=== PATIENT | female | born 1965 | race Caucasian/White ===

== ENCOUNTER → 2020-11-12 08:45 | Outpatient (BNVA) | payer MEDICAID, SELFPAY | PROVIDERS: PCP Internal Medicine; Visit Provider Nurse Practitioner Family | DX: M47.27 Other spondylosis with radiculopathy, lumbosacral region (principal); M96.1 Postlaminectomy syndrome, not elsewhere classified; Z79.891 Long term (current) use of opiate analgesic | CPT/HCPCS: 99202 ==

== ENCOUNTER → 2020-12-17 09:35 | Outpatient (BNVA) | payer MEDICAID, SELFPAY | PROVIDERS: PCP Internal Medicine; Visit Provider Nurse Practitioner Family | DX: M96.1 Postlaminectomy syndrome, not elsewhere classified (principal); M47.27 Other spondylosis with radiculopathy, lumbosacral region; Z79.891 Long term (current) use of opiate analgesic | CPT/HCPCS: 99212 ==

== ENCOUNTER → 2021-01-21 09:53 | Outpatient (BNVA) | payer MEDICAID, SELFPAY | PROVIDERS: PCP Internal Medicine; Visit Provider Nurse Practitioner Family | DX: M96.1 Postlaminectomy syndrome, not elsewhere classified (principal); M47.27 Other spondylosis with radiculopathy, lumbosacral region; Z79.891 Long term (current) use of opiate analgesic | CPT/HCPCS: 99212 ==

== ENCOUNTER 2021-01-21 10:44 | Outpatient (REF) | payer MEDICAID, SELFPAY ==
[2021-01-21 13:29] LABS: Blood Urea Nitrogen 18 mg/dL (9-16); Estimated Glomerular Filt Rate > 60
== END 2021-01-21 10:45 | disposition home or self-care (01) ==
LOC: HO.10HDL 10:44
PROVIDERS: Visit Provider Nurse Practitioner Family
DX: Z01.818 Encounter for other preprocedural examination (principal)
CPT/HCPCS: 36415; 82565; 84520

== ENCOUNTER → 2021-02-18 10:12 | Outpatient (BNVA) | payer MEDICAID, SELFPAY | PROVIDERS: PCP Internal Medicine; Visit Provider Nurse Practitioner Family | DX: M96.1 Postlaminectomy syndrome, not elsewhere classified (principal); M47.27 Other spondylosis with radiculopathy, lumbosacral region; Z79.891 Long term (current) use of opiate analgesic | CPT/HCPCS: 99212 ==

== ENCOUNTER → 2021-03-18 10:00 | Outpatient (BNVA) | payer MEDICAID, SELFPAY | PROVIDERS: PCP Internal Medicine; Visit Provider Nurse Practitioner Family | DX: M96.1 Postlaminectomy syndrome, not elsewhere classified (principal); M47.27 Other spondylosis with radiculopathy, lumbosacral region; Z79.891 Long term (current) use of opiate analgesic | CPT/HCPCS: 99212 ==

== ENCOUNTER → 2021-04-22 10:05 | Outpatient (BNVA) | payer MEDICAID, SELFPAY | PROVIDERS: PCP Internal Medicine; Visit Provider Nurse Practitioner Family | DX: M96.1 Postlaminectomy syndrome, not elsewhere classified (principal); M47.27 Other spondylosis with radiculopathy, lumbosacral region; Z79.891 Long term (current) use of opiate analgesic | CPT/HCPCS: 99212 ==

== ENCOUNTER → 2021-05-20 10:39 | Outpatient (BNVA) | payer MEDICAID, SELFPAY | PROVIDERS: PCP Internal Medicine; Visit Provider Nurse Practitioner Family | DX: M96.1 Postlaminectomy syndrome, not elsewhere classified (principal); M47.27 Other spondylosis with radiculopathy, lumbosacral region; Z79.891 Long term (current) use of opiate analgesic | CPT/HCPCS: 99212 ==

== ENCOUNTER → 2021-06-24 11:43 | Outpatient (BNVA) | payer MEDICAID, SELFPAY | PROVIDERS: PCP Internal Medicine; Visit Provider Nurse Practitioner Family | DX: Z51.81 Encounter for therapeutic drug level monitoring (principal); M96.1 Postlaminectomy syndrome, not elsewhere classified; M47.27 Other spondylosis with radiculopathy, lumbosacral region; Z79.891 Long term (current) use of opiate analgesic | CPT/HCPCS: 99212 ==

== ENCOUNTER 2021-07-04 06:26 | Day surgery (SDC) | payer MEDICAID, SELFPAY ==
[2021-06-27 09:18] VITALS: BMI 47.0
--- NOTE | ~2021-07-04 | FL_ITS ---
EXAMINATION: XR FLUOROSCOPY WITH IMAGES CLINICAL INFORMATION: Battery change COMPARISON: None. TECHNIQUE: Fluoroscopy performed by Dr. Heladio Molina. Fluoroscopy time: 0.0 minutes DAP: 3.93 Gycm2 Images: 2 FINDINGS: Partially imaged spinal stimulator. The generator pack overlies the left iliac crest. The leads terminate at the level of the ninth ribs. FL/FL guidance in OR IMPRESSION: Fluoroscopic guidance provided as described above.
[2021-07-04 06:33] VITALS: BMI 47.0
[2021-07-04 06:45] VITALS: BP 142/60; PULSE 85; RESP 16; TEMP 37.1; O2SAT 95
--- NOTE | 2021-07-04 07:23 | HO.ANESPROP2 ---
HPI - Anesthesia Eval Consult details Narrative: 55 yo female patient for spinal cord stimulator battery replacement PMFSH Active Problems Active Problems: All Active Problems (Updated 07/04/21 @ 06:44 by Jamee Graham) senior living (current) use of opiate analgesic (Acute) Spondylosis of lumbosacral spine with radiculopathy (Acute) Post-laminectomy syndrome (Acute) Preprocedural examination (Acute) S/P insertion of spinal cord stimulator (Acute) +Snoring. Never tested for SHARAD Morbid obesity Past Medical History Medical History (Updated 07/04/21 @ 06:44 by Jamee Graham) Broken humerus Family History Family history of problems with anesthesia: No Surgical History Surgical History (Updated 07/04/21 @ 07:57 by Pati Mcgarry MD) H/O laminectomy H/O: hysterectomy Right humeral fracture History of Problems with Anesthesia: No Social History Social History Patient Tobacco Use Status: Never used Tobacco Use of substances other than those prescribed or required for medical reasons: No Are you DNR?: No Advance Directives: No Advance Directives Information Provided: Yes Meds Allergies Allergy/AdvReac Type Severity Reaction Status Date / Time No Known Allergies Allergy Verified 07/04/21 06:33 Home Medications Medication Instructions Recorded Confirmed Last Taken Type citalopram 10 mg tablet (Celexa) 10 mg PO DAILY 11/12/20 06/24/21 Unknown History diclofenac 50 mg-misoprostol 200 1 tab PO BID 11/12/20 06/24/21 Unknown History mcg tablet,immed.and delayed release fluticasone propionate 220 1 puff INHALATION BID 11/12/20 06/24/21 Unknown History mcg/actuation HFA aerosol inhaler (Flovent HFA) ipratropium 20 mcg-albuterol 100 1 puff INHALATION Q6H 11/12/20 06/24/21 Unknown History mcg/actuation mist for inhalation (Combivent Respimat) lamotrigine 150 mg tablet 150 mg PO DAILY 11/12/20 06/24/21 Unknown History (Lamictal) montelukast 10 mg tablet 10 mg PO BEDTIME 11/12/20 06/24/21 Unknown History (Singulair) tizanidine 2 mg capsule 2 mg PO BEDTIME 11/12/20 06/24/21 Unknown History Exam Exam Date and Time: July 04, 2021 0723 Height,Weight and Vital Signs: Height 5 ft 7 in Weight 136.078 kg Last Vital Signs Temp 98.7 F 07/04/21 06:45 Pulse 85 07/04/21 06:45 Resp 16 07/04/21 06:45 BP 142/60 H 07/04/21 06:45 Pulse Ox 95 07/04/21 06:45 Airway Mallampati Class: II TM Dist: >3cm Neck ROM: Full Loose/Missing/Broken Teeth: Yes (Some missing) Heart: RRR Lungs: CTAB Assessment and Plan Assessment Anesthesia Assessment: Anesthesia Plan Discussed and Chart Reviewed Final Anesthetic Review Family History of Problems with Anesthesia: No History of Problems with Anesthesia: No NPO: Yes ASA Class: III Final Preanesthetic Review: No Changes in Pt Med Stat, Meds/Allgs Chart Reviewed, Consent Obtained/Reviewed and Anes Risks/Benef Reviewed Patient Risk: Intermediate Procedure Risk: Low Assessment/Block/Sedation in SS: Assess/Block/Sedation-SS Anesthetic Plan Anesthetic Plan: MAC: Disposition: Standard PACU
[2021-07-04] MEDS: ceFAZolin Sodium 3 GM in 0.9 % Sodium Chloride 100 ML IV (07:45)
[2021-07-04] MEDS: Lactated Ringers 1,000 ML 100 ML IVCONT (07:59)
[2021-07-04 09:26] VITALS: BP 146/67; PULSE 77; RESP 20; TEMP 36.4; O2SAT 97
--- NOTE | 2021-07-04 09:27 | PM.OP ---
Brief Operative Note Date of Service: 07/04/21 Pre-op diagnosis: Postlaminectomy syndrome, presence of spinal cord stimulator nonfunctioning Post-op diagnosis: same Procedure: Revision of the battery of the spinal cord stimulator [employer] replacement with the new battery. New battery is alpha Implants: New alpha battery [employer] Surgeon: Heladio Molina MD Anesthesia: MAC Was an Photographic Equipment Technician used for this Procedure?: No Estimated blood loss (mL): 20 Pathology: none sent Condition: stable Disposition: PACU
--- NOTE | 2021-07-04 09:35 | W.PM.OPN ---
Operative Note Operative Note Date of Service: 07/04/21 Narrative: Cris is very pleasant 55 years old female who presented herself in my office with complains on movable battery and end of life of the battery of spinal cord stimulator. She came today to the operating room to do revision of the old battery and replacement with the new after technology battery. After a in explaining informed consent the patient was taking to the operating room where she was positioned prone right opting table. C-arm was brought of the operating field and of the spinal cord stimulating system was examined under C-arm view. The appropriate position of the leads was noted in the posterior epidural space. The leads were in the projection of T9 vertebra. The position of the battery was in the left buttock. After that the patient was sedated a and time-out was performed. Time-out was delineating name of the patient date of of the patient, side of the surgery, site of the surgery, risk of fire, risk of DVT, need for antibiotics. The patient received 3 g of cefazolin IV before the onset of the surgery 20 minutes before the incision. Her lower back was prepped with ChloraPrep and draped with full body drape including Ioban film. The previous scar of implantation of the old battery was located in the area of the left buttock. The area of the scar was infiltrated with mixture of lidocaine 2% and Marcaine 0.5%. Two Allis clamps were applied on most medial and most lateral portions of the scar. To incisions were made along side the scar 1 superior and 1 inferior the scar line. The incisions were connected using 10 blade scalpel at lateral and medial sides of previous scar. After that the scar incision was performed thorough hemostasis was obtained using Bovie and I 1 intermittent 3-0 Polysorb suture. After that the battery and stimulating leads were located under subcutaneous tissues there were freed from adhesions and the battery was delivered to the surface of the skin. The hexagonal screws were lose using Aristotle Circle hexagonal screwdriver. After that the battery was disconnected from the leads and delivered to the table. New battery was obtained sterilely. It was connected to the existing screws. The care was taking to superimpose the electrodes on the leads to connection to the battery. The impedance was read and it was demonstrated good connections. Thorough irrigation was performed into the wound and hemostasis was checked. After that to anchoring sutures 1 in the center of the top of the wound and 1 to most lateral corner of the wound were applied using Tycron suture. The electrode leads were gathered behind the body of the battery and battery and electrodes were inserted into the wound pocket. Tycron sutures were tied. After that irrigation was repeated, thorough hemostasis was checked and wound was closed using 0 Polysorb to close the wound, 2-0 Polysorb to approximate the level of the skin, and gosia to close the level of the skin. Bacitracin ointment was applied to the staple line. After that sterile dressing for by forwards applied using Medipore tape. Upon completion of the procedure the patient was taking outside of the operating room, she went for recovery in the PACU. There were no immediate complications.
[2021-07-04 09:41] VITALS: BP 158/77; PULSE 69; RESP 18; O2SAT 100
[2021-07-04 10:00] VITALS: BP 158/93; PULSE 63; RESP 16; TEMP 36.2; O2SAT 100
--- NOTE | 2021-07-04 13:12 | P.HPSUR_ITS ---
Pre-Procedural Eval Section A Date of Service: 07/04/21 Section B Chief Complaint: post laminectomy,spondylosis of lumbosacral Details of Present Illness: as above Relevant Family History (Specify if Yes): No Relevant Social History: None Present Medications: see Short Stay Collaborative assessment Medical History: No relevant PMH History of Previous Operations: Relevant previous surgery/procedure and date(s) Allergies: Allergies Allergy/AdvReac Type Severity Reaction Status Date / Time No Known Allergies Allergy Verified 07/04/21 06:33 Review of Systems Sugical H&P ROS: Negative: Cardiovascular, Respiratory, Neurological, Psych iatric, Hem-Onc, Allergic/Immunologic, Gastrointestinal, Genitourinary, Musculoskeletal, Integumentary, Endocrine and Eyes/Ears/Nose/Throat and Yes, Specify: Constitution (Morbid obesity) Exam Surgical H&P Exam: Normal: HEENT, Normal: Heart, Normal: Lungs, Normal: Extremities, Normal: Skin and Normal: Neurological and Significant Findings: Abdomen (Greatly enlarged) Plan I have reviewed the history and physical and performed a pertinent physical examination on my patient. No changes have occurred unless specified.
== END 2021-07-04 10:39 | disposition home or self-care (01) ==
PROVIDERS: PCP Internal Medicine; Visit Provider Anesthesiology
PROC: (CPT 63685; principal; 2021-07-04 07:30)
DX: Z45.42 Encounter for adjustment and management of neurostimulator (principal); M96.1 Postlaminectomy syndrome, not elsewhere classified; M47.27 Other spondylosis with radiculopathy, lumbosacral region
CPT/HCPCS: 63685; C1787; C1820; J0690; J2250; J3010; J3370

== ENCOUNTER 2021-07-07 13:59 | Outpatient (REF) | payer MEDICAID, SELFPAY ==
--- NOTE | ~2021-07-07 | XR_ITS ---
EXAMINATION: XR THORACOLUMBAR SPINE CLINICAL INFORMATION: Presence of other specified functional implants COMPARISON: Intraoperative fluoroscopy July 04, 2021 TECHNIQUE: 2 views of the thoracic spine were obtained. FINDINGS: Normal alignment of the thoracic spine. Thoracic vertebral body heights are maintained. Disc spaces throughout the mid thoracic spine demonstrate mild to moderate narrowing diffusely. Partially visualized spinal stimulator leads project over the lower thoracic spine. Visualized lung parenchyma is well aerated. XR/XR thoracic spine 2V IMPRESSION: Partially visualized spinal stimulator leads project over the lower thoracic spine
== END 2021-07-07 14:00 | disposition home or self-care (01) ==
LOC: HO.XRAY 13:59
PROVIDERS: Visit Provider Nurse Practitioner Family
DX: Z96.89 Presence of other specified functional implants (principal)
CPT/HCPCS: 72070

== ENCOUNTER → 2021-07-10 11:24 | Outpatient (BNVA) | payer MEDICAID, SELFPAY | PROVIDERS: PCP Internal Medicine; Visit Provider Anesthesiology | DX: M96.1 Postlaminectomy syndrome, not elsewhere classified (principal); M47.27 Other spondylosis with radiculopathy, lumbosacral region; Z79.891 Long term (current) use of opiate analgesic | CPT/HCPCS: 99212 ==

== ENCOUNTER → 2021-07-17 11:25 | Outpatient (BNVA) | payer MEDICAID, SELFPAY | PROVIDERS: PCP Internal Medicine; Visit Provider Anesthesiology | DX: M96.1 Postlaminectomy syndrome, not elsewhere classified (principal); M47.27 Other spondylosis with radiculopathy, lumbosacral region; Z79.891 Long term (current) use of opiate analgesic | CPT/HCPCS: 99212 ==

== ENCOUNTER → 2021-07-22 11:04 | Outpatient (BNVA) | payer MEDICAID, SELFPAY | PROVIDERS: PCP Internal Medicine; Visit Provider Nurse Practitioner Family | DX: Z51.81 Encounter for therapeutic drug level monitoring (principal); M96.1 Postlaminectomy syndrome, not elsewhere classified; M47.27 Other spondylosis with radiculopathy, lumbosacral region; Z79.891 Long term (current) use of opiate analgesic | CPT/HCPCS: 99212 ==

== ENCOUNTER → 2021-08-26 10:48 | Outpatient (BNVA) | payer MEDICAID, SELFPAY | PROVIDERS: Visit Provider Nurse Practitioner Family | DX: Z51.81 Encounter for therapeutic drug level monitoring (principal); M96.1 Postlaminectomy syndrome, not elsewhere classified; M47.27 Other spondylosis with radiculopathy, lumbosacral region; S42.309D Unspecified fracture of shaft of humerus, unspecified arm, subsequent encounter for fracture with routine healing; Z79.891 Long term (current) use of opiate analgesic | CPT/HCPCS: 99212 ==

== ENCOUNTER → 2021-09-23 10:10 | Outpatient (BNVA) | payer MEDICAID, SELFPAY | PROVIDERS: Visit Provider Nurse Practitioner Family | DX: Z51.81 Encounter for therapeutic drug level monitoring (principal); M96.1 Postlaminectomy syndrome, not elsewhere classified; M47.27 Other spondylosis with radiculopathy, lumbosacral region; Z79.891 Long term (current) use of opiate analgesic; S42.309D Unspecified fracture of shaft of humerus, unspecified arm, subsequent encounter for fracture with routine healing | CPT/HCPCS: 99212 ==

== ENCOUNTER → 2021-10-21 12:54 | Outpatient (BNVA) | payer MEDICAID, SELFPAY | PROVIDERS: PCP Internal Medicine; Visit Provider Nurse Practitioner Family | DX: Z51.81 Encounter for therapeutic drug level monitoring (principal); S42.309D Unspecified fracture of shaft of humerus, unspecified arm, subsequent encounter for fracture with routine healing; M96.1 Postlaminectomy syndrome, not elsewhere classified; M47.27 Other spondylosis with radiculopathy, lumbosacral region; Z79.891 Long term (current) use of opiate analgesic | CPT/HCPCS: 99212 ==

== ENCOUNTER → 2021-11-18 10:55 | Outpatient (BNVA) | payer MEDICAID, SELFPAY | PROVIDERS: PCP Internal Medicine; Visit Provider Nurse Practitioner Family | DX: Z51.81 Encounter for therapeutic drug level monitoring (principal); M96.1 Postlaminectomy syndrome, not elsewhere classified; M47.27 Other spondylosis with radiculopathy, lumbosacral region; S42.309D Unspecified fracture of shaft of humerus, unspecified arm, subsequent encounter for fracture with routine healing; Z79.891 Long term (current) use of opiate analgesic | CPT/HCPCS: 99212 ==

== ENCOUNTER → 2021-12-16 11:04 | Outpatient (BNVA) | payer MEDICAID, SELFPAY | PROVIDERS: PCP Internal Medicine; Visit Provider Nurse Practitioner Family | DX: F11.20 Opioid dependence, uncomplicated (principal); Z51.81 Encounter for therapeutic drug level monitoring; M96.1 Postlaminectomy syndrome, not elsewhere classified; M47.27 Other spondylosis with radiculopathy, lumbosacral region; S42.309A Unspecified fracture of shaft of humerus, unspecified arm, initial encounter for closed fracture | CPT/HCPCS: 99212 ==

== ENCOUNTER → 2022-01-13 13:01 | Outpatient (BNVA) | payer MEDICAID, SELFPAY | PROVIDERS: PCP Internal Medicine; Visit Provider Nurse Practitioner Family | DX: M96.1 Postlaminectomy syndrome, not elsewhere classified (principal); M47.27 Other spondylosis with radiculopathy, lumbosacral region; S42.301D Unspecified fracture of shaft of humerus, right arm, subsequent encounter for fracture with routine healing; Z79.891 Long term (current) use of opiate analgesic | CPT/HCPCS: 99212 ==

== ENCOUNTER → 2022-02-10 10:05 | Outpatient (BNVA) | payer MEDICAID, SELFPAY | PROVIDERS: PCP Internal Medicine; Visit Provider Nurse Practitioner Family | DX: Z51.81 Encounter for therapeutic drug level monitoring (principal); Z79.891 Long term (current) use of opiate analgesic; S42.301D Unspecified fracture of shaft of humerus, right arm, subsequent encounter for fracture with routine healing; M96.1 Postlaminectomy syndrome, not elsewhere classified; M47.27 Other spondylosis with radiculopathy, lumbosacral region; M25.561 Pain in right knee; M25.562 Pain in left knee | CPT/HCPCS: 99212 ==

== ENCOUNTER → 2022-03-10 10:38 | Outpatient (BNVA) | payer MEDICAID, SELFPAY | PROVIDERS: PCP Internal Medicine; Visit Provider Nurse Practitioner Family | DX: Z51.81 Encounter for therapeutic drug level monitoring (principal); F11.20 Opioid dependence, uncomplicated; M96.1 Postlaminectomy syndrome, not elsewhere classified; M47.27 Other spondylosis with radiculopathy, lumbosacral region; M25.561 Pain in right knee; M25.562 Pain in left knee; S42.309D Unspecified fracture of shaft of humerus, unspecified arm, subsequent encounter for fracture with routine healing; Z79.891 Long term (current) use of opiate analgesic | CPT/HCPCS: 99212 ==

== ENCOUNTER → 2022-04-07 10:17 | Outpatient (BNVA) | payer MEDICAID, SELFPAY | PROVIDERS: PCP Internal Medicine; Visit Provider Nurse Practitioner Family | DX: M96.1 Postlaminectomy syndrome, not elsewhere classified (principal); M47.27 Other spondylosis with radiculopathy, lumbosacral region; M25.561 Pain in right knee; M25.562 Pain in left knee; Z79.891 Long term (current) use of opiate analgesic | CPT/HCPCS: 99212 ==

== ENCOUNTER → 2022-05-05 10:37 | Outpatient (BNVA) | payer MEDICAID, SELFPAY | PROVIDERS: PCP Internal Medicine; Visit Provider Nurse Practitioner Family | DX: Z51.81 Encounter for therapeutic drug level monitoring (principal); F11.20 Opioid dependence, uncomplicated | CPT/HCPCS: 99211 ==

== ENCOUNTER → 2022-06-02 10:29 | Outpatient (BNVA) | payer MEDICAID, SELFPAY | PROVIDERS: PCP Internal Medicine; Visit Provider Nurse Practitioner Family | DX: M47.27 Other spondylosis with radiculopathy, lumbosacral region (principal); M96.1 Postlaminectomy syndrome, not elsewhere classified; M79.7 Fibromyalgia; M25.561 Pain in right knee; M25.562 Pain in left knee; S42.301D Unspecified fracture of shaft of humerus, right arm, subsequent encounter for fracture with routine healing; K59.03 Drug induced constipation; Z79.891 Long term (current) use of opiate analgesic | CPT/HCPCS: 99212 ==

== ENCOUNTER → 2022-07-02 10:54 | Outpatient (BNVA) | payer MEDICAID, SELFPAY | PROVIDERS: PCP Internal Medicine; Visit Provider Nurse Practitioner Family | DX: Z51.81 Encounter for therapeutic drug level monitoring (principal); F11.20 Opioid dependence, uncomplicated; M96.1 Postlaminectomy syndrome, not elsewhere classified; M47.27 Other spondylosis with radiculopathy, lumbosacral region; S42.301D Unspecified fracture of shaft of humerus, right arm, subsequent encounter for fracture with routine healing; M25.561 Pain in right knee; M25.562 Pain in left knee | CPT/HCPCS: 99212 ==

== ENCOUNTER → 2022-08-06 10:20 | Outpatient (BNVA) | payer MEDICAID, SELFPAY | PROVIDERS: PCP Internal Medicine; Visit Provider Nurse Practitioner Family | DX: M96.1 Postlaminectomy syndrome, not elsewhere classified (principal); M47.27 Other spondylosis with radiculopathy, lumbosacral region; S42.309A Unspecified fracture of shaft of humerus, unspecified arm, initial encounter for closed fracture; M25.561 Pain in right knee; M25.562 Pain in left knee; M79.7 Fibromyalgia; Z79.891 Long term (current) use of opiate analgesic | CPT/HCPCS: 99212 ==

== ENCOUNTER → 2022-08-28 10:15 | Day surgery (SDC) | payer MEDICAID, SELFPAY ==
--- NOTE | 2022-08-27 14:09 | P.CONAN_ITS ---
HPI - Anesthesia Eval Consult details Narrative: 57yo F for Remove Lumbar Spinal Cord Stimulator s/p stim revision 06/2021 with MAC PMFSH Active Problems Active Problems: All Active Problems (Updated 06/02/22 @ 11:35 by ROBYN Ren) Constipation due to pain medication therapy (Acute) Polyarthralgia (Acute) Fibromyalgia (Acute) PTSD (post-traumatic stress disorder) (Acute) Depression (Acute) Anxiety (Acute) Bilateral knee pain (Acute) Opiate analgesic contract exists (Acute) Broken humerus (Acute) group home (current) use of opiate analgesic (Acute) Spondylosis of lumbosacral spine with radiculopathy (Acute) Post-laminectomy syndrome (Acute) Preprocedural examination (Acute) S/P insertion of spinal cord stimulator (Acute) Past Medical History Medical History Broken humerus Family History Family history of problems with anesthesia: No Surgical History Surgical History H/O laminectomy H/O: hysterectomy Right humeral fracture History of Problems with Anesthesia: No Social History Social History Patient Tobacco Use Status: Never used Tobacco Meds Allergies Allergy/AdvReac Type Severity Reaction Status Date / Time No Known Allergies Allergy Verified 08/06/22 10:27 Home Medications Medication Instructions Recorded Confirmed Last Taken Type citalopram 10 mg tablet (Celexa) 10 mg PO DAILY 11/12/20 04/07/22 Unknown History diclofenac 50 mg-misoprostol 200 1 tab PO BID 11/12/20 04/07/22 Unknown History mcg tablet,immed.and delayed release fluticasone propionate 220 1 puff inhalation BID 11/12/20 04/07/22 Unknown History mcg/actuation HFA aerosol inhaler (Flovent HFA) ipratropium 20 mcg-albuterol 100 1 puff inhalation Q6H 11/12/20 04/07/22 Unknown History mcg/actuation mist for inhalation (Combivent Respimat) lamotrigine 150 mg tablet 150 mg PO DAILY 11/12/20 04/07/22 Unknown History (Lamictal) montelukast 10 mg tablet 10 mg PO BEDTIME 11/12/20 04/07/22 Unknown History (Singulair) citalopram 20 mg tablet 20 mg PO DAILY 07/02/22 Unknown History diclofenac sodium 75 mg 75 mg PO BID 07/02/22 Unknown History tablet,delayed release tizanidine 4 mg tablet 4 - 8 mg PO TID PRN 08/06/22 Unknown History Exam Exam Date and Time: August 27, 2022 2313 Assessment and Plan Assessment Anesthesia Assessment: Chart Reviewed Final Anesthetic Review Family History of Problems with Anesthesia: No History of Problems with Anesthesia: No
[2022-08-28 10:26] VITALS: BMI 50.1
[2022-08-28 10:31] VITALS: BP 152/80; PULSE 94; RESP 18; TEMP 37.1; O2SAT 96; BMI 50.1
--- NOTE | 2022-08-28 10:59 | PC.NURSE ---
pt reported an eraser tape abscess at Left lower back, reddened no drainage, pt squeezed this am - no dng. Dr Molina examined. case cancelled. pt aware.
== END ==
PROVIDERS: PCP Internal Medicine; Visit Provider Anesthesiology
DX: M96.1 Postlaminectomy syndrome, not elsewhere classified (principal); Z53.09 Procedure and treatment not carried out because of other contraindication; L02.212 Cutaneous abscess of back [any part, except buttock and flank]

== ENCOUNTER → 2022-09-10 11:00 | Outpatient (BNVA) | payer MEDICAID, SELFPAY | PROVIDERS: PCP Internal Medicine; Visit Provider Nurse Practitioner Family | DX: Z51.81 Encounter for therapeutic drug level monitoring (principal); F11.20 Opioid dependence, uncomplicated; M96.1 Postlaminectomy syndrome, not elsewhere classified; S42.301G Unspecified fracture of shaft of humerus, right arm, subsequent encounter for fracture with delayed healing; M47.27 Other spondylosis with radiculopathy, lumbosacral region; M79.7 Fibromyalgia | CPT/HCPCS: 99212 ==

== ENCOUNTER → 2022-11-06 14:49 | Outpatient (BNVA) | payer MEDICAID, SELFPAY | PROVIDERS: PCP Internal Medicine; Visit Provider Nurse Practitioner Family | DX: M96.1 Postlaminectomy syndrome, not elsewhere classified (principal); M47.27 Other spondylosis with radiculopathy, lumbosacral region; M79.7 Fibromyalgia; Z87.81 Personal history of (healed) traumatic fracture; Z79.891 Long term (current) use of opiate analgesic | CPT/HCPCS: 99212 ==

== ENCOUNTER → 2022-12-03 11:47 | Outpatient (BNVA) | payer MEDICAID, SELFPAY | PROVIDERS: PCP Internal Medicine; Visit Provider Nurse Practitioner Family | DX: Z51.81 Encounter for therapeutic drug level monitoring (principal); F11.20 Opioid dependence, uncomplicated | CPT/HCPCS: 99211 ==

== ENCOUNTER → 2022-12-31 13:42 | Outpatient (BNVA) | payer MEDICAID, SELFPAY | PROVIDERS: PCP Internal Medicine; Visit Provider Nurse Practitioner Family | DX: Z51.81 Encounter for therapeutic drug level monitoring (principal); F11.20 Opioid dependence, uncomplicated; M96.1 Postlaminectomy syndrome, not elsewhere classified; M47.27 Other spondylosis with radiculopathy, lumbosacral region; M79.7 Fibromyalgia; Z79.891 Long term (current) use of opiate analgesic; Z98.890 Other specified postprocedural states; Z87.81 Personal history of (healed) traumatic fracture | CPT/HCPCS: 99212 ==

== ENCOUNTER → 2023-01-12 09:15 | Outpatient (REF) | payer MEDICAID, SELFPAY | LOC: HO.SL 09:15 | PROVIDERS: PCP Internal Medicine; Visit Provider Nurse Practitioner Family | DX: G47.33 Obstructive sleep apnea (adult) (pediatric) (principal); E66.01 Morbid (severe) obesity due to excess calories; R06.83 Snoring; Z68.42 Body mass index [BMI] 45.0-49.9, adult; Z79.891 Long term (current) use of opiate analgesic | CPT/HCPCS: 95806 ==

== ENCOUNTER → 2023-01-28 11:26 | Outpatient (BNVA) | payer OTHER, SELFPAY | PROVIDERS: PCP Internal Medicine; Visit Provider Nurse Practitioner Family | DX: Z51.81 Encounter for therapeutic drug level monitoring (principal); F11.20 Opioid dependence, uncomplicated; M96.1 Postlaminectomy syndrome, not elsewhere classified; M47.27 Other spondylosis with radiculopathy, lumbosacral region; M79.7 Fibromyalgia; Z79.891 Long term (current) use of opiate analgesic; Z98.890 Other specified postprocedural states; Z87.81 Personal history of (healed) traumatic fracture | CPT/HCPCS: 99212 ==

== ENCOUNTER → 2023-03-04 10:12 | Outpatient (BNVA) | payer OTHER, SELFPAY | PROVIDERS: PCP Internal Medicine; Visit Provider Nurse Practitioner Family | DX: Z51.81 Encounter for therapeutic drug level monitoring (principal); F11.20 Opioid dependence, uncomplicated; M96.1 Postlaminectomy syndrome, not elsewhere classified; M47.27 Other spondylosis with radiculopathy, lumbosacral region; M79.7 Fibromyalgia; Z79.891 Long term (current) use of opiate analgesic; Z98.890 Other specified postprocedural states; Z87.81 Personal history of (healed) traumatic fracture | CPT/HCPCS: 99212 ==

== ENCOUNTER → 2023-04-01 13:03 | Outpatient (BNVA) | payer OTHER, SELFPAY | PROVIDERS: PCP Internal Medicine; Visit Provider Nurse Practitioner Family | DX: Z51.81 Encounter for therapeutic drug level monitoring (principal); F11.20 Opioid dependence, uncomplicated; M96.1 Postlaminectomy syndrome, not elsewhere classified; M47.27 Other spondylosis with radiculopathy, lumbosacral region; M79.7 Fibromyalgia; Z79.891 Long term (current) use of opiate analgesic | CPT/HCPCS: 99212 ==

== ENCOUNTER 2023-05-06 13:01 | Outpatient (AMB) | payer OTHER, SELFPAY ==
--- NOTE | 2023-05-06 13:03 | A.OFFVIS_ITS ---
Intake Vital Signs 05/06/23 13:14 Height 5 ft 7 in Weight 297 lb 2 oz BMI 46.5 BP 146/90 H Blood Pressure Location Lt radial Position Sitting Pulse 97 Pulse Source Pulse Oximeter Pulse Oximetry (%) 98 Oxygen Delivery Method Room Air Intake Visit Reasons: Pill count Intake Note: Cris comes in today for a pill count to hydrocodone-acetaminophen, patient should have 100 tablets and at first count presents with 90 tablets, patient then pulled out 10 tablets from pocket, mediation was inspected and recounted and presented with 100 tablets which she last took today 05/06/23 at 12:30pm. Pain today 04/03 Patient was also reminded that all tablets need to be in the prescription bottle at the time of the count due to having 10 tablets in pocket after first count. Patient is aware to have all medication in original bottle at next count. Rocket Propellant Plant Supervisor Required: No Accompanied by: Self / Same As Patient Allergies No Known Allergies Allergy (Verified 05/06/23 13:14) HPI HPI Comments History of Present Illness Details Patient returns today for a pill count. She is supposed to have #100 vicodin pills and presents with #100 pills. This demonstrates a responsible attitude in regards to her medication regimen. Patient continues to report multiple pain generators secondary to post-laminectomy syndrome, arthritis, fibromyalgia and multiple surgeries for a right humeral fracture. Patient presents with significant improvement in her right arm range of motion and enjoys her summer activities with her children and grandchildren. She continues to report adequate analgesia on her current regime of hydrocodone-acetaminophen 10-325 mg QID as needed with no noted side effects except occasional constipation. Denies any fever, weight changes, nausea, sedation, dizziness, or urinary retention. Patient continues to endorse chronic low back pain with left sided radiculopathy. She is in the process of locating SCS remote prior to undergoing MRI lumbar spine at [place]. Patient also requests to schedule SCS implant removal as she has not use it since 2020 due to lead migration. [facility] Medical History Broken humerus Surgical History H/O laminectomy H/O: hysterectomy Right humeral fracture S/P ORIF (open reduction internal fixation) fracture Social History Patient Tobacco Use Status: Never used Tobacco Review of Systems Const All systems reviewed & are unremarkable except as noted in HPI and below Physical Exam Vital Signs: Last Vital Signs Pulse 97 05/06/23 13:14 BP 146/90 H 05/06/23 13:14 Pulse Ox 98 05/06/23 13:14 Oxygen Delivery Method Room Air 05/06/23 13:14 BMI result Body Mass Index 46.5 General: Appears afebrile. Alert and oriented. Mood and affect appropriate. Follows and participates in conversation appropriately. Respiratory effort is unlabored. No cough. No nasal discharge. Able to transition from sit to stand unassisted. Ambulates with bilaterally normal heel strike and toe off. Back/Spine/Pelvis Cervical Spine: cervical ROM normal and No Cervical spine tenderness Thoracic/Lumbar Spine: thoracic and lumbar spine normal to inspection, Thoracic/lumbar spine scar(s), Lasegue's sign positive on the left and diffuse, pain with thoraco-lumbar ROM, paraspinal muscle tenderness, thoraco-lumbar ROM limited, No thoracic spinal tenderness and lumbar spinal tenderness at L4 and at L5 Pelvis: buttock tenderness bilaterally and sciatic notch tenderness on the left Psych Appearance: grossly normal Mental Status: mental status grossly normal Speech and movement: Normal speech and movement present Affect: normal affect Attitude: cooperative Thought process: Normal thought process present Thought content: Normal thought content present, suicidality (none), no hallucinations and Depressive thoughts present Insight: Good insight present (Psych) Judgement: Good judgement present (Psych) Results Reviewed Results Reviewed: XR THORACOLUMBAR SPINE 07/07/21 CLINICAL INFORMATION: Presence of other specified functional implants COMPARISON: Intraoperative fluoroscopy July 04, 2021 FINDINGS: Normal alignment of the thoracic spine. Thoracic vertebral body heights are maintained. Disc spaces throughout the mid thoracic spine demonstrate mild to moderate narrowing diffusely. Partially visualized spinal stimulator leads project over the lower thoracic spine. Visualized lung parenchyma is well aerated. IMPRESSION: Partially visualized spinal stimulator leads project over the lower thoracic spine Assessment & Plan Assessment & Plan (1) Post-laminectomy syndrome: Code(s): M96.1 - Postlaminectomy syndrome, not elsewhere classified (2) Spondylosis of lumbosacral spine with radiculopathy: Code(s): M47.27 - Other spondylosis with radiculopathy, lumbosacral region (3) Opiate analgesic contract exists: Code(s): Z79.891 - USP (current) use of opiate analgesic (4) Fibromyalgia: Code(s): M79.7 - Fibromyalgia (5) Spinal cord stimulator status: Code(s): Z96.89 - Presence of other specified functional implants Plan Patient has shown accountability for her medication regimen and the pill count was accurate. The patient reported no noted side effects. There is no evidence of misuse, abuse or diversion at this time. [employer] reviewed. Script for hydrocodone-acetamiiphen 10-325 mg QID prn is sent with advanced date of 06/01/23. Schedule Lumbar SCS implant removal with sedation and fluoroscopy per patient's request due to lead migration and not in use since 2020. All questions were answered and patient is in agreement of plan. Will follow up in 4 weeks for a pill count or sooner if needed. Medications: Refilled hydrocodone-acetaminophen 10-325 mg Partial Fill upon patient request. 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
[2023-05-06 13:14] VITALS: BP 146/90; PULSE 97; O2SAT 98; BMI 46.5
== END 2023-05-06 13:20 | disposition home or self-care (01) ==
PROVIDERS: PCP Internal Medicine; Visit Provider Nurse Practitioner Family
DX: M96.1 Postlaminectomy syndrome, not elsewhere classified (principal); M47.27 Other spondylosis with radiculopathy, lumbosacral region; Z79.891 Long term (current) use of opiate analgesic; M79.7 Fibromyalgia; Z96.89 Presence of other specified functional implants
CPT/HCPCS: 99214

== ENCOUNTER → 2023-05-06 13:01 | Outpatient (BNVA) | payer OTHER, SELFPAY | PROVIDERS: PCP Internal Medicine; Visit Provider Nurse Practitioner Family | DX: M96.1 Postlaminectomy syndrome, not elsewhere classified (principal); M47.27 Other spondylosis with radiculopathy, lumbosacral region; M79.7 Fibromyalgia; Z79.891 Long term (current) use of opiate analgesic; Z96.89 Presence of other specified functional implants | CPT/HCPCS: 99212 ==

== ENCOUNTER → 2023-06-08 12:48 | Outpatient (BNVA) | payer OTHER, SELFPAY | PROVIDERS: PCP Internal Medicine; Visit Provider Nurse Practitioner Family | DX: Z79.891 Long term (current) use of opiate analgesic (principal) | CPT/HCPCS: 99211 ==

== ENCOUNTER 2023-06-25 07:59 | Day surgery (SDC) | payer OTHER, SELFPAY ==
[2023-06-23 08:01] VITALS: BMI 46.5
--- NOTE | ~2023-06-25 | FL_ITS ---
EXAMINATION: XR FLUOROSCOPY WITH IMAGES CLINICAL INFORMATION: Lumbar spinal stimulator removal. COMPARISON: 07/04/2021 TECHNIQUE: Fluoroscopy Supervised By: Dr. Heladio Molnia. Fluoroscopy Time: 0.4 minutes. Cumulative Dose: 11.2 mGy. DAP: 3.07 Gycm2. Images: 4. FINDINGS: Spinal stimulator wiring terminates at the lower thoracic spine on initial images. There is removal of these wires. On the final image there are no remaining wires seen. FL/FL guidance in OR IMPRESSION: Fluoroscopic guidance for removal of spinal stimulator wiring. Please refer to procedural report for further information.
[2023-06-25 08:03] VITALS: BP 136/55; PULSE 97; RESP 20; TEMP 36.9; O2SAT 98
--- NOTE | 2023-06-25 09:38 | MHC.SHP ---
Pre-Procedural Eval Section A Date of Service: 06/25/23 The patient is an INPATIENT: No Changes since office visit: Yes Patient answered all questions The History & Physical has been completed within 30 days and I have reviewed it.: No Section B Chief Complaint: Postlaminectomy syndrome, not elsewhere classified Details of Present Illness: as above Relevant Family History (Specify if Yes): No Relevant Social History: None Present Medications: None Medical History: No relevant PMH History of Previous Operations: Relevant previous surgery/procedure and date(s) Allergies: Allergies Allergy/AdvReac Type Severity Reaction Status Date / Time No Known Allergies Allergy Verified 06/08/23 13:25 Review of Systems Sugical H&P ROS: Negative: Cardiovascular, Respiratory, Neurological, Psychiatric, Hem-Onc, Allergic/Immunologic, Gastrointestinal, Genitourinary, Musculoskeletal, Integumentary, Endocrine and Eyes/Ears/Nose/Throat and Yes, Specify: Constitution (morbid obesity) Exam Surgical H&P Exam: Normal: HEENT, Normal: Heart, Normal: Lungs, Normal: Extremities, Normal: Skin and Normal: Neurological and Significant Findings: Abdomen (enlarged 2 to i/a&sq fat) Plan Diagnosis/Plan: Unchanged I have reviewed the history and physical and performed a pertinent physical examination on my patient. No changes have occurred unless specified. Time Spent With Patient Time: Total time managing care of this patient today ____ minutes.
--- NOTE | 2023-06-25 10:42 | P.CONAN_ITS ---
HPI - Anesthesia Eval Consult details Narrative: 57 yo F presenting for lumbar spinal cord stimulator removal. Has restricted RUE movement due to multiple humerus surgeries. PMFSH Active Problems Active Problems: All Active Problems (Updated 06/25/23 @ 08:16 by Tish Kidd RN) residential (current) use of opiate analgesic (Acute) Spondylosis of lumbosacral spine with radiculopathy (Acute) Post-laminectomy syndrome (Acute) Preprocedural examination (Acute) S/P insertion of spinal cord stimulator (Acute) Opiate analgesic contract exists (Acute) Bilateral knee pain (Acute) Anxiety (Acute) Depression (Acute) PTSD (post-traumatic stress disorder) (Acute) Fibromyalgia (Acute) Polyarthralgia (Acute) Constipation due to pain medication therapy (Acute) Spinal cord stimulator status (Acute) Morbid obesity with BMI of 45.0-49.9, adult (Acute) S/P ORIF (open reduction internal fixation) fracture (Acute) Broken humerus (Acute) Past Medical History Medical History Bipolar 1 disorder, depressed Broken humerus Family History Family history of problems with anesthesia: No Surgical History Surgical History H/O laminectomy H/O: hysterectomy Right humeral fracture S/P ORIF (open reduction internal fixation) fracture History of Problems with Anesthesia: No Social History Social History Patient Tobacco Use Status: Never used Tobacco Are you DNR?: No Advance Directives: No Advance Directives Information Provided: Yes Meds Allergies Allergy/AdvReac Type Severity Reaction Status Date / Time No Known Allergies Allergy Verified 06/08/23 13:25 Home Medications Medication Instructions Recorded Confirmed Last Taken Type fluticasone propionate 220 1 puff inhalation BID 11/12/20 06/08/23 08/28/22 History mcg/actuation HFA aerosol inhaler (Flovent HFA) ipratropium 20 mcg-albuterol 100 1 puff inhalation Q6H 11/12/20 06/08/23 06/25/23 07:00 History mcg/actuation mist for inhalation (Combivent Respimat) lamotrigine 150 mg tablet 150 mg PO DAILY 11/12/20 06/08/2323 07:00 History (Lamictal) montelukast 10 mg tablet 10 mg PO BEDTIME 11/12/20 06/08/23 Unknown History (Singulair) citalopram 20 mg tablet 20 mg PO DAILY 07/02/22 06/08/23 Unknown History diclofenac sodium 75 mg 75 mg PO BID 07/02/22 06/08/23 06/16/23 History tablet,delayed release epinephrine 0.3 mg/0.3 mL 0.3 mg IM ONCE 03/04/23 06/08/23 Unknown History injection, auto-injector Exam Exam Date and Time: June 25, 2023 0915 Height,Weight and Vital Signs: Height 5 ft 7 in Weight 134.717 kg Last Vital Signs Temp 98.4 F 06/25/23 08:03 Pulse 97 06/25/23 08:03 Resp 20 06/25/23 08:03 BP 136/55 L 06/25/23 08:03 Pulse Ox 98 06/25/23 08:03 O2 Del Method Room Air 06/25/23 08:03 Airway Mallampati Class: II TM Dist: >3cm Neck ROM: Limited Loose/Missing/Broken Teeth: Yes (multiple missing, broken, and discolored teeth) Heart: S1S2 Lungs: CTAB Assessment and Plan Final Anesthetic Review Family History of Problems with Anesthesia: No History of Problems with Anesthesia: No ASA Class: III Final Preanesthetic Review: No Changes in Pt Med Stat, Meds/Allgs Chart Reviewed, Consent Obtained/Reviewed and Anes Risks/Benef Reviewed Patient Risk: Intermediate Procedure Risk: Low Anesthetic Plan Anesthetic Plan: GA and Agree w/ Assess. and Plan Disposition: Standard PACU
[2023-06-25 12:33] VITALS: BP 133/75; PULSE 96; RESP 18; TEMP 36.4; O2SAT 99
[2023-06-25 12:38] VITALS: BP 110/84; PULSE 98; RESP 16; O2SAT 95
[2023-06-25 12:43] VITALS: BP 114/78; PULSE 94; RESP 16; O2SAT 95
--- NOTE | 2023-06-25 12:43 | P.BOP_ITS ---
Brief Operative Note Date of Service: 06/25/23 Pre-op diagnosis: presence of SCS [employer] Post-op diagnosis: same Procedure: removal of the [employer] spinal cord stimulator Implants: none Surgeon: Heladio Molina MD Anesthesia: GETA Was an Fish Egg Packer used for this Procedure?: No Estimated blood loss (mL): 29 Pathology: none sent Condition: stable Disposition: PACU
[2023-06-25 12:48] VITALS: BP 143/72; PULSE 91; RESP 16; O2SAT 94
[2023-06-25 13:03] VITALS: BP 146/82; PULSE 92; RESP 16; TEMP 36.4; O2SAT 94
[2023-06-25] MEDS: oxyCODONE HCl Immed Release 5 MG TABLET 10 MG PO (13:07)
--- NOTE | 2023-06-25 13:58 | W.PM.OPN ---
Operative Note Operative Note Date of Service: 06/25/23 Narrative: removal of the spinal cord stimulator [employer] and removal of the epidural electrode leads. patient came to the operating room, she was position supine on the stretcher, [employer] monitors were applied, general anesthesia with endotracheal intubation was induced. After that patient was transferred to the operating room prone and all pressure points were protected. Time-out was performed delineating correct site and side of the procedure name and date of of the patient patient's allergies, needs for antibiotics peer Patient received 3 g of cefazolin approximately 30 minutes before the procedure. Mid back and lower back of the patient was prepped with ChloraPrep and draped with sterile utility adhesive towels and laparoscopy fenestrated drape. Sterilely draped C-arm was brought of the operating field and picture of the epidural leads was demonstrated in the epidural space on the screen. Attention was 1st concentrated on the left upper buttock of the patient where patient had her battery implanted. The scar of the implantation of spinal cord stimulator was located and this into of the scar was injected with mixture of lidocaine 2% and ropivacaine 0.5% 1-1. Horizontal linear is incision 6 cm long was performed alongside the previous scar. The capsule surrounding the spinal cord stimulator battery was incised using scalpel and then incision was widened and deepened using dull dissection. After that spinal cord stimulator battery was located at the capsule /pocket, anchoring sutures were severed and the spinal cord stimulator was removed. Attempt was made to gently pull on the epidural leads with intention to dislodge them from the epidural space into subcutaneous tissues and eventually into the open wound in the upper buttock area. Unfortunately resistance was met and decision was made to open up the midline incision. The previous scar from midline incision was infiltrated with the same mixture of lidocaine and Ropivacaine and after that 10 blade scalpel was used to make skin incision 8 cm long. Using dull and sharp dissection without implementation of Electrocautery the wound was deepened and widened, multiple adhesions and connective tissue layers were severed using sharp and dull dissection under direct vision as well as under x-ray observation. eventually the anchors were found fasting to prevertebral fascia the were freed with sharp dissection from surrounding tissues and epidural leads were gently pulled from the epidural space in delivered on the surface of the skin. The were severed in the wound and then the battery and the distal portion of the epidural leads were removed from the Patient's upper buttock wound. Thorough irrigation was performed, thorough hemostasis was performed now using electrocautery only after the spinal cord stimulator system was removed from the patient's body. the left upper buttock incision was packed with 4 x 4 soaked with irrigation fluid containing vancomycin. Sutures 0 polysorb were used to close midline incision and then 2-0 Polysorb sutures - was used to approximate skin level. The gosia applied to the skin level. After that attention was concentrated on the left upper buttock, 4 x 4 was removed and using sharp and electrocautery dissection the capsule was excised thorough irrigation was performed and thorough hemostasis using electrocautery was obtained. After that irrigation was repeated and the wound was closed using 0 Polysorb sutures. 2-0 Polysorb sutures were used proximate the level of the skin and gosia were applied on the skin. Bacitracin was smeared on both incisions and sterile dressing was applied using 4x4s and Tegaderm films. The patient tolerated procedure fairly well. She was awaken extubated and transferred stable to PACU for the recovery she went home without immediate complications.
== END 2023-06-25 13:43 | disposition home or self-care (01) ==
PROVIDERS: PCP Internal Medicine; Visit Provider Anesthesiology
PROC: (CPT 63661; principal; 2023-06-25 10:00)
DX: M96.1 Postlaminectomy syndrome, not elsewhere classified (principal); Z96.89 Presence of other specified functional implants; M47.27 Other spondylosis with radiculopathy, lumbosacral region; M79.7 Fibromyalgia; Z79.891 Long term (current) use of opiate analgesic; Z98.890 Other specified postprocedural states
CPT/HCPCS: 63661; 63688; J0131; J0330; J0690; J1100; J1170; J2250; J2405; J2795; J3010; J3370

== ENCOUNTER → 2023-06-25 07:59 | Outpatient (BNV) | payer OTHER, SELFPAY | PROVIDERS: PCP Internal Medicine; Visit Provider Anesthesiology | DX: M96.1 Postlaminectomy syndrome, not elsewhere classified (principal) | CPT/HCPCS: 63661; 63688 ==

== ENCOUNTER 2023-07-01 13:12 | Outpatient (AMB) | payer OTHER, SELFPAY ==
--- NOTE | 2023-07-01 13:13 | MHC.OFFVIS ---
Intake Vital Signs 07/01/23 13:18 Height 5 ft 7 in Weight 296 lb 4 oz BMI 46.4 BP 151/73 H Blood Pressure Location Rt brachial Position Sitting Pulse 95 Pulse Source Pulse Oximeter Pulse Oximetry (%) 96 Oxygen Delivery Method Room Air Intake Visit Reasons: s/p SCS Removal 06/25/23 Intake Note: Pain today 410. Garbage Collection Supervisor Required: No Accompanied by: Self / Same As Patient Allergies No Known Allergies Allergy (Verified 07/01/23 13:18) HPI HPI Comments History of Present Illness Details Patient presents today status post removal of the spinal cord stimulator [employer] and removal of the epidural electrode leads on 06/25/23. Patient reports minimal pain at 4/10 post procedure on current opioid regime. The dressings were removed today. Both incision sites and gosia are clean, dry, intact, no pathological discharge, no erythema, no tenderness and no swelling. Mild redness noted on proximal back incision along ogsia. Patient reports during high humidity and hot weather she has been sweating and had to reinforce dressing. Both incision sites were cleansed with ChloraPrep, Bacitracin ointment, dry sterile and Tegaderm dressing were applied.?Patient will follow up next week for gosia removal if healing well. Denies any recent cough, cold, infection, fever or other significant changes in medical history since last office visit. Patient denies any bladder or bowel incontinence or saddle anesthesia. PRIOR: Patient returns today for a pill count. She is supposed to have #100 vicodin pills and presents with #100 pills. This demonstrates a responsible attitude in regards to her medication regimen. Patient continues to report multiple pain generators secondary to post-laminectomy syndrome, arthritis, fibromyalgia and multiple surgeries for a right humeral fracture. Patient presents with significant improvement in her right arm range of motion and enjoys her summer activities with her children and grandchildren. She continues to report adequate analgesia on her current regime of hydrocodone-acetaminophen 10-325 mg QID as needed with no noted side effects except occasional constipation. Denies any fever, weight changes, nausea, sedation, dizziness, or urinary retention. Patient continues to endorse chronic low back pain with left sided radiculopathy. She is in the process of locating SCS remote prior to undergoing MRI lumbar spine at [facility]. Patient also requests to schedule SCS implant removal as she has not use it since 2020 due to lead migration. [facility] Medical History Bipolar 1 disorder, depressed Broken humerus Surgical History S/P ORIF (open reduction internal fixation) fracture Right humeral fracture H/O: hysterectomy H/O laminectomy Social History Patient Tobacco Use Status: Never used Tobacco Review of Systems Const All systems reviewed & are unremarkable except as noted in HPI and below Physical Exam Vital Signs: Last Vital Signs Pulse 95 07/01/23 13:18 BP 151/73 H 07/01/23 13:18 Pulse Ox 96 07/01/23 13:18 Oxygen Delivery Method Room Air 07/01/23 13:18 BMI result Body Mass Index 46.4 General: Appears afebrile. Alert and oriented. Mood and affect appropriate. Follows and participates in conversation appropriately. Respiratory effort is unlabored. No cough. Able to transition from sit to stand unassisted. Ambulates with bilaterally normal heel strike and toe off. Back/Spine/Pelvis Other: Dressing changed today. The wounds are clean, no pathological discharge, no swelling, no local temperature, no tenderness on palpation. Mild redness with back incision at the proximal area of incision around top staple. No swelling. The wounds were washed with ChloraPrep and bacitracin with dry and Tegaderm dressings were applied. Assessment & Plan Assessment & Plan (1) Spinal cord stimulator status: Comment: Removed on 06/25/23 Code(s): Z96.89 - Presence of other specified functional implants (2) Morbid obesity with BMI of 45.0-49.9, adult: Code(s): E66.01 - Morbid (severe) obesity due to excess calories; Z68.42 - Body mass index [BMI] 45.0-49.9, adult (3) Post-laminectomy syndrome: Code(s): M96.1 - Postlaminectomy syndrome, not elsewhere classified (4) Spondylosis of lumbosacral spine with radiculopathy: Code(s): M47.27 - Other spondylosis with radiculopathy, lumbosacral region Plan Patient is status post removal of the spinal cord stimulator [employer] and removal of the epidural electrode leads on 06/25/23. Her pain is well controlled on current opioid regime. Incisional wounds were examined today and dressings were changed. Both incision sites and gosia are clean, dry, intact, no pathological discharge, no erythema, no tenderness and no swelling. Mild redness noted on proximal back incision along gosia. Both incision sites were cleansed with ChloraPrep, Bacitracin ointment, dry sterile and Tegaderm dressing were applied. Patient will follow up next week for gosia removal if healing well. Patient will avoid showers for now. All questions and concerns have been answered patient agreed. Follow-up next week for pill count and staple removal and sooner as needed. Coding Level of Care Code Est Pt Level 3 (80341) Diagnoses Spinal cord stimulator status Z96.89 Morbid obesity with BMI of 45.0-49.9, adult E66.01; Z68.42 Post-laminectomy syndrome M96.1 Spondylosis of lumbosacral spine with radiculopathy M47.27
[2023-07-01 13:18] VITALS: BP 151/73; PULSE 95; O2SAT 96; BMI 46.4
== END 2023-07-01 13:32 | disposition home or self-care (01) ==
PROVIDERS: PCP Internal Medicine; Visit Provider Nurse Practitioner Family
DX: M96.1 Postlaminectomy syndrome, not elsewhere classified (principal); Z96.89 Presence of other specified functional implants; M47.27 Other spondylosis with radiculopathy, lumbosacral region
CPT/HCPCS: 99024

== ENCOUNTER → 2023-07-01 13:12 | Outpatient (BNVA) | payer OTHER, SELFPAY | PROVIDERS: PCP Internal Medicine; Visit Provider Nurse Practitioner Family ==

== ENCOUNTER 2023-07-08 12:52 | Outpatient (AMB) | payer OTHER, SELFPAY ==
--- NOTE | 2023-07-08 13:00 | MHC.OFFVIS ---
Intake Vital Signs 07/08/23 13:08 Height 5 ft 7 in Weight 296 lb 6 oz BMI 46.4 BP 149/77 H Blood Pressure Location Rt brachial Position Sitting Pulse 99 Pulse Source Pulse Oximeter Pulse Oximetry (%) 98 Oxygen Delivery Method Room Air Intake Visit Reasons: s/p SCS Removal 06/25/23 & pill count Intake Note: Cris comes in today for a pill count to hydrocodone-acetaminophen, patient should have 112 tablets and presents with 118 tablets which she last took today 07/08/23 at 8am. Pain today 04/03. Chief Of Safety And Protection Required: No Accompanied by: Self / Same As Patient Allergies No Known Allergies Allergy (Verified 07/08/23 13:08) HPI HPI Comments History of Present Illness Details Patient presents today 2 weeks status post removal of the spinal cord stimulator [employer] and removal of the epidural electrode leads on 06/25/23. She presents today for pill count and coleman removal. Patient is supposed to have #112 Vicodin pills and presents with #118pills. This demonstrates a responsible attitude in regards to her medication regimen. She continues to report adequate analgesia on her current regime of hydrocodone-acetaminophen 10-325 mg QID as needed with no noted side effects except occasional constipation for which she takes Colace, increases fiber and fluid intake. The dressings were removed today. Both incision sites and coleman are clean, dry, intact, no pathological discharge, no redness, no erythema, no tenderness and no swelling. Incision sites were cleansed with ChloraPrep, coleman were removed and incisions were cleansed with ChloraPrep again, Steri strips applied and then dressed with Bacitracin ointment, dry sterile and Tegaderm dressing. Denies any recent cough, cold, infection, fever or other significant changes in medical history since last office visit. Patient denies any bladder or bowel incontinence or saddle anesthesia. [facility] Medical History Bipolar 1 disorder, depressed Broken humerus Surgical History S/P ORIF (open reduction internal fixation) fracture Right humeral fracture H/O: hysterectomy H/O laminectomy Social History Patient Tobacco Use Status: Never used Tobacco Review of Systems Const All systems reviewed & are unremarkable except as noted in HPI and below Physical Exam Vital Signs: Last Vital Signs Pulse 99 07/08/23 13:08 BP 149/77 H 07/08/23 13:08 Pulse Ox 98 07/08/23 13:08 Oxygen Delivery Method Room Air 07/08/23 13:08 BMI result Body Mass Index 46.4 General: Appears afebrile. Alert and oriented. Mood and affect appropriate. Follows and participates in conversation appropriately. Respiratory effort is unlabored. No cough. Able to transition from sit to stand unassisted. Ambulates with bilaterally normal heel strike and toe off. Back/Spine/Pelvis Other: Dressing changed today. The wounds are clean, no pathological discharge, no redness, no swelling, no local temperature, no tenderness on palpation. Coleman were removed today and Steri-strips were applied. Dressing change done in clinic today. Assessment & Plan Assessment & Plan (1) Morbid obesity with BMI of 45.0-49.9, adult: Code(s): E66.01 - Morbid (severe) obesity due to excess calories; Z68.42 - Body mass index [BMI] 45.0-49.9, adult (2) Post-laminectomy syndrome: Code(s): M96.1 - Postlaminectomy syndrome, not elsewhere classified (3) Spondylosis of lumbosacral spine with radiculopathy: Code(s): M47.27 - Other spondylosis with radiculopathy, lumbosacral region (4) Fibromyalgia: Code(s): M79.7 - Fibromyalgia (5) Opiate analgesic contract exists: Code(s): Z79.891 - alf (current) use of opiate analgesic Plan Patient is 2 weeks status post removal of the spinal cord stimulator [employer] and removal of the epidural electrode leads on 06/25/23. [place] were removed today and dressing change was done today with application of Steri-strips. Patient will avoid showers for now. Discussed activity restrictions and precautions. Her pain is well controlled on current opioid regime. Patient has shown accountability for her medication regimen and the pill count was accurate. The patient reported no noted side effects. There is no evidence of misuse, abuse or diversion at this time. [employer] reviewed. Script for hydrocodone-acetaminophen 10-325 mg QID prn is sent with advanced date of 08/04/23. All questions and concerns have been answered patient agreed. Follow-up next week for pill count and sooner as needed. Medications: Refilled hydrocodone-acetaminophen 10-325 mg Partial Fill upon patient request. 1 tab PO QID PRN 120 tabs 0RF severe pain (scale score 7-10) 30 days M25.561 - Pain in right knee, M25.562 - Pain in left knee, M47.27 - Other spondylosis with radiculopathy, lumbosacral region, M96.1 - Postlaminectomy syndrome, not elsewhere classified, Z79.891 - alf (current) use of opiate analgesic Coding Level of Care Code Est Pt Level 4 (04180) Diagnoses Morbid obesity with BMI of 45.0-49.9, adult E66.01; Z68.42 Post-laminectomy syndrome M96.1 Spondylosis of lumbosacral spine with radiculopathy M47.27 Fibromyalgia M79.7 Opiate analgesic contract exists Z79.891
[2023-07-08 13:08] VITALS: BP 149/77; PULSE 99; O2SAT 98; BMI 46.4
== END 2023-07-08 13:29 | disposition home or self-care (01) ==
PROVIDERS: PCP Internal Medicine; Visit Provider Nurse Practitioner Family
DX: M96.1 Postlaminectomy syndrome, not elsewhere classified (principal); M47.27 Other spondylosis with radiculopathy, lumbosacral region; Z79.891 Long term (current) use of opiate analgesic; E66.01 Morbid (severe) obesity due to excess calories; Z68.42 Body mass index [BMI] 45.0-49.9, adult
CPT/HCPCS: 99214

== ENCOUNTER → 2023-07-08 12:52 | Outpatient (BNVA) | payer OTHER, SELFPAY | PROVIDERS: PCP Internal Medicine; Visit Provider Nurse Practitioner Family | DX: M96.1 Postlaminectomy syndrome, not elsewhere classified (principal); M47.27 Other spondylosis with radiculopathy, lumbosacral region; M79.7 Fibromyalgia; E66.01 Morbid (severe) obesity due to excess calories; Z68.42 Body mass index [BMI] 45.0-49.9, adult; Z79.891 Long term (current) use of opiate analgesic; Z98.890 Other specified postprocedural states | CPT/HCPCS: 99212 ==

== ENCOUNTER 2023-08-12 12:45 | Outpatient (AMB) | payer OTHER, SELFPAY ==
--- NOTE | 2023-08-12 13:06 | A.OFFVIS_ITS ---
Intake Vital Signs 08/12/23 13:07 Height 5 ft 7 in Weight 296 lb BMI 46.4 BP 190/76 H Blood Pressure Location Rt brachial Position Sitting Pulse 107 H Pulse Source Pulse Oximeter Pulse Oximetry (%) 97 Oxygen Delivery Method Room Air Intake Visit Reasons: PILL COUNT/CONFIRMED Intake Note: Cris comes in today for a pill count to hydrocodone-acetaminophen. Patient should have 84 tablets and presents with 90 tablets which she last took today 08/12/23 at 10am. Pain today 05/03. Hand Candy Cutter Required: No Accompanied by: Self / Same As Patient Allergies No Known Allergies Allergy (Verified 08/12/23 13:09) HPI HPI Comments History of Present Illness Details Patient presents today for a pill count. Patient is supposed to have #84 Vicodin pills and presents with #90 pills. This demonstrates a responsible attitude in regards to her medication regimen. She continues to report adequate analgesia on her current regime of hydrocodone-acetaminophen 10-325 mg QID as needed with no noted side effects except occasional constipation for which she takes Colace, increases dietary fiber and fluid intake. Denies any recent cough, cold, infection, fever or other significant changes in medical history since last office visit. Patient continues to endorse lower back pain pain that radiates to her lumbar and sacral areas, worse on the right side with radiation to her RLE laterally and slightly anteriorly. Her lumbar and left buttock incisions well healed s/p SCS implant removal. She completed thoracic and lumbar spine MRIs yesterday at [facility] [[email or web address]] and cervical MRI is scheduled on 08/16/23. Patient denies any bladder or bowel incontinence or saddle anesthesia. [facility] Medical History (Updated 08/12/23 @ 13:26 by ROBYN Ren) Spinal cord stimulator status Bipolar 1 disorder, depressed Broken humerus Surgical History S/P ORIF (open reduction internal fixation) fracture Right humeral fracture H/O: hysterectomy H/O laminectomy Social History Patient Tobacco Use Status: Never used Tobacco Review of Systems Const All systems reviewed & are unremarkable except as noted in HPI and below Physical Exam Vital Signs: Last Vital Signs Pulse 107 H 08/12/23 13:07 BP 190/76 H 08/12/23 13:07 Pulse Ox 97 10/19/23 13:07 Oxygen Delivery Method Room Air 08/12/23 13:07 BMI result Body Mass Index 46.4 General: Appears afebrile. Alert and oriented. Mood and affect appropriate. Follows and participates in conversation appropriately. Respiratory effort is unlabored. No cough. Able to transition from sit to stand unassisted. Ambulates with bilaterally normal heel strike and toe off. Back/Spine/Pelvis Cervical Spine: cervical ROM normal, pain with cervical ROM and No Cervical spine tenderness Thoracic/Lumbar Spine: thoracic and lumbar spine normal to inspection, Thoracic/lumbar spine scar(s), Lasegue's sign positive on the right and diffuse, pain with thoraco-lumbar ROM, paraspinal muscle tenderness, No thoracic spinal tenderness and lumbar spinal tenderness at L4 and at L5 Pelvis: buttock tenderness on the right Sacroiliac joints: on the right (Negative Patricks and Stinchfield) tender to palpation and on the left nontender Assessment & Plan Assessment & Plan (1) Morbid obesity with BMI of 45.0-49.9, adult: Code(s): E66.01 - Morbid (severe) obesity due to excess calories; Z68.42 - Body mass index [BMI] 45.0-49.9, adult (2) Post-laminectomy syndrome: Code(s): M96.1 - Postlaminectomy syndrome, not elsewhere classified (3) Spondylosis of lumbosacral spine with radiculopathy: Code(s): M47.27 - Other spondylosis with radiculopathy, lumbosacral region (4) Fibromyalgia: Code(s): M79.7 - Fibromyalgia (5) Opiate analgesic contract exists: Code(s): Z79.891 - manager long term care (current) use of opiate analgesic Plan Patient has shown accountability for her medication regimen and the pill count was accurate. The patient reported no noted side effects. There is no evidence of misuse, abuse or diversion at this time. [employer] reviewed. Script for hydrocodone-acetaminophen 10-325 mg QID prn is sent with advanced date of 09/03/23. All questions and concerns have been answered patient agreed. Follow- up next week for pill count and sooner as needed. Medications: Refilled hydrocodone-acetaminophen 10-325 mg Partial Fill upon patient request. 1 tab PO QID 30 days PRN 120 tabs 0RF severe pain (scale score 7-10) M25.561 - Pain in right knee, M25.562 - Pain in left knee, M47.27 - Other spondylosis with radiculopathy, lumbosacral region, M96.1 - Postlaminectomy syndrome, not elsewhere classified, Z79.891 - skilled nursing (current) use of opiate analgesic Coding Level of Care Code Est Pt Level 4 (35139) Diagnoses Morbid obesity with BMI of 45.0-49.9, adult E66.01; Z68.42 Post-laminectomy syndrome M96.1 Spondylosis of lumbosacral spine with radiculopathy M47.27 Fibromyalgia M79.7 Opiate analgesic contract exists Z79.891
[2023-08-12 13:07] VITALS: BP 190/76; PULSE 107; O2SAT 97; BMI 46.4
== END 2023-08-12 13:21 | disposition home or self-care (01) ==
PROVIDERS: PCP Internal Medicine; Visit Provider Nurse Practitioner Family
DX: E66.01 Morbid (severe) obesity due to excess calories (principal); Z68.42 Body mass index [BMI] 45.0-49.9, adult; M96.1 Postlaminectomy syndrome, not elsewhere classified; M47.27 Other spondylosis with radiculopathy, lumbosacral region; M79.7 Fibromyalgia; Z79.891 Long term (current) use of opiate analgesic
CPT/HCPCS: 99214

== ENCOUNTER → 2023-08-12 12:45 | Outpatient (BNVA) | payer OTHER, SELFPAY | PROVIDERS: PCP Internal Medicine; Visit Provider Nurse Practitioner Family | DX: Z51.81 Encounter for therapeutic drug level monitoring (principal); M96.1 Postlaminectomy syndrome, not elsewhere classified; M47.27 Other spondylosis with radiculopathy, lumbosacral region; M79.7 Fibromyalgia; E66.01 Morbid (severe) obesity due to excess calories; Z68.42 Body mass index [BMI] 45.0-49.9, adult; Z79.891 Long term (current) use of opiate analgesic | CPT/HCPCS: 99212 ==

== ENCOUNTER → 2023-09-15 09:28 | Outpatient (BNVA) | payer OTHER, SELFPAY | PROVIDERS: PCP Internal Medicine; Visit Provider Nurse Practitioner Family | DX: Z79.891 Long term (current) use of opiate analgesic (principal) | CPT/HCPCS: 99211 ==

== ENCOUNTER 2023-10-14 09:16 | Outpatient (AMB) | payer OTHER, SELFPAY ==
--- NOTE | 2023-10-14 09:21 | MHC.OFFVIS ---
Intake Vital Signs 10/14/23 09:32 Height 5 ft 7 in Weight 294 lb 2 oz BMI 46.1 BP 162/71 H Blood Pressure Location Rt brachial Position Sitting Pulse 106 H Pulse Source Pulse Oximeter Pulse Oximetry (%) 95 Oxygen Delivery Method Room Air Intake Visit Reasons: Pill Count/confirmed Intake Note: [facility] comes in for a pill count to hydrocodone-acetaminophen, patient should have 72 tablets and presents with 84 tablets which she last took today 10/14/23 at 7:30am. Pain today 03/03 [employer] Director Required: No Accompanied by: Self / Same As Patient Allergies No Known Allergies Allergy (Verified 10/14/23 09:32) HPI HPI Comments History of Present Illness Details Patient presents today for a pill count. Patient is supposed to have #72 Vicodin pills and presents with #84 pills. This demonstrates a responsible attitude in regards to her medication regimen. She continues to report mild to moderate analgesia on her current regime of hydrocodone-acetaminophen 10-325 mg QID as needed with no noted side effects except occasional constipation for which she takes Colace, increases dietary fiber and fluid intake. Denies any recent cough, cold, infection, fever or other significant changes in medical history since last office visit. Patient continues to endorse lower back pain pain that radiates to her lumbar and sacral areas, as well into her right lateral hip and into right groin. Her lumbar and left buttock incisions well healed s/p SCS implant removal. She completed cervical, thoracic and lumbar spine MRIs at [facility], reports were reviewed with patient today and are noted below. Patient denies any bladder or bowel incontinence or saddle anesthesia. We will proceed with right hip evaluation. COUNTS INCLUDE 234 BEDS AT THE [facility] Medical History Spinal cord stimulator status Bipolar 1 disorder, depressed Broken humerus Surgical History S/P ORIF (open reduction internal fixation) fracture Right humeral fracture H/O: hysterectomy H/O laminectomy Social History Patient Tobacco Use Status: Never used Tobacco Review of Systems Const All systems reviewed & are unremarkable except as noted in HPI and below Physical Exam General: Appears afebrile. Alert and oriented. Mood and affect appropriate. Follows and participates in conversation appropriately. Respiratory effort is unlabored. No cough. Able to transition from sit to stand unassisted. Ambulates with bilaterally normal heel strike and toe off. Back/Spine/Pelvis Other: Limited lumbar ROM with extension and flexion reproducing moderate pain. Demonstrates 5/5 left and 4/5 right due to pain strength of quadriceps bilaterally as well as flexion/dorsiflexion of bilateral feet against resistance. 2+ pedal pulses bilaterally. +2 patellar and achilles reflexes bilaterally. Facet loading test positive bilaterally. Moderate right groin pain with I/E right hip rotations. Cervical Spine: cervical ROM normal, cervical muscular tenderness, pain with cervical ROM and No Cervical spine tenderness Thoracic/Lumbar Spine: thoracic and lumbar spine normal to inspection, Thoracic/lumbar spine scar(s), Lasegue's sign negative, straight leg raise negative bilaterally, pain with thoraco-lumbar ROM, paraspinal muscle tenderness, thoraco-lumbar ROM limited, No thoracic spinal tenderness and lumbar spinal tenderness at L4 and at L5 Pelvis: buttock tenderness on the right Sacroiliac joints: on the right (Negative Patricks and Stinchfield) tender to palpation and on the left nontender Psych Appearance: grossly normal Mental Status: mental status grossly normal Speech and movement: Normal speech and movement present and Clear speech present Affect: normal affect Attitude: cooperative Thought process: Normal thought process present Thought content: Normal thought content present, suicidality (none), no hallucinations and No Depressive thoughts present Insight: Good insight present (Psych) Judgement: Good judgement present (Psych) Results Reviewed Results Reviewed: MR SPINE CERVICAL without CONTRAST 08/16/23 INDICATION: Postlaminectomy syndrome, not elsewhere classified. Pain for years. Bilateral hand numbness. History of fibromyalgia. TECHNIQUE: Unenhanced multiplanar, multisequence MR imaging of the cervical spine. COMPARISON: None Available. FINDINGS: Straightening of normal cervical lordosis. Mild loss of intervertebral disc space height and marginal osteophyte formation C4-C5 and C5-C6. Degenerative changes of the C1-C2 articulation and craniocervical junction otherwise of normal relationship. Cervical facet arthrosis. Prevertebral soft tissues of normal appearance. Examination through the cranial cervical junction showing it to be widely patent. Examination through the C2-C3 intervertebral level revealing facet arthrosis and uncovertebral degenerative changes. No significant central stenosis. Moderate RIGHT foraminal narrowing. Mild LEFT foraminal narrowing. Examination through the C3-C4 intervertebral level revealing facet arthrosis and uncovertebral degenerative changes. Moderate to severe bilateral foraminal narrowing. Examination through the C4-C5 intervertebral level revealing facet arthrosis with uncovertebral degenerative changes and posterior disc osteophyte. Effacement of the CSF. Mild cord flattening. No cord signal changes. Moderate RIGHT foraminal narrowing. Moderate to severe LEFT foraminal narrowing. Examination through the C5-C6 intervertebral level revealing facet arthrosis. Uncovertebral degenerative changes and posterior disc osteophyte. Effacement of ventral CSF. Mild cord flattening. No cord signal changes. Moderate RIGHT foraminal narrowing. Moderate to severe LEFT foraminal narrowing. Examination through the C6-C7 intervertebral level revealing facet arthrosis and uncovertebral degenerative changes. Small posterior disc osteophyte. No significant central stenosis. Moderate bilateral foraminal narrowing. Examination through the C7-T1 intervertebral level revealing facet arthrosis. No significant central stenosis or foraminal narrowing. IMPRESSION: Spondylotic changes and facet arthrosis. No findings of fracture or listhesis. No findings to suggest acute disc protrusion. Varying degrees of relative chronic appearing central stenosis and foraminal narrowing as detailed above. Note made of mild cord flattening of the chronic appearance at C4-C5 and C5-C6. No priors are available for comparison. MR THORACIC w + wo CONTRAST, MR SPINE LUMBAR w + wo CONTRAST 08/11/23 INDICATION: Mid to low back pain with pain and weakness in both legs. Postlaminectomy syndrome. Spondylosis with radiculopathy, lumbosacral region. TECHNIQUE: Unenhanced and enhanced multiplanar, multisequence MR imaging of the thoracic and lumbar spine. Dotarem 20 mL was administered intravenously. No contrast waste documented. COMPARISON: None. FINDINGS: The examination is slightly limited due to patient motion. MRI thoracic spine: Normal alignment is demonstrated. Vertebral heights are well maintained. Bone marrow signal is within normal limits, and no suspicious osseous lesion is identified. Prevertebral and paraspinal soft tissues are within normal limits. Thoracic cord demonstrates normal course, caliber, and signal characteristics. No epidural fluid collection or hematoma is identified. No area of abnormal enhancement is identified. There are small disc bulges at T6-7 and T8-9. No significant central canal stenosis is identified. Neural foramina are patent throughout. Visualized chest and abdomen are grossly unremarkable. MRI lumbar spine: Normal alignment is demonstrated. Vertebral heights are well maintained. Bone marrow signal is within normal limits, and no suspicious osseous lesion is identified. Conus medullaris is unremarkable. No area of abnormal enhancement is identified. Paraspinal soft tissues and visualized portions of the abdomen and pelvis are unremarkable. At L1-2 there is no significant disc herniation or protrusion. No central canal or neuroforaminal stenosis is demonstrated. At L2-3 there is no significant disc herniation or protrusion. No central canal or neuroforaminal stenosis is demonstrated. At L3-4 there is a small broad-based disc bulge as well as bilateral facet hypertrophy and thickening of the ligamentum flavum. This causes mild central canal stenosis, but no neuroforaminal narrowing. At L4-5 there is no significant disc herniation or protrusion. There is bilateral facet hypertrophy and thickening of the ligamentum flavum. This causes mild central canal stenosis, but no neuroforaminal narrowing. At L5-S1 there is no significant disc herniation or protrusion. There is bilateral facet hypertrophy. No central canal or neuroforaminal stenosis is demonstrated. IMPRESSION: 1. The examination is slightly limited due to patient motion. 2. Thoracic spine demonstrates small disc bulges at T6-7 and T8-9, but no significant central canal stenosis or nerve root compromise at any level. 3. Lumbar spine demonstrates mild central canal stenosis at L3-4 and L4-5. There is no significant neuroforaminal narrowing or nerve root compromise at any level. Assessment & Plan Assessment & Plan (1) Right hip pain: Code(s): M25.551 - Pain in right hip (2) Morbid obesity with BMI of 45.0-49.9, adult: Code(s): E66.01 - Morbid (severe) obesity due to excess calories; Z68.42 - Body mass index [BMI] 45.0-49.9, adult (3) Post-laminectomy syndrome: Code(s): M96.1 - Postlaminectomy syndrome, not elsewhere classified (4) Fibromyalgia: Code(s): M79.7 - Fibromyalgia (5) Opiate analgesic contract exists: Code(s): Z79.891 - educational speech language clinician (current) use of opiate analgesic (6) Lumbosacral spondylosis: Code(s): M47.817 - Spondylosis without myelopathy or radiculopathy, lumbosacral region Plan Patient has shown accountability for her medication regimen and the pill count was accurate. The patient reported no noted side effects. There is no evidence of misuse, abuse or diversion at this time. [employer] reviewed. Script for hydrocodone-acetaminophen 10-325 mg QID prn is sent with advanced date of 11/01/23. Will obtain right hip with pelvic view to assess degree of arthritis and degenerative changes prior to any next interventional treatments for right hip or low back pain. Patient reports right hip osteopenia per most recent Bone Scan report earlier this year. All questions and concerns have been answered patient agreed. Follow-up next week for pill count and sooner as needed. Orders: Orders XR hip RT w PEL1V Today M25.551 - Pain in right hip Medications: Refilled hydrocodone-acetaminophen 10-325 mg Partial Fill upon patient request. 1 tab PO QID PRN 120 tabs 0RF severe pain (scale score 7-10) 30 days M25.561 - Pain in right knee, M25.562 - Pain in left knee, M47.27 - Other spondylosis with radiculopathy, lumbosacral region, M96.1 - Postlaminectomy syndrome, not elsewhere classified, Z79.891 - educational speech language clinician (current) use of opiate analgesic Coding Level of Care Code Est Pt Level 4 (66696) Diagnoses Right hip pain M25.551 Morbid obesity with BMI of 45.0-49.9, adult E66.01; Z68.42 Post-laminectomy syndrome M96.1 Fibromyalgia M79.7 Opiate analgesic contract exists Z79.891 Lumbosacral spondylosis M47.817
[2023-10-14 09:32] VITALS: BP 162/71; PULSE 106; O2SAT 95; BMI 46.1
== END 2023-10-14 09:52 | disposition home or self-care (01) ==
PROVIDERS: PCP Internal Medicine; Visit Provider Nurse Practitioner Family
DX: M25.551 Pain in right hip (principal); E66.01 Morbid (severe) obesity due to excess calories; Z68.42 Body mass index [BMI] 45.0-49.9, adult; Z79.891 Long term (current) use of opiate analgesic; M96.1 Postlaminectomy syndrome, not elsewhere classified; M79.7 Fibromyalgia; M47.817 Spondylosis without myelopathy or radiculopathy, lumbosacral region
CPT/HCPCS: 99214

== ENCOUNTER → 2023-10-14 09:16 | Outpatient (BNVA) | payer OTHER, SELFPAY | PROVIDERS: PCP Internal Medicine; Visit Provider Nurse Practitioner Family | DX: Z51.81 Encounter for therapeutic drug level monitoring (principal); F11.20 Opioid dependence, uncomplicated; M25.551 Pain in right hip; M96.1 Postlaminectomy syndrome, not elsewhere classified; M79.7 Fibromyalgia; M47.817 Spondylosis without myelopathy or radiculopathy, lumbosacral region; E66.01 Morbid (severe) obesity due to excess calories; Z79.891 Long term (current) use of opiate analgesic; Z68.42 Body mass index [BMI] 45.0-49.9, adult | CPT/HCPCS: 99212 ==

== ENCOUNTER 2023-11-18 09:43 | Outpatient (AMB) | payer OTHER, SELFPAY ==
--- NOTE | 2023-11-18 09:44 | A.OFFVIS_ITS ---
Intake Vital Signs 11/18/23 09:52 Height 5 ft 7 in Weight 300 lb 8 oz BMI 47.1 BP 167/73 H Blood Pressure Location Rt brachial Position Sitting Pulse 104 H Pulse Source Pulse Oximeter Pulse Oximetry (%) 98 Oxygen Delivery Method Room Air Intake Visit Reasons: PILL COUNT/confirmed Intake Note: Cris comes in today for a pill count to hydrocodone-acetaminophen, patient should have 52 tablets and presents with 61 tablets which she last took today 11/18/23 at 8am. Pain today 01/01 Patient also resigned updated opioid contract in office today, copy of signed contract was provided to patient. Supervising Editor News Reel Required: No Accompanied by: Self / Same As Patient Allergies No Known Allergies Allergy (Verified 11/18/23 09:54) HPI HPI Comments History of Present Illness Details Patient presents today for a pill count. Patient is supposed to have #52 Vicodin pills and presents with #61 pills. This demonstrates a responsible attitude in regards to her medication regimen. She continues to report mild to moderate analgesia on her current regime of hydrocodone-acetaminophen 10-325 mg QID as needed with no noted side effects except occasional constipation for which she takes Colace, fluids and fiber intake. She requests refill for Colace. Denies any recent cough, cold, infection, fever or other significant changes in medical history since last office visit. Patient has upcoming neurosurgical evaluation by Dr. Mackenzie for low back and neck pain for surgical candidacy. [facility] Medical History Spinal cord stimulator status Bipolar 1 disorder, depressed Broken humerus Surgical History S/P ORIF (open reduction internal fixation) fracture Right humeral fracture H/O: hysterectomy H/O laminectomy Social History Patient Tobacco Use Status: Never used Tobacco Review of Systems Const All systems reviewed & are unremarkable except as noted in HPI and below Physical Exam Vital Signs: Last Vital Signs Pulse 104 H 11/18/23 09:52 BP 167/73 H 11/18/23 09:52 Pulse Ox 98 11/18/23 09:52 Oxygen Delivery Method Room Air 11/18/23 09:52 BMI result Body Mass Index 47.1 General: Appears afebrile. Alert and oriented. Mood and affect appropriate. Follows and participates in conversation appropriately. Respiratory effort is unlabored. No cough. Able to transition from sit to stand unassisted. Ambulates with bilaterally normal heel strike and toe off. Back/Spine/Pelvis Other: Limited cervical and lumbar ROM with extension and flexion reproducing moderate pain. Cervical Spine: cervical ROM normal, pain with cervical ROM and No Cervical spine tenderness Thoracic/Lumbar Spine: thoracic and lumbar spine normal to inspection, Thoracic/lumbar spine scar(s), Lasegue's sign negative, straight leg raise negative bilaterally, pain with thoraco-lumbar ROM, paraspinal muscle tenderness, thoraco-lumbar ROM limited, No thoracic spinal tenderness and lumbar spinal tenderness at L4 and at L5 Pelvis: buttock tenderness on the right Sacroiliac joints: on the right (Negative Patricks and Stinchfield) tender to palpation and on the left nontender Psych Appearance: grossly normal Mental Status: mental status grossly normal Speech and movement: Normal speech and movement present Affect: normal affect Attitude: cooperative Thought process: Normal thought process present Thought content: Normal thought content present, suicidality (none), no hallucinations and No Depressive thoughts present Insight: Good insight present (Psych) Judgement: Good judgement present (Psych) Results Reviewed Results Reviewed: MR SPINE CERVICAL without CONTRAST 08/16/23 INDICATION: Postlaminectomy syndrome, not elsewhere classified. Pain for years. Bilateral hand numbness. History of fibromyalgia. TECHNIQUE: Unenhanced multiplanar, multisequence MR imaging of the cervical spine. COMPARISON: None Available. FINDINGS: Straightening of normal cervical lordosis. Mild loss of intervertebral disc space height and marginal osteophyte formation C4-C5 and C5-C6. Degenerative changes of the C1-C2 articulation and craniocervical junction otherwise of normal relationship. Cervical facet arthrosis. Prevertebral soft tissues of normal appearance. Examination through the cranial cervical junction showing it to be widely patent. Examination through the C2-C3 intervertebral level revealing facet arthrosis and uncovertebral degenerative changes. No significant central stenosis. Moderate RIGHT foraminal narrowing. Mild LEFT foraminal narrowing. Examination through the C3-C4 intervertebral level revealing facet arthrosis and uncovertebral degenerative changes. Moderate to severe bilateral foraminal narrowing. Examination through the C4-C5 intervertebral level revealing facet arthrosis with uncovertebral degenerative changes and posterior disc osteophyte. Effacement of the CSF. Mild cord flattening. No cord signal changes. Moderate RIGHT foraminal narrowing. Moderate to severe LEFT foraminal narrowing. Examination through the C5-C6 intervertebral level revealing facet arthrosis. Uncovertebral degenerative changes and posterior disc osteophyte. Effacement of ventral CSF. Mild cord flattening. No cord signal changes. Moderate RIGHT foraminal narrowing. Moderate to severe LEFT foraminal narrowing. Examination through the C6-C7 intervertebral level revealing facet arthrosis and uncovertebral degenerative changes. Small posterior disc osteophyte. No significant central stenosis. Moderate bilateral foraminal narrowing. Examination through the C7-T1 intervertebral level revealing facet arthrosis. No significant central stenosis or foraminal narrowing. IMPRESSION: Spondylotic changes and facet arthrosis. No findings of fracture or listhesis. No findings to suggest acute disc protrusion. Varying degrees of relative chronic appearing central stenosis and foraminal narrowing as detailed above. Note made of mild cord flattening of the chronic appearance at C4-C5 and C5-C6. No priors are available for comparison. MR THORACIC w + wo CONTRAST, MR SPINE LUMBAR w + wo CONTRAST 08/11/23 INDICATION: Mid to low back pain with pain and weakness in both legs. Postlaminectomy syndrome. Spondylosis with radiculopathy, lumbosacral region. TECHNIQUE: Unenhanced and enhanced multiplanar, multisequence MR imaging of the thoracic and lumbar spine. Dotarem 20 mL was administered intravenously. No contrast waste documented. COMPARISON: None. FINDINGS: The examination is slightly limited due to patient motion. MRI thoracic spine: Normal alignment is demonstrated. Vertebral heights are well maintained. Bone marrow signal is within normal limits, and no suspicious osseous lesion is identified. Prevertebral and paraspinal soft tissues are within normal limits. Thoracic cord demonstrates normal course, caliber, and signal characteristics. No epidural fluid collection or hematoma is identified. No area of abnormal enhancement is identified. There are small disc bulges at T6-7 and T8-9. No significant central canal stenosis is identified. Neural foramina are patent throughout. Visualized chest and abdomen are grossly unremarkable. MRI lumbar spine: Normal alignment is demonstrated. Vertebral heights are well maintained. Bone marrow signal is within normal limits, and no suspicious osseous lesion is identified. Conus medullaris is unremarkable. No area of abnormal enhancement is identified. Paraspinal soft tissues and visualized portions of the abdomen and pelvis are unremarkable. At L1-2 there is no significant disc herniation or protrusion. No central canal or neuroforaminal stenosis is demonstrated. At L2-3 there is no significant disc herniation or protrusion. No central canal or neuroforaminal stenosis is demonstrated. At L3-4 there is a small broad-based disc bulge as well as bilateral facet hypertrophy and thickening of the ligamentum flavum. This causes mild central canal stenosis, but no neuroforaminal narrowing. At L4-5 there is no significant disc herniation or protrusion. There is bilateral facet hypertrophy and thickening of the ligamentum flavum. This causes mild central canal stenosis, but no neuroforaminal narrowing. At L5-S1 there is no significant disc herniation or protrusion. There is bilateral facet hypertrophy. No central canal or neuroforaminal stenosis is demonstrated. IMPRESSION: 1. The examination is slightly limited due to patient motion. 2. Thoracic spine demonstrates small disc bulges at T6-7 and T8-9, but no significant central canal stenosis or nerve root compromise at any level. 3. Lumbar spine demonstrates mild central canal stenosis at L3-4 and L4-5. There is no significant neuroforaminal narrowing or nerve root compromise at any level. Assessment & Plan Assessment & Plan (1) Morbid obesity with BMI of 45.0-49.9, adult: Code(s): E66.01 - Morbid (severe) obesity due to excess calories; Z68.42 - Body mass index [BMI] 45.0-49.9, adult (2) Post-laminectomy syndrome: Code(s): M96.1 - Postlaminectomy syndrome, not elsewhere classified (3) Fibromyalgia: Code(s): M79.7 - Fibromyalgia (4) Opiate analgesic contract exists: Code(s): Z79.891 - termite control representative (current) use of opiate analgesic (5) Lumbosacral spondylosis: Code(s): M47.817 - Spondylosis without myelopathy or radiculopathy, lumbosacral region Plan Patient has shown accountability for her medication regimen and the pill count was accurate. The patient reported no noted side effects. There is no evidence of misuse, abuse or diversion at this time. [employer] reviewed. Script for hydrocodone-acetaminophen 10-325 mg QID prn is sent with advanced date of 12/03/23. Patient has upcoming neurosurgical evaluation with Dr. Mackenzie at [facility] to evaluate surgical candidacy for neck or back pain given recent MRI findings. All questions and concerns have been answered patient agreed. Follow-up next week for pill count and sooner as needed. Medications: Refilled docusate sodium 100 mg PO BID 30 days 60 caps 3RF constipation K59.03 - Drug induced constipation, Z79.891 - termite control representative (current) use of opiate analgesic hydrocodone-acetaminophen 10-325 mg Partial Fill upon patient request. 1 tab PO QID 30 days PRN 120 tabs 0RF severe pain (scale score 7-10) M25.561 - Pain in right knee, M25.562 - Pain in left knee, M47.27 - Other spondylosis with radiculopathy, lumbosacral region, M96.1 - Postlaminectomy syndrome, not elsewhere classified, Z79.891 - prison (current) use of opiate analgesic Coding Level of Care Code Est Pt Level 4 (10196) Diagnoses Morbid obesity with BMI of 45.0-49.9, adult E66.01; Z68.42 Post-laminectomy syndrome M96.1 Fibromyalgia M79.7 Opiate analgesic contract exists Z79.891 Lumbosacral spondylosis M47.817
[2023-11-18 09:52] VITALS: BP 167/73; PULSE 104; O2SAT 98; BMI 47.1
== END 2023-11-18 10:03 | disposition home or self-care (01) ==
PROVIDERS: PCP Internal Medicine; Visit Provider Nurse Practitioner Family
DX: M96.1 Postlaminectomy syndrome, not elsewhere classified (principal); M79.7 Fibromyalgia; M47.817 Spondylosis without myelopathy or radiculopathy, lumbosacral region; Z79.891 Long term (current) use of opiate analgesic; E66.01 Morbid (severe) obesity due to excess calories; Z68.42 Body mass index [BMI] 45.0-49.9, adult
CPT/HCPCS: 99214

== ENCOUNTER → 2023-11-18 09:43 | Outpatient (BNVA) | payer OTHER, SELFPAY | PROVIDERS: PCP Internal Medicine; Visit Provider Nurse Practitioner Family | DX: Z51.81 Encounter for therapeutic drug level monitoring (principal); M96.1 Postlaminectomy syndrome, not elsewhere classified; M79.7 Fibromyalgia; M47.817 Spondylosis without myelopathy or radiculopathy, lumbosacral region; E66.01 Morbid (severe) obesity due to excess calories; Z79.891 Long term (current) use of opiate analgesic; Z68.42 Body mass index [BMI] 45.0-49.9, adult | CPT/HCPCS: 99212 ==

== ENCOUNTER 2023-12-16 10:16 | Outpatient (AMB) | payer OTHER, SELFPAY ==
--- NOTE | 2023-12-16 10:23 | A.OFFVIS_ITS ---
Intake Vital Signs 12/16/23 10:32 Height 5 ft 7 in Weight 300 lb 8 oz BMI 47.1 BP 164/74 H Blood Pressure Location Rt brachial Position Sitting Pulse 99 Pulse Source Pulse Oximeter Pulse Oximetry (%) 97 Oxygen Delivery Method Room Air Intake Visit Reasons: Pill Count/confirmed Intake Note: Cris comes in today for a pill count to hydrocodone-acetaminophen, patient should have 68 tablets and presents with 82 tablets which she last took today 12/16/23 at 8am. Pain today 6.5/10 Allergies No Known Allergies Allergy (Verified 12/16/23 10:33) HPI HPI Comments History of Present Illness Details Patient presents today for a pill count. Patient is supposed to have #68 Vicodin pills and presents with #82 pills. This demonstrates a responsible attitude in regards to her medication regimen. Patient reports mild to moderate analgesia on her current regime of hydrocodone- acetaminophen 10-325 mg QID as needed with no noted side effects except occasional constipation for which she takes Colace and adequate hydration. Denies any recent cough, cold, infection, fever or other significant changes in medical history since last office visit. Patient is awaiting neurosurgical evaluation by Dr. Mackenzie for low back and neck pain for surgical candidacy. She also has ENT evaluation for thyroid nodule. Reports fibromyalgia flare ups, mostly at night but also during the day and with cold weather changes. She is interested to restart Lyrica but would like to think about it. COUNT INCLUDES THE [facility] Medical History Spinal cord stimulator status Bipolar 1 disorder, depressed Broken humerus Surgical History S/P ORIF (open reduction internal fixation) fracture Right humeral fracture H/O: hysterectomy H/O laminectomy Social History Patient Tobacco Use Status: Never used Tobacco Review of Systems Const All systems reviewed & are unremarkable except as noted in HPI and below Physical Exam General: Appears afebrile. Alert and oriented. Mood and affect appropriate. Follows and participates in conversation appropriately. Respiratory effort is unlabored. No cough. Able to transition from sit to stand unassisted. Ambulates with bilaterally normal heel strike and toe off. Back/Spine/Pelvis Other: Limited cervical and lumbar ROM with extension and flexion reproducing moderate pain. Cervical Spine: cervical ROM normal, pain with cervical ROM and No Cervical spine tenderness Thoracic/Lumbar Spine: thoracic and lumbar spine normal to inspection, Thoracic/lumbar spine scar(s), Lasegue's sign negative, straight leg raise negative bilaterally, pain with thoraco-lumbar ROM, paraspinal muscle tenderness, thoraco-lumbar ROM limited, No thoracic spinal tenderness and lumbar spinal tenderness at L4 and at L5 Pelvis: buttock tenderness on the right Sacroiliac joints: on the right (+Hema's) tender to palpation and on the left nontender Extrem General: Yes capillary refill normal, Yes no clubbing, cyanosis or edema and Yes no calf tenderness Psych Appearance: grossly normal Mental Status: mental status grossly normal Speech and movement: Normal speech and movement present Affect: normal affect Attitude: cooperative Thought process: Normal thought process present Thought content: Normal thought content present, suicidality (none), no hallucinations and No Depressive thoughts present Insight: Good insight present (Psych) Judgement: Good judgement present (Psych) Results Reviewed Results Reviewed: MR SPINE CERVICAL without CONTRAST 08/16/23 INDICATION: Postlaminectomy syndrome, not elsewhere classified. Pain for years. Bilateral hand numbness. History of fibromyalgia. TECHNIQUE: Unenhanced multiplanar, multisequence MR imaging of the cervical spine. COMPARISON: None Available. FINDINGS: Straightening of normal cervical lordosis. Mild loss of intervertebral disc space height and marginal osteophyte formation C4-C5 and C5-C6. Degenerative changes of the C1-C2 articulation and craniocervical junction otherwise of normal relationship. Cervical facet arthrosis. Prevertebral soft tissues of normal appearance. Examination through the cranial cervical junction showing it to be widely patent. Examination through the C2-C3 intervertebral level revealing facet arthrosis and uncovertebral degenerative changes. No significant central stenosis. Moderate RIGHT foraminal narrowing. Mild LEFT foraminal narrowing. Examination through the C3-C4 intervertebral level revealing facet arthrosis and uncovertebral degenerative changes. Moderate to severe bilateral foraminal narrowing. Examination through the C4-C5 intervertebral level revealing facet arthrosis with uncovertebral degenerative changes and posterior disc osteophyte. Effacement of the CSF. Mild cord flattening. No cord signal changes. Moderate RIGHT foraminal narrowing. Moderate to severe LEFT foraminal narrowing. Examination through the C5-C6 intervertebral level revealing facet arthrosis. Uncovertebral degenerative changes and posterior disc osteophyte. Effacement of ventral CSF. Mild cord flattening. No cord signal changes. Moderate RIGHT foraminal narrowing. Moderate to severe LEFT foraminal narrowing. Examination through the C6-C7 intervertebral level revealing facet arthrosis and uncovertebral degenerative changes. Small posterior disc osteophyte. No significant central stenosis. Moderate bilateral foraminal narrowing. Examination through the C7-T1 intervertebral level revealing facet arthrosis. No significant central stenosis or foraminal narrowing. IMPRESSION: Spondylotic changes and facet arthrosis. No findings of fracture or listhesis. No findings to suggest acute disc protrusion. Varying degrees of relative chronic appearing central stenosis and foraminal narrowing as detailed above. Note made of mild cord flattening of the chronic appearance at C4-C5 and C5-C6. No priors are available for comparison. MR THORACIC w + wo CONTRAST, MR SPINE LUMBAR w + wo CONTRAST 08/11/23 INDICATION: Mid to low back pain with pain and weakness in both legs. Postlaminectomy syndrome. Spondylosis with radiculopathy, lumbosacral region. TECHNIQUE: Unenhanced and enhanced multiplanar, multisequence MR imaging of the thoracic and lumbar spine. Dotarem 20 mL was administered intravenously. No contrast waste documented. COMPARISON: None. FINDINGS: The examination is slightly limited due to patient motion. MRI thoracic spine: Normal alignment is demonstrated. Vertebral heights are well maintained. Bone marrow signal is within normal limits, and no suspicious osseous lesion is identified. Prevertebral and paraspinal soft tissues are within normal limits. Thoracic cord demonstrates normal course, caliber, and signal characteristics. No epidural fluid collection or hematoma is identified. No area of abnormal enhancement is identified. There are small disc bulges at T6-7 and T8-9. No significant central canal stenosis is identified. Neural foramina are patent throughout. Visualized chest and abdomen are grossly unremarkable. MRI lumbar spine: Normal alignment is demonstrated. Vertebral heights are well maintained. Bone marrow signal is within normal limits, and no suspicious osseous lesion is identified. Conus medullaris is unremarkable. No area of abnormal enhancement is identified. Paraspinal soft tissues and visualized portions of the abdomen and pelvis are unremarkable. At L1-2 there is no significant disc herniation or protrusion. No central canal or neuroforaminal stenosis is demonstrated. At L2-3 there is no significant disc herniation or protrusion. No central canal or neuroforaminal stenosis is demonstrated. At L3-4 there is a small broad-based disc bulge as well as bilateral facet hypertrophy and thickening of the ligamentum flavum. This causes mild central canal stenosis, but no neuroforaminal narrowing. At L4-5 there is no significant disc herniation or protrusion. There is bilateral facet hypertrophy and thickening of the ligamentum flavum. This causes mild central canal stenosis, but no neuroforaminal narrowing. At L5-S1 there is no significant disc herniation or protrusion. There is bilateral facet hypertrophy. No central canal or neuroforaminal stenosis is demonstrated. IMPRESSION: 1. The examination is slightly limited due to patient motion. 2. Thoracic spine demonstrates small disc bulges at T6-7 and T8-9, but no significant central canal stenosis or nerve root compromise at any level. 3. Lumbar spine demonstrates mild central canal stenosis at L3-4 and L4-5. There is no significant neuroforaminal narrowing or nerve root compromise at any level. 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 The patient reported no noted side effects. There is no evidence of misuse, abuse or diversion at this time. [employer] reviewed. Script for hydrocodone-acetaminophen 10-325 mg QID prn is sent with advanced date of 01/03/24. Script provided for pregabalin (Lyrica), side effects and precautions reviewed with patient. Patient has pending neurosurgical evaluation with Dr. Mackenzie at [facility] to evaluate surgical candidacy for neck or back pain and ENT evaluation for thyroid nodule. All questions and concerns have been answered patient agreed. Follow-up next week for pill count and sooner as needed. Medications: New pregabalin 50 mg PO BID 30 days 60 caps 0RF pain M79.7 - Fibromyalgia, M96.1 - Postlaminectomy syndrome, not elsewhere classified Refilled hydrocodone-acetaminophen 10-325 mg Partial Fill upon patient request. 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
[2023-12-16 10:32] VITALS: BP 164/74; PULSE 99; O2SAT 97; BMI 47.1
== END 2023-12-16 10:55 | disposition home or self-care (01) ==
PROVIDERS: PCP Internal Medicine; Visit Provider Nurse Practitioner Family
DX: M96.1 Postlaminectomy syndrome, not elsewhere classified (principal); M79.7 Fibromyalgia; Z79.891 Long term (current) use of opiate analgesic; M47.817 Spondylosis without myelopathy or radiculopathy, lumbosacral region; M54.50 Low back pain, unspecified; G89.29 Other chronic pain
CPT/HCPCS: 99214

== ENCOUNTER → 2023-12-16 10:16 | Outpatient (BNVA) | payer OTHER, SELFPAY | PROVIDERS: PCP Internal Medicine; Visit Provider Nurse Practitioner Family | DX: Z51.81 Encounter for therapeutic drug level monitoring (principal); M96.1 Postlaminectomy syndrome, not elsewhere classified; M79.7 Fibromyalgia; M47.817 Spondylosis without myelopathy or radiculopathy, lumbosacral region; M54.50 Low back pain, unspecified; G89.29 Other chronic pain | CPT/HCPCS: 99212 ==

== ENCOUNTER 2024-01-20 10:18 | Outpatient (AMB) | payer OTHER, SELFPAY ==
--- NOTE | 2024-01-20 10:20 | A.OFFVIS_ITS ---
Intake Vital Signs 01/20/24 10:28 Height 5 ft 7 in Weight 301 lb 6 oz BMI 47.2 BP 142/70 H Blood Pressure Location Rt brachial Position Sitting Pulse 107 H Pulse Source Pulse Oximeter Pulse Oximetry (%) 98 Oxygen Delivery Method Room Air Intake Visit Reasons: Pill Count Intake Note: Cris comes in today for a pill count to hydrocoone-acetaminophen, patient should have 52 tablets and presents with 62 tabs which she last today 01/20/24 at 8am. Pain today 02/01. 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 Patient is supposed to have #52 Vicodin pills and presents with #62 pills. This demonstrates a responsible attitude in regards to her medication regimen. Patient reports adequate analgesia on her current regime of hydrocodone- acetaminophen 10-325 mg QID as needed with no noted side effects. Denies any recent cough, cold, infection, fever or other significant changes in medical history since last office visit. Patient is awaiting neurosurgical evaluation by Dr. Mackenzie for low back and neck pain for surgical candidacy. She also underwent biopsy for thyroid nodule on 01/04/24 with pending results [facility]. Denies any recent cough, cold, infection, fever, any significant changes in her medical history, medications or recent hospitalizations. [facility] Medical History Spinal cord stimulator status Bipolar 1 disorder, depressed Broken humerus Surgical History S/P ORIF (open reduction internal fixation) fracture Right humeral fracture H/O: hysterectomy H/O laminectomy Social History Patient Tobacco Use Status: Never used Tobacco Review of Systems Const All systems reviewed & are unremarkable except as noted in HPI and below Physical Exam General: Appears afebrile. Alert and oriented. Mood and affect appropriate. Follows and participates in conversation appropriately. Respiratory effort is unlabored. No cough. Able to transition from sit to stand unassisted. Ambulates with bilaterally normal heel strike and toe off. Back/Spine/Pelvis Other: Limited cervical and lumbar ROM with extension and flexion reproducing moderate pain. Mild TTP to bilateral GTB. Mild to moderate groin pain with I/E hip rotations bilaterally. Cervical Spine: cervical ROM normal, cervical muscular tenderness, pain with cervical ROM, No Cervical spine tenderness and No step off deformity Thoracic/Lumbar Spine: thoracic and lumbar spine normal to inspection, Thoracic/lumbar spine scar(s), Lasegue's sign negative, straight leg raise negative bilaterally, pain with thoraco-lumbar ROM, paraspinal muscle tenderness, thoraco-lumbar ROM limited, No thoracic spinal tenderness and lumbar spinal tenderness at L4 and at L5 Pelvis: buttock tenderness on the right Sacroiliac joints: bilaterally (Hema's test reproduces groin and lateral hip bilaterally.) tender to palpation Extrem General: Yes capillary refill normal, Yes no clubbing, cyanosis or edema and Yes no calf tenderness Psych Appearance: grossly normal Mental Status: mental status grossly normal Speech and movement: Normal speech and movement present Affect: normal affect Attitude: cooperative Thought process: Normal thought process present Thought content: Normal thought content present, suicidality (none), no hallucinations and No Depressive thoughts present Insight: Good insight present (Psych) Judgement: Good judgement present (Psych) Assessment & Plan Assessment & Plan (1) Post-laminectomy syndrome: Code(s): M96.1 - Postlaminectomy syndrome, not elsewhere classified (2) Fibromyalgia: Code(s): M79.7 - Fibromyalgia (3) Opiate analgesic contract exists: Code(s): Z79.891 - assisted (current) use of opiate analgesic (4) Lumbosacral spondylosis: Code(s): M47.817 - Spondylosis without myelopathy or radiculopathy, lumbosacral region (5) Chronic low back pain: Code(s): M54.50 - Low back pain, unspecified; G89.29 - Other chronic pain Plan Patient has shown accountability for her medication regimen and the pill count was accurate. The patient reported no noted side effects. There is no evidence of misuse, abuse or diversion at this time. [employer] reviewed. Script for hydrocodone-acetaminophen 10-325 mg QID prn is sent with advanced date of 02/04/24. Continue pregabalin, monitor side effects and precautions reviewed with patient. Patient has pending neurosurgical evaluation with Dr. Mackenzie at [facility] to evaluate surgical candidacy for neck or back pain. She recent underwent thyroid nodule biopsy and has follow up visit to discuss results. All questions and concerns have been answered patient agreed. Follow-up next week for pill count and sooner as needed. Medications: Refilled hydrocodone-acetaminophen 10-325 mg Partial Fill upon patient request. 1 tab PO QID 30 days PRN 120 tabs 0RF severe pain (scale score 7-10) M25.561 - Pain in right knee, M25.562 - Pain in left knee, M47.27 - Other spondylosis with radiculopathy, lumbosacral region, M96.1 - Postlaminectomy syndrome, not elsewhere classified, Z79.891 - assisted (current) use of opiate analgesic Coding Level of Care Code Est Pt Level 4 (48888) Diagnoses Post-laminectomy syndrome M96.1 Fibromyalgia M79.7 Opiate analgesic contract exists Z79.891 Lumbosacral spondylosis M47.817 Chronic low back pain M54.50; G89.29
[2024-01-20 10:28] VITALS: BP 142/70; PULSE 107; O2SAT 98; BMI 47.2
== END 2024-01-20 10:39 | disposition home or self-care (01) ==
PROVIDERS: PCP Internal Medicine; Visit Provider Nurse Practitioner Family
DX: G89.29 Other chronic pain (principal); M96.1 Postlaminectomy syndrome, not elsewhere classified; M79.7 Fibromyalgia; Z79.891 Long term (current) use of opiate analgesic; M47.817 Spondylosis without myelopathy or radiculopathy, lumbosacral region; M54.50 Low back pain, unspecified
CPT/HCPCS: 99214

== ENCOUNTER → 2024-01-20 10:18 | Outpatient (BNVA) | payer OTHER, SELFPAY | PROVIDERS: PCP Internal Medicine; Visit Provider Nurse Practitioner Family | DX: Z51.81 Encounter for therapeutic drug level monitoring (principal); M96.1 Postlaminectomy syndrome, not elsewhere classified; M79.7 Fibromyalgia; M47.817 Spondylosis without myelopathy or radiculopathy, lumbosacral region; M54.50 Low back pain, unspecified; G89.29 Other chronic pain; Z79.891 Long term (current) use of opiate analgesic | CPT/HCPCS: 99212 ==

== ENCOUNTER 2024-02-22 10:00 | Outpatient (AMB) | payer OTHER, SELFPAY ==
--- NOTE | 2024-02-22 10:03 | MHC.OFFVIS ---
Vital Signs 02/22/24 10:19 Height 5 ft 7 in Weight 293 lb 8 oz BMI 46.0 BP 132/81 Blood Pressure Location Rt brachial Position Sitting Pulse 98 Pulse Source Pulse Oximeter Pulse Oximetry (%) 99 Oxygen Delivery Method Room Air Intake Visit Reasons: Pill Count Intake Note: Cris comes in today for a pill count to hydrocodone-acetaminophen, patient should have 48 tablets and presents with 61 tablets which she last took today 02/22/24 at 8am. 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 Patient is supposed to have #48 Vicodin pills and presents with #61 pills. This demonstrates a responsible attitude in regards to her medication regimen. Patient reports adequate analgesia on her current regime of hydrocodone-acetaminophen 10-325 mg QID as needed with no noted side effects. Denies any recent cough, cold, infection, fever or other significant changes in medical history since last office visit except recent fine needle aspiration procedure with positive results for right thyroid cancer. Patient reports she has final biopsy to undergo to confirm recent findings. She has put on hold neurosurgical evaluation for low back and neck pain for surgical candidacy. [facility] Medical History Spinal cord stimulator status Bipolar 1 disorder, depressed Broken humerus Surgical History S/P ORIF (open reduction internal fixation) fracture Right humeral fracture H/O: hysterectomy H/O laminectomy Social History Patient Tobacco Use Status: Never used Tobacco Review of Systems Const All systems reviewed & are unremarkable except as noted in HPI and below Physical Exam Vital Signs: Last Vital Signs Pulse 98 02/22/24 10:19 BP 132/81 02/22/24 10:19 Pulse Ox 99 02/22/24 10:19 Oxygen Delivery Method Room Air 02/22/24 10:19 BMI result Body Mass Index 46.0 General: Appears afebrile. Alert and oriented. Mood and affect appropriate. Follows and participates in conversation appropriately. Respiratory effort is unlabored. No cough. Able to transition from sit to stand unassisted. Ambulates with bilaterally normal heel strike and toe off. Back/Spine/Pelvis Cervical Spine: cervical muscular tenderness, pain with cervical ROM and No Cervical spine tenderness Thoracic/Lumbar Spine: thoracic and lumbar spine normal to inspection, Thoracic/lumbar spine scar(s), pain with thoraco-lumbar ROM, paraspinal muscle tenderness, thoraco-lumbar ROM limited, No thoracic spinal tenderness and lumbar spinal tenderness at L4 and at L5 Pelvis: buttock tenderness on the right Sacroiliac joints: bilaterally (Hema's test reproduces groin and lateral hip bilaterally.) tender to palpation Psych Appearance: grossly normal Mental Status: mental status grossly normal Speech and movement: Normal speech and movement present Affect: normal affect Attitude: cooperative Thought process: Normal thought process present Thought content: Normal thought content present, suicidality (none), no hallucinations and No Depressive thoughts present Insight: Good insight present (Psych) Judgement: Good judgement present (Psych) Assessment & Plan Assessment & Plan (1) Polyarthralgia: Code(s): M25.50 - Pain in unspecified joint Category: Medical (2) Lumbosacral spondylosis: Code(s): M47.817 - Spondylosis without myelopathy or radiculopathy, lumbosacral region Category: Medical (3) Chronic low back pain: Code(s): M54.50 - Low back pain, unspecified; G89.29 - Other chronic pain Category: Medical (4) Post-laminectomy syndrome: Code(s): M96.1 - Postlaminectomy syndrome, not elsewhere classified Category: Medical (5) Fibromyalgia: Code(s): M79.7 - Fibromyalgia Category: Medical (6) Opiate analgesic contract exists: Code(s): 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 The patient reported no noted side effects. There is no evidence of misuse, abuse or diversion at this time. [employer] reviewed. Script for hydrocodone-acetaminophen 10-325 mg QID prn is sent with advanced date of 03/07/24. Continue pregabalin, monitor side effects and precautions reviewed with patient. Script sent for Ketoprofen 10% gel per patient's request. Patient is aware to stop Diclofenac gel. All questions and concerns have been answered patient agreed. Follow-up next week for pill count and sooner as needed. Medications: New ketoprofen 10% 1 appl topical TID PRN 30 grams 3RF pain G89.29 - Other chronic pain, M25.50 - Pain in unspecified joint, M47.817 - Spondylosis without myelopathy or radiculopathy, lumbosacral region, M54.50 - Low back pain, unspecified Refilled hydrocodone-acetaminophen 10-325 mg Partial Fill upon patient request. 1 tab PO QID 30 days PRN 120 tabs 0RF severe pain (scale score 7-10) M25.561 - Pain in right knee, M25.562 - Pain in left knee, M47.27 - Other spondylosis with radiculopathy, lumbosacral region, M96.1 - Postlaminectomy syndrome, not elsewhere classified, Z79.891 - residential (current) use of opiate analgesic Discontinued diclofenac sodium 1% (Voltaren Arthritis Pain) Apply 1-3 grams (pumps) to the affected area 3-4 times daily. Discontinued Reason: Doctor's Order 4 grams topical QID 180 grams 3RF pain M25.561 - Pain in right knee, M25.562 - Pain in left knee, M47.27 - Other spondylosis with radiculopathy, lumbosacral region, M79.7 - Fibromyalgia, M96.1 - Postlaminectomy syndrome, not elsewhere classified, Z87.81 - Personal history of (healed) traumatic fracture, Z98.890 - Other specified postprocedural states Coding Level of Care Code Est Pt Level 4 (38035) Diagnoses Polyarthralgia M25.50 Lumbosacral spondylosis M47.817 Chronic low back pain M54.50; G89.29 Post-laminectomy syndrome M96.1 Fibromyalgia M79.7 Opiate analgesic contract exists Z79.891
[2024-02-22 10:19] VITALS: BP 132/81; PULSE 98; O2SAT 99; BMI 46.0
== END 2024-02-22 10:39 | disposition home or self-care (01) ==
PROVIDERS: PCP Internal Medicine; Visit Provider Nurse Practitioner Family
DX: M25.50 Pain in unspecified joint (principal); M47.817 Spondylosis without myelopathy or radiculopathy, lumbosacral region; M54.50 Low back pain, unspecified; G89.29 Other chronic pain; M96.1 Postlaminectomy syndrome, not elsewhere classified; M79.7 Fibromyalgia; Z79.891 Long term (current) use of opiate analgesic
CPT/HCPCS: 99214

== ENCOUNTER → 2024-02-22 10:00 | Outpatient (BNVA) | payer OTHER, SELFPAY | PROVIDERS: PCP Internal Medicine; Visit Provider Nurse Practitioner Family | DX: Z51.81 Encounter for therapeutic drug level monitoring (principal); F11.20 Opioid dependence, uncomplicated; M25.50 Pain in unspecified joint; M47.817 Spondylosis without myelopathy or radiculopathy, lumbosacral region; M54.50 Low back pain, unspecified; M96.1 Postlaminectomy syndrome, not elsewhere classified; M79.7 Fibromyalgia; G89.29 Other chronic pain; Z79.891 Long term (current) use of opiate analgesic | CPT/HCPCS: 99212 ==

== ENCOUNTER 2024-03-28 10:14 | Outpatient (AMB) | payer OTHER, SELFPAY ==
--- NOTE | 2024-03-28 10:16 | A.OFFVIS_ITS ---
Vital Signs 03/28/24 10:22 Height 5 ft 7 in Weight 296 lb 8 oz BMI 46.4 BP 142/67 H Blood Pressure Location Rt brachial Position Sitting Pulse 107 H Pulse Source Pulse Oximeter Pulse Oximetry (%) 98 Oxygen Delivery Method Room Air Intake Visit Reasons: PILL COUNT Intake Note: Cris comes in today for a pill count to hydrocodone-acetaminophen, patient should have 36 tablets and presents with 57 tablets which she last took today 03/28/24 at 8am. Pain today 02/01 Sr. Media Manager Required: No Accompanied by: Self / Same As Patient Allergies No Known Allergies Allergy (Verified 03/28/24 10:23) HPI Comments Details: Patient presents today for a pill count. Patient is supposed to have #36 Vicodin pills and presents with #57 pills. This demonstrates a responsible attitude in regards to her medication regimen. Patient reports adequate analgesia on her current regime of hydrocodone- acetaminophen 10-325 mg QID as needed with no noted side effects. Denies any recent cough, cold, infection, fever or other significant changes in medical history since last office visit. Patient reports she underwent repeat fine needle aspiration procedure with right thyroid cancer yesterday. She also reports ongoing neck and lower back pain with concern of tingling in both hands. Neck pain radiates into her lower arm and hand with tingling in 4th and 5th digits bilaterally. Reports difficulty with lifting, pulling, fishing, or carpenter general. Most recent cervical MRI is noted below. Denies any fever, weakness, gait imbalance, bladder or bowel dysfunction or saddle anesthesia. [facility] Medical History Spinal cord stimulator status Bipolar 1 disorder, depressed Broken humerus Surgical History S/P ORIF (open reduction internal fixation) fracture Right humeral fracture H/O: hysterectomy H/O laminectomy Social History Patient Tobacco Use Status: Never used Tobacco Review of Systems Const All systems reviewed & are unremarkable except as noted in HPI and below Physical Exam Vital Signs: Last Vital Signs Pulse 107 H 03/28/24 10:22 BP 142/67 H 03/28/24 10:22 Pulse Ox 98 03/28/24 10:22 Oxygen Delivery Method Room Air 03/28/24 10:22 BMI result Body Mass Index 46.4 General: Appears afebrile. Alert and oriented. Mood and affect appropriate. Follows and participates in conversation appropriately. Respiratory effort is unlabored. No cough. Able to transition from sit to stand unassisted. Ambulates with bilaterally normal heel strike and toe off. Neck Neck: Yes normal visual inspection, Yes no lymphadenopathy, Yes supple, No anterior neck swelling, Yes no JVD and Yes prominent dorsocervical fat pad Thyroid: other (Band-Aid dressing right anterior neck s/p FNA right thyroid biopsy 03/27/24) Back/Spine/Pelvis Cervical Spine: loss of normal cervical lordosis, cervical muscular tenderness, pain with cervical ROM and No Cervical spine tenderness Thoracic/Lumbar Spine: thoracic and lumbar spine normal to inspection, Thoracic/lumbar spine scar(s), pain with thoraco-lumbar ROM, paraspinal muscle tenderness, thoraco-lumbar ROM limited, No thoracic spinal tenderness and lumbar spinal tenderness at L4 and at L5 Pelvis: buttock tenderness on the right Sacroiliac joints: bilaterally (Hema's test reproduces groin and lateral hip bilaterally.) tender to palpation Extrem General: Yes capillary refill normal, Yes no clubbing, cyanosis or edema and Yes no calf tenderness Psych Appearance: grossly normal Mental Status: mental status grossly normal Speech and movement: Normal speech and movement present Affect: normal affect Attitude: cooperative Thought process: Normal thought process present Thought content: Normal thought content present, suicidality (none), no hallucinations and No Depressive thoughts present Insight: Good insight present (Psych) Judgement: Good judgement present (Psych) Results Reviewed Results Reviewed: MR SPINE CERVICAL without CONTRAST 08/16/23 INDICATION: Postlaminectomy syndrome, not elsewhere classified. Pain for years. Bilateral hand numbness. History of fibromyalgia. TECHNIQUE: Unenhanced multiplanar, multisequence MR imaging of the cervical spine. COMPARISON: None Available. FINDINGS: Straightening of normal cervical lordosis. Mild loss of intervertebral disc space height and marginal osteophyte formation C4-C5 and C5-C6. Degenerative changes of the C1-C2 articulation and craniocervical junction otherwise of normal relationship. Cervical facet arthrosis. Prevertebral soft tissues of normal appearance. Examination through the cranial cervical junction showing it to be widely patent. Examination through the C2-C3 intervertebral level revealing facet arthrosis and uncovertebral degenerative changes. No significant central stenosis. Moderate RIGHT foraminal narrowing. Mild LEFT foraminal narrowing. Examination through the C3-C4 intervertebral level revealing facet arthrosis and uncovertebral degenerative changes. Moderate to severe bilateral foraminal narrowing. Examination through the C4-C5 intervertebral level revealing facet arthrosis with uncovertebral degenerative changes and posterior disc osteophyte. Effacement of the CSF. Mild cord flattening. No cord signal changes. Moderate RIGHT foraminal narrowing. Moderate to severe LEFT foraminal narrowing. Examination through the C5-C6 intervertebral level revealing facet arthrosis. Uncovertebral degenerative changes and posterior disc osteophyte. Effacement of ventral CSF. Mild cord flattening. No cord signal changes. Moderate RIGHT foraminal narrowing. Moderate to severe LEFT foraminal narrowing. Examination through the C6-C7 intervertebral level revealing facet arthrosis and uncovertebral degenerative changes. Small posterior disc osteophyte. No significant central stenosis. Moderate bilateral foraminal narrowing. Examination through the C7-T1 intervertebral level revealing facet arthrosis. No significant central stenosis or foraminal narrowing. IMPRESSION: Spondylotic changes and facet arthrosis. No findings of fracture or listhesis. No findings to suggest acute disc protrusion. Varying degrees of relative chronic appearing central stenosis and foraminal narrowing as detailed above. Note made of mild cord flattening of the chronic appearance at C4-C5 and C5-C6. No priors are available for comparison. MR THORACIC w + wo CONTRAST, MR SPINE LUMBAR w + wo CONTRAST 08/11/23 INDICATION: Mid to low back pain with pain and weakness in both legs. Postlaminectomy syndrome. Spondylosis with radiculopathy, lumbosacral region. TECHNIQUE: Unenhanced and enhanced multiplanar, multisequence MR imaging of the thoracic and lumbar spine. Dotarem 20 mL was administered intravenously. No contrast waste documented. COMPARISON: None. FINDINGS: The examination is slightly limited due to patient motion. MRI thoracic spine: Normal alignment is demonstrated. Vertebral heights are well maintained. Bone marrow signal is within normal limits, and no suspicious osseous lesion is identified. Prevertebral and paraspinal soft tissues are within normal limits. Thoracic cord demonstrates normal course, caliber, and signal characteristics. No epidural fluid collection or hematoma is identified. No area of abnormal enhancement is identified. There are small disc bulges at T6-7 and T8-9. No significant central canal stenosis is identified. Neural foramina are patent throughout. Visualized chest and abdomen are grossly unremarkable. MRI lumbar spine: Normal alignment is demonstrated. Vertebral heights are well maintained. Bone marrow signal is within normal limits, and no suspicious osseous lesion is identified. Conus medullaris is unremarkable. No area of abnormal enhancement is identified. Paraspinal soft tissues and visualized portions of the abdomen and pelvis are unremarkable. At L1-2 there is no significant disc herniation or protrusion. No central canal or neuroforaminal stenosis is demonstrated. At L2-3 there is no significant disc herniation or protrusion. No central canal or neuroforaminal stenosis is demonstrated. At L3-4 there is a small broad-based disc bulge as well as bilateral facet hypertrophy and thickening of the ligamentum flavum. This causes mild central canal stenosis, but no neuroforaminal narrowing. At L4-5 there is no significant disc herniation or protrusion. There is bilateral facet hypertrophy and thickening of the ligamentum flavum. This causes mild central canal stenosis, but no neuroforaminal narrowing. At L5-S1 there is no significant disc herniation or protrusion. There is bilateral facet hypertrophy. No central canal or neuroforaminal stenosis is demonstrated. IMPRESSION: 1. The examination is slightly limited due to patient motion. 2. Thoracic spine demonstrates small disc bulges at T6-7 and T8-9, but no significant central canal stenosis or nerve root compromise at any level. 3. Lumbar spine demonstrates mild central canal stenosis at L3-4 and L4-5. There is no significant neuroforaminal narrowing or nerve root compromise at any level. Assessment & Plan Assessment & Plan (1) Lumbosacral spondylosis: Code(s): M47.817 - Spondylosis without myelopathy or radiculopathy, lumbosacral region Category: Medical (2) Post-laminectomy syndrome: Code(s): M96.1 - Postlaminectomy syndrome, not elsewhere classified Category: Medical (3) Fibromyalgia: Code(s): M79.7 - Fibromyalgia Category: Medical (4) Opiate analgesic contract exists: Code(s): Z79.891 - nursing home (current) use of opiate analgesic Category: Medical (5) Cervical radiculitis: Code(s): M54.12 - Radiculopathy, cervical region Category: Medical (6) Disc disease, degenerative, cervical: Code(s): M50.30 - Other cervical disc degeneration, unspecified cervical region Category: Medical (7) Numbness and tingling of both upper extremities: Code(s): R20.0 - Anesthesia of skin; R20.2 - Paresthesia of skin Category: Medical Plan Patient has shown accountability for her medication regimen and the pill count was accurate. The patient reported no noted side effects. There is no evidence of misuse, abuse or diversion at this time. [facility] reviewed. Script for hydrocodone-acetaminophen 10-325 mg QID prn is sent with advanced date of 04/10/24. Neurodiagnostic studies of both upper extremities to further evaluate for ulnar neuropathy, CTS and cervical radiculopathy. We also discussed interlaminar C7-T1 MARCY injection for cervical radicular symptoms after EMG/NVC is complete. All questions and concerns have been answered patient agreed. Follow-up next week for pill count and sooner as needed. Orders: Orders NE nerve conduction velocity Today M50.30 - Other cervical disc degeneration, unspecified cervical region, M54.12 - Radiculopathy, cervical region, R20.0 - Anesthesia of skin, R20.2 - Paresthesia of skin NE electromyogram (EMG) Today M50.30 - Other cervical disc degeneration, unspecified cervical region, M54.12 - Radiculopathy, cervical region, R20.0 - Anesthesia of skin, R20.2 - Paresthesia of skin Medications: Refilled hydrocodone-acetaminophen 10-325 mg Partial Fill upon patient request. 1 tab PO QID 30 days PRN 120 tabs 0RF severe pain (scale score 7-10) M25.561 - Pain in right knee, M25.562 - Pain in left knee, M47.27 - Other spondylosis with radiculopathy, lumbosacral region, M96.1 - Postlaminectomy syndrome, not elsewhere classified, Z79.891 - oil heaterman (current) use of opiate analgesic Coding Level of Care Code Est Pt Level 4 (98446) Diagnoses Lumbosacral spondylosis M47.817 Post-laminectomy syndrome M96.1 Fibromyalgia M79.7 Opiate analgesic contract exists Z79.891 Cervical radiculitis M54.12 Disc disease, degenerative, cervical M50.30 Numbness and tingling of both upper extremities R20.0; R20.2
[2024-03-28 10:22] VITALS: BP 142/67; PULSE 107; O2SAT 98; BMI 46.4
== END 2024-03-28 10:46 | disposition home or self-care (01) ==
PROVIDERS: PCP Internal Medicine; Visit Provider Nurse Practitioner Family
DX: M47.817 Spondylosis without myelopathy or radiculopathy, lumbosacral region (principal); M96.1 Postlaminectomy syndrome, not elsewhere classified; M79.7 Fibromyalgia; Z79.891 Long term (current) use of opiate analgesic; M54.12 Radiculopathy, cervical region; M50.30 Other cervical disc degeneration, unspecified cervical region; R20.0 Anesthesia of skin; R20.2 Paresthesia of skin
CPT/HCPCS: 99214

== ENCOUNTER → 2024-03-28 10:14 | Outpatient (BNVA) | payer OTHER, SELFPAY | PROVIDERS: PCP Internal Medicine; Visit Provider Nurse Practitioner Family | DX: M47.817 Spondylosis without myelopathy or radiculopathy, lumbosacral region (principal); M96.1 Postlaminectomy syndrome, not elsewhere classified; M79.7 Fibromyalgia; M54.12 Radiculopathy, cervical region; M50.30 Other cervical disc degeneration, unspecified cervical region; R20.0 Anesthesia of skin; R20.2 Paresthesia of skin; Z79.891 Long term (current) use of opiate analgesic | CPT/HCPCS: 99212 ==

== ENCOUNTER 2024-05-02 10:07 | Outpatient (AMB) | payer OTHER, SELFPAY ==
--- NOTE | 2024-05-02 10:15 | MHC.OFFVIS ---
Vital Signs 05/02/24 10:27 Height 5 ft 7 in Weight 295 lb 6 oz BMI 46.3 BP 142/72 H Blood Pressure Location Lt brachial Position Sitting Pulse 93 Pulse Source Pulse Oximeter Pulse Oximetry (%) 97 Oxygen Delivery Method Room Air Intake Visit Reasons: Pill Count Intake Note: Cris comes in today for a pill count to hydrocodone-acetaminophen, patient should have 32 tablets and presents with 31 tablets which she last took today 05/02/24 at 8:30 am. Pain today 02/01 Copy Machine Operator Required: No Accompanied by: Grand Child Allergies No Known Allergies Allergy (Verified 05/02/24 10:26) HPI Comments Details: Patient presents today for a pill count. Patient is supposed to have #32 Vicodin pills and presents with #31 pills. This demonstrates a responsible attitude in regards to her medication regimen. Patient reports adequate analgesia on her current regime of hydrocodone-acetaminophen 10-325 mg QID as needed with no noted side effects. Denies any recent cough, cold, infection, fever or other significant changes in medical history since last office visit. [facility] Medical History Spinal cord stimulator status Bipolar 1 disorder, depressed Broken humerus Surgical History S/P ORIF (open reduction internal fixation) fracture Right humeral fracture H/O: hysterectomy H/O laminectomy Social History Patient Tobacco Use Status: Never used Tobacco Review of Systems Const All systems reviewed & are unremarkable except as noted in HPI and below Physical Exam Vital Signs: Last Vital Signs Pulse 93 05/02/24 10:27 BP 142/72 H 05/02/24 10:27 Pulse Ox 97 05/02/24 10:27 Oxygen Delivery Method Room Air 05/02/24 10:27 BMI result Body Mass Index 46.3 General: Appears afebrile. Alert and oriented. Mood and affect appropriate. Follows and participates in conversation appropriately. Respiratory effort is unlabored. No cough. Able to transition from sit to stand unassisted. Ambulates with bilaterally normal heel strike and toe off. Extrem General: Yes capillary refill normal, Yes no clubbing, cyanosis or edema and Yes no calf tenderness Psych Appearance: grossly normal Mental Status: mental status grossly normal Speech and movement: Normal speech and movement present Affect: normal affect Attitude: cooperative Thought process: Normal thought process present Thought content: Normal thought content present, suicidality (none), no hallucinations and No Depressive thoughts present Insight: Good insight present (Psych) Judgement: Good judgement present (Psych) Results Reviewed Results Reviewed: No imaging reports are available for review. Assessment & Plan Assessment & Plan (1) Lumbosacral spondylosis: Code(s): M47.817 - Spondylosis without myelopathy or radiculopathy, lumbosacral region Category: Medical (2) Post-laminectomy syndrome: Code(s): M96.1 - Postlaminectomy syndrome, not elsewhere classified Category: Medical (3) Fibromyalgia: Code(s): M79.7 - Fibromyalgia Category: Medical (4) Opiate analgesic contract exists: Code(s): Z79.891 - bed bug exterminator (current) use of opiate analgesic Category: Medical (5) Disc disease, degenerative, cervical: Code(s): M50.30 - Other cervical disc degeneration, unspecified cervical region Category: Medical (6) Chronic low back pain: Code(s): M54.50 - Low back pain, unspecified; G89.29 - Other chronic pain Category: Medical Plan Patient has shown accountability for her medication regimen and the pill count was accurate. The patient reported no noted side effects. There is no evidence of misuse, abuse or diversion at this time. [employer] reviewed. Script for hydrocodone-acetaminophen 10-325 mg QID prn is sent with advanced date of 05/08/24. All questions and concerns have been answered patient agreed. Follow-up next week for pill count and sooner as needed. Medications: Refilled hydrocodone-acetaminophen 10-325 mg Partial Fill upon patient request. 1 tab PO QID 30 days PRN 120 tabs 0RF severe pain (scale score 7-10) M25.561 - Pain in right knee, M25.562 - Pain in left knee, M47.27 - Other spondylosis with radiculopathy, lumbosacral region, M96.1 - Postlaminectomy syndrome, not elsewhere classified, Z79.891 - correction (current) use of opiate analgesic Coding Level of Care Code Est Pt Level 4 (52372) Diagnoses Lumbosacral spondylosis M47.817 Post-laminectomy syndrome M96.1 Fibromyalgia M79.7 Opiate analgesic contract exists Z79.891 Disc disease, degenerative, cervical M50.30 Chronic low back pain M54.50; G89.29
[2024-05-02 10:27] VITALS: BP 142/72; PULSE 93; O2SAT 97; BMI 46.3
== END 2024-05-02 10:41 | disposition home or self-care (01) ==
PROVIDERS: PCP Internal Medicine; Visit Provider Nurse Practitioner Family
DX: G89.29 Other chronic pain (principal); M47.817 Spondylosis without myelopathy or radiculopathy, lumbosacral region; M96.1 Postlaminectomy syndrome, not elsewhere classified; Z79.891 Long term (current) use of opiate analgesic; M79.7 Fibromyalgia; M50.30 Other cervical disc degeneration, unspecified cervical region; M54.50 Low back pain, unspecified
CPT/HCPCS: 99214

== ENCOUNTER → 2024-05-02 10:07 | Outpatient (BNVA) | payer OTHER, SELFPAY | PROVIDERS: PCP Internal Medicine; Visit Provider Nurse Practitioner Family | DX: M47.817 Spondylosis without myelopathy or radiculopathy, lumbosacral region (principal); M96.1 Postlaminectomy syndrome, not elsewhere classified; M79.7 Fibromyalgia; M50.30 Other cervical disc degeneration, unspecified cervical region; G89.29 Other chronic pain; M54.50 Low back pain, unspecified; Z79.891 Long term (current) use of opiate analgesic | CPT/HCPCS: 99212 ==

== ENCOUNTER → 2024-05-30 10:14 | Outpatient (BNVA) | payer OTHER, SELFPAY | PROVIDERS: PCP Internal Medicine | DX: Z79.891 Long term (current) use of opiate analgesic (principal) | CPT/HCPCS: 99211 ==

== ENCOUNTER 2024-06-27 14:04 | Outpatient (AMB) | payer OTHER, SELFPAY ==
--- NOTE | 2024-06-27 14:26 | A.OFFVIS_ITS ---
Vital Signs 06/27/24 14:35 Height 5 ft 7 in Weight 295 lb BMI 46.2 BP 142/69 H Blood Pressure Location Rt brachial Position Sitting Pulse 94 Pulse Source Pulse Oximeter Pulse Oximetry (%) 98 Oxygen Delivery Method Room Air Intake Visit Reasons: Pill Count Intake Note: Cris comes in today for a pill count to hydrocodone-acetaminophen, patient should have 56 tablets and presents with 69 tablets which she last took today 06/27/24 at 9am. Pain today 02/01. Director Investor Relations Required: No Accompanied by: Self / Same As Patient Allergies No Known Allergies Allergy (Verified 06/27/24 14:47) HPI Comments Details: Patient presents today for a pill count. Patient is supposed to have #56 Vicodin pills and presents with #69 pills. This demonstrates a responsible attitude in regards to her medication regimen. Patient reports adequate analgesia on her current regime of hydrocodone- acetaminophen 10-325 mg QID as needed with no noted side effects. Patient is scheduled for right thyroid lobectomy to further evaluate thyroid cancer. She had positive biopsy twice. Procedure is scheduled for 08/14/24 at [facility]. Patient continues to endorse left sided radiculopathy and would like to address this after her thyroid procedure. Denies any recent cough, cold, infection, fever or any other significant changes in medical history since last office visit. [facility] Medical History Spinal cord stimulator status Bipolar 1 disorder, depressed Broken humerus Surgical History S/P ORIF (open reduction internal fixation) fracture Right humeral fracture H/O: hysterectomy H/O laminectomy Social History Patient Tobacco Use Status: Never used Tobacco Review of Systems Const All systems reviewed & are unremarkable except as noted in HPI and below Physical Exam Vital Signs: Last Vital Signs Pulse 94 06/27/24 14:35 BP 142/69 H 06/27/24 14:35 Pulse Ox 98 06/27/24 14:35 Oxygen Delivery Method Room Air 06/27/24 14:35 BMI result Body Mass Index 46.2 General: Appears afebrile. No acute distress. Alert and oriented. Mood and affect appropriate. Follows and participates in conversation appropriately. Respiratory effort is unlabored. No cough. Able to transition from sit to stand unassisted. Ambulates with bilaterally normal heel strike and toe off. Extrem General: Yes capillary refill normal, Yes no clubbing, cyanosis or edema and Yes no calf tenderness Psych Appearance: grossly normal Mental Status: mental status grossly normal Speech and movement: Normal speech and movement present and Clear speech present Affect: normal affect Attitude: cooperative Thought process: Normal thought process present Thought content: Normal thought content present, suicidality (none), no hallucinations and No Depressive thoughts present Insight: Good insight present (Psych) Judgement: Good judgement present (Psych) Results Reviewed Results Reviewed: No imaging reports are available for review. Assessment & Plan Assessment & Plan (1) Lumbosacral spondylosis: Code(s): M47.817 - Spondylosis without myelopathy or radiculopathy, lumbosacral region Category: Medical (2) Post-laminectomy syndrome: Code(s): M96.1 - Postlaminectomy syndrome, not elsewhere classified Category: Medical (3) Fibromyalgia: Code(s): M79.7 - Fibromyalgia Category: Medical (4) Opiate analgesic contract exists: Code(s): Z79.891 - long term care administrator (current) use of opiate analgesic Category: Medical (5) Disc disease, degenerative, cervical: Code(s): M50.30 - Other cervical disc degeneration, unspecified cervical region Category: Medical (6) Chronic low back pain: Code(s): M54.50 - Low back pain, unspecified; G89.29 - Other chronic pain Category: Medical Plan Patient has shown accountability for her medication regimen and the pill count was accurate. The patient reported no noted side effects. There is no evidence of misuse, abuse or diversion at this time. [employer] reviewed. Script for hydrocodone-acetaminophen 10-325 mg QID prn is sent with advanced date of 07/13/24. All questions and concerns have been answered patient agreed. Follow-up in one month for pill count and sooner as needed. Medications: Refilled hydrocodone-acetaminophen 10-325 mg Partial Fill upon patient request. 1 tab PO QID 30 days PRN 120 tabs 0RF severe pain (scale score 7-10) M25.561 - Pain in right knee, M25.562 - Pain in left knee, M47.27 - Other spondylosis with radiculopathy, lumbosacral region, M96.1 - Postlaminectomy syndrome, not elsewhere classified, Z79.891 - long term care administrator (current) use of opiate analgesic Coding Level of Care Code Est Pt Level 4 (06824) Complex EM visit Add On G2211 Diagnoses Lumbosacral spondylosis M47.817 Post-laminectomy syndrome M96.1 Fibromyalgia M79.7 Opiate analgesic contract exists Z79.891 Disc disease, degenerative, cervical M50.30 Chronic low back pain M54.50; G89.29
[2024-06-27 14:35] VITALS: BP 142/69; PULSE 94; O2SAT 98; BMI 46.2
== END 2024-06-27 14:46 | disposition home or self-care (01) ==
PROVIDERS: PCP Internal Medicine; Visit Provider Nurse Practitioner Family
DX: M47.817 Spondylosis without myelopathy or radiculopathy, lumbosacral region (principal); M96.1 Postlaminectomy syndrome, not elsewhere classified; M79.7 Fibromyalgia; Z79.891 Long term (current) use of opiate analgesic; M50.30 Other cervical disc degeneration, unspecified cervical region; M54.50 Low back pain, unspecified; G89.29 Other chronic pain
CPT/HCPCS: 99214; G2211

== ENCOUNTER → 2024-06-27 14:04 | Outpatient (BNVA) | payer OTHER, SELFPAY | PROVIDERS: PCP Internal Medicine; Visit Provider Nurse Practitioner Family | DX: Z51.81 Encounter for therapeutic drug level monitoring (principal); M47.817 Spondylosis without myelopathy or radiculopathy, lumbosacral region; M96.1 Postlaminectomy syndrome, not elsewhere classified; M79.7 Fibromyalgia; M50.30 Other cervical disc degeneration, unspecified cervical region; M54.50 Low back pain, unspecified; G89.29 Other chronic pain; Z79.891 Long term (current) use of opiate analgesic | CPT/HCPCS: 99212 ==

== ENCOUNTER 2024-08-01 09:52 | Outpatient (AMB) | payer OTHER, SELFPAY ==
--- NOTE | 2024-08-01 10:10 | MHC.OFFVIS ---
Vital Signs 08/01/24 10:17 Height 5 ft 7 in Weight 296 lb 6 oz BMI 46.4 BP 145/79 H Blood Pressure Location Lt brachial Position Sitting Pulse 97 Pulse Source Pulse Oximeter Pulse Oximetry (%) 96 Oxygen Delivery Method Room Air Intake Visit Reasons: PILL COUNT Intake Note: Cris comes in today for a pill count to hydrocodone-acetaminophen, patient should have 44 tablets and presents with 48 tablets which she last took today 08/01/24 at 7:30am. Pain today 03/03 Charge Nurse Required: No Accompanied by: Self / Same As Patient Allergies No Known Allergies Allergy (Verified 08/01/24 10:18) HPI Comments Details: Patient presents today for a pill count. Patient is supposed to have #44 Vicodin pills and presents with #48 pills. This demonstrates a responsible attitude in regards to her medication regimen. Patient reports adequate analgesia on her current regime of hydrocodone-acetaminophen 10-325 mg QID as needed with no noted side effects. Reports recent fibromyalgia flare up in her lower back and bilateral hips with movements and daily activities. Patient is scheduled for right thyroid lobectomy to further evaluate thyroid cancer on 08/14/24 at [facility] [place]. She had positive biopsy twice. She is also planning to follow up with her Orthopedic provider regarding increased right upper extremity pain and muscle stiffness with overuse or fishing. Denies any recent cough, cold, infection, fever or any other significant changes in medical history since last office visit. [facility] Medical History Spinal cord stimulator status Bipolar 1 disorder, depressed Broken humerus Surgical History S/P ORIF (open reduction internal fixation) fracture Right humeral fracture H/O: hysterectomy H/O laminectomy Social History Patient Tobacco Use Status: Never used Tobacco Review of Systems Const All systems reviewed & are unremarkable except as noted in HPI and below Physical Exam Vital Signs: Last Vital Signs Pulse 97 08/01/24 10:17 BP 145/79 H 08/01/24 10:17 Pulse Ox 96 08/01/24 10:17 Oxygen Delivery Method Room Air 08/01/24 10:17 BMI result Body Mass Index 46.4 General: Appears afebrile. No acute distress. Alert and oriented. Mood and affect appropriate. Follows and participates in conversation appropriately. Respiratory effort is unlabored. No cough. Able to transition from sit to stand unassisted. Ambulates with bilaterally normal heel strike and toe off. Back/Spine/Pelvis Cervical Spine: cervical ROM normal and cervical muscular tenderness Thoracic/Lumbar Spine: thoracic and lumbar spine normal to inspection, Thoracic/lumbar spine scar(s), pain with thoraco-lumbar ROM, thoraco-lumbar ROM limited, No thoracic spinal tenderness and No lumbar spinal tenderness Extrem General: Yes capillary refill normal, Yes no clubbing, cyanosis or edema and Yes no calf tenderness Psych Appearance: grossly normal Mental Status: mental status grossly normal Speech and movement: Normal speech and movement present and Clear speech present Affect: normal affect Attitude: cooperative Thought process: Normal thought process present Thought content: Normal thought content present, suicidality (none), no hallucinations and No Depressive thoughts present Insight: Good insight present (Psych) Judgement: Good judgement present (Psych) Results Reviewed Results Reviewed: No imaging reports are available for review. Assessment & Plan Assessment & Plan (1) Lumbosacral spondylosis: Code(s): M47.817 - Spondylosis without myelopathy or radiculopathy, lumbosacral region Category: Medical (2) Post-laminectomy syndrome: Code(s): M96.1 - Postlaminectomy syndrome, not elsewhere classified Category: Medical (3) Fibromyalgia: Code(s): M79.7 - Fibromyalgia Category: Medical (4) Opiate analgesic contract exists: Code(s): Z79.891 - [facility] (current) use of opiate analgesic Category: Medical (5) Disc disease, degenerative, cervical: Code(s): M50.30 - Other cervical disc degeneration, unspecified cervical region Category: Medical (6) Chronic low back pain: Code(s): M54.50 - Low back pain, unspecified; G89.29 - Other chronic pain Category: Medical Plan Patient has shown accountability for her medication regimen and the pill count was accurate. The patient reported no noted side effects. There is no evidence of misuse, abuse or diversion at this time. [employer] reviewed. Script for hydrocodone-acetaminophen 10-325 mg QID prn is sent with advanced date of 08/11/24. Patient is scheduled for right thyroid lobectomy to further evaluate thyroid cancer on 08/14/24 at [facility] [place]. She will notify our office if any concerns to address post-op pain. All questions and concerns have been answered patient agreed. Follow-up in one month for pill count and sooner as needed. Medications: Refilled hydrocodone-acetaminophen 10-325 mg Partial Fill upon patient request. 1 tab PO QID PRN 120 tabs 0RF severe pain (scale score 7-10) 30 days M25.561 - Pain in right knee, M25.562 - Pain in left knee, M47.27 - Other spondylosis with radiculopathy, lumbosacral region, M96.1 - Postlaminectomy syndrome, not elsewhere classified, Z79.891 - [employer] (current) use of opiate analgesic Coding Level of Care Code Est Pt Level 4 (54720) Complex EM visit Add On G2211 Diagnoses Lumbosacral spondylosis M47.817 Post-laminectomy syndrome M96.1 Fibromyalgia M79.7 Opiate analgesic contract exists Z79.891 Disc disease, degenerative, cervical M50.30 Chronic low back pain M54.50; G89.29
[2024-08-01 10:17] VITALS: BP 145/79; PULSE 97; O2SAT 96; BMI 46.4
== END 2024-08-01 10:26 | disposition home or self-care (01) ==
PROVIDERS: PCP Internal Medicine; Visit Provider Nurse Practitioner Family
DX: M47.817 Spondylosis without myelopathy or radiculopathy, lumbosacral region (principal); M96.1 Postlaminectomy syndrome, not elsewhere classified; M79.7 Fibromyalgia; Z79.891 Long term (current) use of opiate analgesic; M50.30 Other cervical disc degeneration, unspecified cervical region; M54.50 Low back pain, unspecified; G89.29 Other chronic pain
CPT/HCPCS: 99214; G2211

== ENCOUNTER → 2024-08-01 09:52 | Outpatient (BNVA) | payer OTHER, SELFPAY | PROVIDERS: PCP Internal Medicine; Visit Provider Nurse Practitioner Family | DX: Z51.81 Encounter for therapeutic drug level monitoring (principal); M47.817 Spondylosis without myelopathy or radiculopathy, lumbosacral region; M96.1 Postlaminectomy syndrome, not elsewhere classified; M79.7 Fibromyalgia; M50.30 Other cervical disc degeneration, unspecified cervical region; M54.50 Low back pain, unspecified; G89.29 Other chronic pain; Z79.891 Long term (current) use of opiate analgesic | CPT/HCPCS: 99212 ==

== ENCOUNTER 2024-09-05 10:03 | Outpatient (AMB) | payer OTHER, SELFPAY ==
--- NOTE | 2024-09-05 10:04 | A.OFFVIS_ITS ---
Vital Signs 09/05/24 10:11 Height 5 ft 7 in Weight 299 lb 2 oz BMI 46.8 BP 158/70 H Blood Pressure Location Rt brachial Position Sitting Pulse 103 H Pulse Source Pulse Oximeter Pulse Oximetry (%) 98 Oxygen Delivery Method Room Air Intake Visit Reasons: Pill Count Intake Note: Cris comes in today for a pill count to hydrocodone-acetaminophen, patient should have 20 tablets and presents with 30.5 tablets which she last took today 09/05/24 at 8:30am. 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 Patient is supposed to have #20 Vicodin pills and presents with #30.5 pills. This demonstrates a responsible attitude in regards to her medication regimen. She reports adequate analgesia on her current regime of hydrocodone-acetaminophen 10-325 mg QID as needed with no noted side effects. Patient is scheduled for right thyroidectomy on 09/27/24 due to recent multiple biopsies positive for follicular thyroid cancer. Denies any recent cough, cold, infection, fever or any other significant changes in medical history since last office visit. [facility] Medical History Spinal cord stimulator status Bipolar 1 disorder, depressed Broken humerus Surgical History S/P ORIF (open reduction internal fixation) fracture Right humeral fracture H/O: hysterectomy H/O laminectomy Social History Patient Tobacco Use Status: Never used Tobacco Review of Systems Const All systems reviewed & are unremarkable except as noted in HPI and below Physical Exam Vital Signs: Last Vital Signs Pulse 103 H 09/05/24 10:11 BP 158/70 H 09/05/24 10:11 Pulse Ox 98 09/05/24 10:11 Oxygen Delivery Method Room Air 09/05/24 10:11 BMI result Body Mass Index 46.8 General: Appears afebrile. No acute distress. Alert and oriented. Mood and affect appropriate. Follows and participates in conversation appropriately. Respiratory effort is unlabored. No cough. Able to transition from sit to stand unassisted. Ambulates with bilaterally normal heel strike and toe off. Resp Effort & Inspection: normal respiratory effort, able to speak in complete sentences, no cough, no respiratory distress and symmetric chest movement Psych Appearance: grossly normal Mental Status: mental status grossly normal Speech and movement: Normal speech and movement present and Clear speech present Affect: normal affect Attitude: cooperative Thought process: Normal thought process present Thought content: Normal thought content present, suicidality (none), no hallucinations and No Depressive thoughts present Insight: Good insight present (Psych) Judgement: Good judgement present (Psych) Results Reviewed Results Reviewed: MR SPINE CERVICAL without CONTRAST 08/16/23 INDICATION: Postlaminectomy syndrome, not elsewhere classified. Pain for years. Bilateral hand numbness. History of fibromyalgia. TECHNIQUE: Unenhanced multiplanar, multisequence MR imaging of the cervical s pine. COMPARISON: None Available. FINDINGS: Straightening of normal cervical lordosis. Mild loss of intervertebral disc space height and marginal osteophyte formation C4-C5 and C5-C6. Degenerative changes of the C1-C2 articulation and craniocervical junction otherwise of normal relationship. Cervical facet arthrosis. Prevertebral soft tissues of normal appearance. Examination through the cranial cervical junction showing it to be widely patent. Examination through the C2-C3 intervertebral level revealing facet arthrosis and uncovertebral degenerative changes. No significant central stenosis. Moderate RIGHT foraminal narrowing. Mild LEFT foraminal narrowing. Examination through the C3-C4 intervertebral level revealing facet arthrosis and uncovertebral degenerative changes. Moderate to severe bilateral foraminal narrowing. Examination through the C4-C5 intervertebral level revealing facet arthrosis with uncovertebral degenerative changes and posterior disc osteophyte. Effacement of the CSF. Mild cord flattening. No cord signal changes. Moderate RIGHT foraminal narrowing. Moderate to severe LEFT foraminal narrowing. Examination through the C5-C6 intervertebral level revealing facet arthrosis. Uncovertebral degenerative changes and posterior disc osteophyte. Effacement of ventral CSF. Mild cord flattening. No cord signal changes. Moderate RIGHT foraminal narrowing. Moderate to severe LEFT foraminal narrowing. Examination through the C6-C7 intervertebral level revealing facet arthrosis and uncovertebral degenerative changes. Small posterior disc osteophyte. No significant central stenosis. Moderate bilateral foraminal narrowing. Examination through the C7-T1 intervertebral level revealing facet arthrosis. No significant central stenosis or foraminal narrowing. IMPRESSION: Spondylotic changes and facet arthrosis. No findings of fracture or listhesis. No findings to suggest acute disc protrusion. Varying degrees of relative chronic appearing central stenosis and foraminal narrowing as detailed above. Note made of mild cord flattening of the chronic appearance at C4-C5 and C5-C6. No priors are available for comparison. MR THORACIC w + wo CONTRAST, MR SPINE LUMBAR w + wo CONTRAST 08/11/23 INDICATION: Mid to low back pain with pain and weakness in both legs. Postlaminectomy syndrome. Spondylosis with radiculopathy, lumbosacral region. TECHNIQUE: Unenhanced and enhanced multiplanar, multisequence MR imaging of the thoracic and lumbar spine. Dotarem 20 mL was administered intravenously. No contrast waste documented. COMPARISON: None. FINDINGS: The examination is slightly limited due to patient motion. MRI thoracic spine: Normal alignment is demonstrated. Vertebral heights are well maintained. Bone marrow signal is within normal limits, and no suspicious osseous lesion is identified. Prevertebral and paraspinal soft tissues are within normal limits. Thoracic cord demonstrates normal course, caliber, and signal characteristics. No epidural fluid collection or hematoma is identified. No area of abnormal enhancement is identified. There are small disc bulges at T6-7 and T8-9. No significant central canal stenosis is identified. Neural foramina are patent throughout. Visualized chest and abdomen are grossly unremarkable. MRI lumbar spine: Normal alignment is demonstrated. Vertebral heights are well maintained. Bone marrow signal is within normal limits, and no suspicious osseous lesion is identified. Conus medullaris is unremarkable. No area of abnormal enhancement is identified. Paraspinal soft tissues and visualized portions of the abdomen and pelvis are unremarkable. At L1-2 there is no significant disc herniation or protrusion. No central canal or neuroforaminal stenosis is demonstrated. At L2-3 there is no significant disc herniation or protrusion. No central canal or neuroforaminal stenosis is demonstrated. At L3-4 there is a small broad-based disc bulge as well as bilateral facet hypertrophy and thickening of the ligamentum flavum. This causes mild central canal stenosis, but no neuroforaminal narrowing. At L4-5 there is no significant disc herniation or protrusion. There is jamshid ateral facet hypertrophy and thickening of the ligamentum flavum. This causes mild central canal stenosis, but no neuroforaminal narrowing. At L5-S1 there is no significant disc herniation or protrusion. There is bilateral facet hypertrophy. No central canal or neuroforaminal stenosis is demonstrated. IMPRESSION: 1. The examination is slightly limited due to patient motion. 2. Thoracic spine demonstrates small disc bulges at T6-7 and T8-9, but no significant central canal stenosis or nerve root compromise at any level. 3. Lumbar spine demonstrates mild central canal stenosis at L3-4 and L4-5. There is no significant neuroforaminal narrowing or nerve root compromise at any level. 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 The patient reported no noted side effects. There is no evidence of misuse, abuse or diversion at this time. [employer] reviewed. Script for hydrocodone-acetaminophen 10-325 mg QID prn is sent with advanced date of 09/10/24. Patient is scheduled for right thyroidectomy for positive follicular thyroid cancer on 09/27/24 at [facility] [place]. She will notify our office if any concerns to address post-op pain. All questions and concerns have been answered patient agreed. Follow-up in one [facility] for pill count and sooner as needed. Medications: Refilled hydrocodone-acetaminophen 10-325 mg Partial Fill upon patient request. 1 tab PO QID 30 days PRN 120 tabs 0RF severe pain (scale score 7-10) M25.561 - Pain in right knee, M25.562 - Pain in left knee, M47.27 - Other spondylosis with radiculopathy, lumbosacral region, M96.1 - Postlaminectomy syndrome, not elsewhere classified, Z79.891 - [employer] terminal [employer]er (current) use of opiate analgesic Coding Level of Care Code Est Pt Level 4 (41967) Complex EM visit Add On G2211 Diagnoses Follicular thyroid cancer C73 Lumbosacral spondylosis M47.817 Post-laminectomy syndrome M96.1 Fibromyalgia M79.7 Opiate analgesic contract exists Z79.891 Disc disease, degenerative, cervical M50.30 Chronic low back pain M54.50; G89.29
[2024-09-05 10:11] VITALS: BP 158/70; PULSE 103; O2SAT 98; BMI 46.8
== END 2024-09-05 10:18 | disposition home or self-care (01) ==
PROVIDERS: PCP Internal Medicine; Visit Provider Nurse Practitioner Family
DX: C73 Malignant neoplasm of thyroid gland (principal); M47.817 Spondylosis without myelopathy or radiculopathy, lumbosacral region; M96.1 Postlaminectomy syndrome, not elsewhere classified; M79.7 Fibromyalgia; Z79.891 Long term (current) use of opiate analgesic; M50.30 Other cervical disc degeneration, unspecified cervical region; M54.50 Low back pain, unspecified; G89.29 Other chronic pain
CPT/HCPCS: 99214; G2211

== ENCOUNTER → 2024-09-05 10:03 | Outpatient (BNVA) | payer OTHER, SELFPAY | PROVIDERS: PCP Internal Medicine; Visit Provider Nurse Practitioner Family | DX: Z51.81 Encounter for therapeutic drug level monitoring (principal); M47.817 Spondylosis without myelopathy or radiculopathy, lumbosacral region; M96.1 Postlaminectomy syndrome, not elsewhere classified; M79.7 Fibromyalgia; M50.30 Other cervical disc degeneration, unspecified cervical region; M54.50 Low back pain, unspecified; C73 Malignant neoplasm of thyroid gland; G89.29 Other chronic pain; Z79.891 Long term (current) use of opiate analgesic | CPT/HCPCS: 99212 ==

== ENCOUNTER 2024-10-10 10:04 | Outpatient (AMB) | payer OTHER, SELFPAY ==
--- NOTE | 2024-10-10 10:08 | A.OFFVIS_ITS ---
Vital Signs 10/10/24 10:16 Height 5 ft 7 in Weight 298 lb 4 oz BMI 46.7 BP 165/72 H Blood Pressure Location Rt brachial Position Sitting Pulse 94 Pulse Source Pulse Oximeter Pulse Oximetry (%) 97 Oxygen Delivery Method Room Air Intake Visit Reasons: PILL COUNT Intake Note: Cris comes in today for a pill count to hydrocodone-acetaminophen, patient should have 4 tablets and presents with 10 tablets which she last took today 10/10/24 at 9am. 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 Accompanied by: Grand Child Allergies No Known Allergies Allergy (Verified 10/10/24 10:17) Medication List - Last Reconciled 10/10/24 by ROBYN Ren back brace As directed citalopram 20 mg PO DAILY cyclobenzaprine 10 mg PO BID PRN docusate sodium 100 mg PO BID 30 days epinephrine 0.3 mg IM ONCE fluticasone propionate 220 mcg/actuation (Flovent HFA) 1 puff inhalation BID hydrocodone-acetaminophen 10-325 mg 1 tab PO QID PRN 30 days ipratropium-albuterol 20-100 mcg/actuation (Combivent Respimat) 1 puff inhalation Q6H ketoprofen 10% metered-dose pump topically apply 1-2 pumps to affected area 3 times per day as needed; lamotrigine (Lamictal) 150 mg PO DAILY levothyroxine 200 mcg PO DAILY montelukast (Singulair) 10 mg PO BEDTIME naloxone 4 mg/actuation (Narcan) 4 mg intranasal Q2M PRN pregabalin 50 mg PO BID 30 days HPI Comments Details: Patient presents today for a pill count. Patient is supposed to have #4 Vicodin pills and presents with #10 pills. This demonstrates a responsible attitude in regards to her medication regimen. She reports adequate analgesia on her current regime of hydrocodone-acetaminophen 10-325 mg QID as needed with no noted side effects. Patient underwent right thyroidectomy on 09/27/24 due to multiple biopsies positive for follicular thyroid cancer and was told final nodule was benign. She also underwent partial parathyroidectomy surgery and now takes levothyroxine. She follows with Dr. Eden at [facility] Endocrinology. Denies any recent cough, cold, infection, fever or any other significant changes in medical history since last office visit. [facility] Medical History Spinal cord stimulator status Bipolar 1 disorder, depressed Broken humerus Surgical History S/P ORIF (open reduction internal fixation) fracture Right humeral fracture H/O: hysterectomy H/O laminectomy Social History Patient Tobacco Use Status: Never used Tobacco Review of Systems Const All systems reviewed & are unremarkable except as noted in HPI and below Physical Exam Vital Signs: Last Vital Signs Pulse 94 10/10/24 10:16 BP 165/72 H 10/10/24 10:16 Pulse Ox 97 10/10/24 10:16 Oxygen Delivery Method Room Air 10/10/24 10:16 BMI result Body Mass Index 46.7 General: Appears afebrile. Alert and oriented. Mood and affect appropriate. Follows and participates in conversation appropriately. Respiratory effort is unlabored. No cough. Able to transition from sit to stand unassisted. Ambulates with bilaterally normal heel strike and toe off. Neck Neck: Yes full ROM, Yes no lymphadenopathy, Yes supple, No anterior neck swelling, Yes no JVD, Yes prominent dorsocervical fat pad and Yes other (well healed midline/right anterior neck incision with normal scarring) Resp Effort & Inspection: normal respiratory effort, able to speak in complete sentences, no cough, no respiratory distress and symmetric chest movement Psych Appearance: grossly normal Mental Status: mental status grossly normal Speech and movement: Normal speech and movement present and Clear speech present Affect: normal affect Attitude: cooperative Thought process: Normal thought process present Thought content: Normal thought content present, suicidality (none), no hallucinations and No Depressive thoughts present Insight: Good insight present (Psych) Judgement: Good judgement present (Psych) Results Reviewed Results Reviewed: MR SPINE CERVICAL without CONTRAST 08/16/23 INDICATION: Postlaminectomy syndrome, not elsewhere classified. Pain for years. Bilateral hand numbness. History of fibromyalgia. TECHNIQUE: Unenhanced multiplanar, multisequence MR imaging of the cervical spine. COMPARISON: None Available. FINDINGS: Straightening of normal cervical lordosis. Mild loss of intervertebral disc space height and marginal osteophyte formation C4-C5 and C5-C6. Degenerative changes of the C1-C2 articulation and craniocervical junction otherwise of normal relationship. Cervical facet arthrosis. Prevertebral soft tissues of normal appearance. Examination through the cranial cervical junction showing it to be widely patent. Examination through the C2-C3 intervertebral level revealing facet arthrosis and uncovertebral degenerative changes. No significant central stenosis. Moderate RIGHT foraminal narrowing. Mild LEFT foraminal narrowing. Examination through the C3-C4 intervertebral level revealing facet arthrosis and uncovertebral degenerative changes. Moderate to severe bilateral foraminal narrowing. Examination through the C4-C5 intervertebral level revealing facet arthrosis with uncovertebral degenerative changes and posterior disc osteophyte. Effacement of the CSF. Mild cord flattening. No cord signal changes. Moderate RIGHT foraminal narrowing. Moderate to severe LEFT foraminal narrowing. Examination through the C5-C6 intervertebral level revealing facet arthrosis. Uncovertebral degenerative changes and posterior disc osteophyte. Effacement of ventral CSF. Mild cord flattening. No cord signal changes. Moderate RIGHT foraminal narrowing. Moderate to severe LEFT foraminal narrowing. Examination through the C6-C7 intervertebral level revealing facet arthrosis and uncovertebral degenerative changes. Small posterior disc osteophyte. No significant central stenosis. Moderate bilateral foraminal narrowing. Examination through the C7-T1 intervertebral level revealing facet arthrosis. No significant central stenosis or foraminal narrowing. IMPRESSION: Spondylotic changes and facet arthrosis. No findings of fracture or listhesis. No findings to suggest acute disc protrusion. Varying degrees of relative chronic appearing central stenosis and foraminal narrowing as detailed above. Note made of mild cord flattening of the chronic appearance at C4-C5 and C5-C6. No priors are available for comparison. MR THORACIC w + wo CONTRAST, MR SPINE LUMBAR w + wo CONTRAST 08/11/23 INDICATION: Mid to low back pain with pain and weakness in both legs. Postlaminectomy syndrome. Spondylosis with radiculopathy, lumbosacral region. TECHNIQUE: Unenhanced and enhanced multiplanar, multisequence MR imaging of the thoracic and lumbar spine. Dotarem 20 mL was administered intravenously. No contrast waste documented. COMPARISON: None. FINDINGS: The examination is slightly limited due to patient motion. MRI thoracic spine: Normal alignment is demonstrated. Vertebral heights are well maintained. Bone marrow signal is within normal limits, and no suspicious osseous lesion is identified. Prevertebral and paraspinal soft tissues are within normal limits. Thoracic cord demonstrates normal course, caliber, and signal characteristics. No epidural fluid collection or hematoma is identified. No area of abnormal enhancement is identified. There are small disc bulges at T6-7 and T8-9. No significant central canal stenosis is identified. Neural foramina are patent throughout. Visualized chest and abdomen are grossly unremarkable. MRI lumbar spine: Normal alignment is demonstrated. Vertebral heights are well maintained. Bone marrow signal is within normal limits, and no suspicious osseous lesion is identified. Conus medullaris is unremarkable. No area of abnormal enhancement is identified. Paraspinal soft tissues and visualized portions of the abdomen and pelvis are unremarkable. At L1-2 there is no significant disc herniation or protrusion. No central canal or neuroforaminal stenosis is demonstrated. At L2-3 there is no significant disc herniation or protrusion. No central canal or neuroforaminal stenosis is demonstrated. At L3-4 there is a small broad-based disc bulge as well as bilateral facet hypertrophy and thickening of the ligamentum flavum. This causes mild central canal stenosis, but no neuroforaminal narrowing. At L4-5 there is no significant disc herniation or protrusion. There is bilateral facet hypertrophy and thickening of the ligamentum flavum. This causes mild harika tral canal stenosis, but no neuroforaminal narrowing. At L5-S1 there is no significant disc herniation or protrusion. There is bilateral facet hypertrophy. No central canal or neuroforaminal stenosis is demonstrated. IMPRESSION: 1. The examination is slightly limited due to patient motion. 2. Thoracic spine demonstrates small disc bulges at T6-7 and T8-9, but no significant central canal stenosis or nerve root compromise at any level. 3. Lumbar spine demonstrates mild central canal stenosis at L3-4 and L4-5. There is no significant neuroforaminal narrowing or nerve root compromise at any level. Assessment & Plan Assessment & Plan (1) Follicular thyroid cancer: Code(s): C73 - Malignant neoplasm of thyroid gland Category: Medical (2) Lumbosacral spondylosis: Code(s): M47.817 - Spondylosis without myelopathy or radiculopathy, lumbosacral region Category: Medical (3) Post-laminectomy syndrome: Code(s): M96.1 - Postlaminectomy syndrome, not elsewhere classified Category: Medical (4) Fibromyalgia: Code(s): M79.7 - Fibromyalgia Category: Medical (5) Opiate analgesic contract exists: Code(s): Z79.891 - skilled nursing (current) use of opiate analgesic Category: Medical (6) Disc disease, degenerative, cervical: Code(s): M50.30 - Other cervical disc degeneration, unspecified cervical region Category: Medical (7) Chronic low back pain: Code(s): M54.50 - Low back pain, unspecified; G89.29 - Other chronic pain Category: Medical Plan Patient has shown accountability for her medication regimen and the pill count was accurate. The patient reported no noted side effects. There is no evidence of misuse, abuse or diversion at this time. [employer] reviewed. Script for hydrocodone-acetaminophen 10-325 mg QID prn is sent today. All questions and concerns have been answered patient agreed. Follow-up in one month for pill count and sooner as needed. Medications: Refilled hydrocodone-acetaminophen 10-325 mg Partial Fill upon patient request. 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
[2024-10-10 10:16] VITALS: BP 165/72; PULSE 94; O2SAT 97; BMI 46.7
== END 2024-10-10 10:39 | disposition home or self-care (01) ==
PROVIDERS: PCP Internal Medicine; Visit Provider Nurse Practitioner Family
DX: C73 Malignant neoplasm of thyroid gland (principal); M47.817 Spondylosis without myelopathy or radiculopathy, lumbosacral region; M96.1 Postlaminectomy syndrome, not elsewhere classified; M79.7 Fibromyalgia; Z79.891 Long term (current) use of opiate analgesic; M50.30 Other cervical disc degeneration, unspecified cervical region; M54.50 Low back pain, unspecified; G89.29 Other chronic pain
CPT/HCPCS: 99214; G2211

== ENCOUNTER → 2024-10-10 10:04 | Outpatient (BNVA) | payer OTHER, SELFPAY | PROVIDERS: PCP Internal Medicine; Visit Provider Nurse Practitioner Family | DX: Z51.81 Encounter for therapeutic drug level monitoring (principal); M47.817 Spondylosis without myelopathy or radiculopathy, lumbosacral region; M96.1 Postlaminectomy syndrome, not elsewhere classified; M79.7 Fibromyalgia; M50.30 Other cervical disc degeneration, unspecified cervical region; M54.50 Low back pain, unspecified; Z79.891 Long term (current) use of opiate analgesic | CPT/HCPCS: 99212 ==

== ENCOUNTER 2024-11-14 09:09 | Outpatient (AMB) | payer OTHER, SELFPAY ==
--- NOTE | 2024-11-14 09:11 | A.OFFVIS_ITS ---
Vital Signs 11/14/24 09:18 Height 5 ft 7 in Weight 300 lb 4 oz BMI 47.0 BP 150/70 H Blood Pressure Location Rt brachial Position Sitting Pulse 107 H Pulse Source Pulse Oximeter Intake Visit Reasons: Pill Count Intake Note: Cris comes in today for a pill count to hydrocodone-acetaminophen, patient should have 0 tablets and presents with 0 tablets which she last took today 11/14/24 at 9am. Pain today 4/10. Patient resigned opioid contract in office, signed copy was provided to patient. 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 Patient is supposed to have #0 Vicodin pills and presents with #0 pills. This demonstrates a responsible attitude in regards to her medication regimen. She reports adequate analgesia on her current regime of hydrocodone-acetaminophen 10-325 mg QID as needed with no noted side effects. Patient reports low back pain with spasming across her waistline and low back. Reports chronic left lower extremity neuropathy. Previously discussed interventional treatments for axial, radicular and post-laminectomy pain syndrome. Patient was planning to follow up with her Neurosurgeon at [facility] initially with plans for updating spine MRI. We also discussed formal physical therapy. Patient reports increased back pain with activities, walking and exercises. Pain is rated at 4/10. Denies any recent cough, cold, infection, fever or any other significant changes in medical history since last office visit. [facility] Medical History Spinal cord stimulator status Bipolar 1 disorder, depressed Broken humerus Surgical History S/P ORIF (open reduction internal fixation) fracture Right humeral fracture H/O: hysterectomy H/O laminectomy Social History Patient Tobacco Use Status: Never used Tobacco Review of Systems Const All systems reviewed & are unremarkable except as noted in HPI and below Physical Exam Vital Signs: Last Vital Signs Pulse 107 H 11/14/24 09:18 BP 150/70 H 11/14/24 09:18 BMI result Body Mass Index 47.0 General: Appears afebrile. Alert and oriented. Mood and affect appropriate. Follows and participates in conversation appropriately. Respiratory effort is unlabored. No cough. Able to transition from sit to stand unassisted. Ambulates with bilaterally normal heel strike and toe off. Resp Effort & Inspection: normal respiratory effort, able to speak in complete sentences, no cough, no respiratory distress and symmetric chest movement Back/Spine/Pelvis Cervical Spine: cervical ROM normal and Cervical spine tenderness Thoracic/Lumbar Spine: pain with thoraco-lumbar ROM, paraspinal muscle tenderness, thoraco-lumbar ROM limited, No thoracic spinal tenderness and No lumbar spinal tenderness Psych Appearance: grossly normal Mental Status: mental status grossly normal Speech and movement: Normal speech and movement present and Clear speech present Affect: normal affect Attitude: cooperative Thought process: Normal thought process present Thought content: Normal thought content present, suicidality (none), no hallucinations and No Depressive thoughts present Insight: Good insight present (Psych) Judgement: Good judgement present (Psych) Results Reviewed Results Reviewed: MR SPINE CERVICAL without CONTRAST 08/16/23 INDICATION: Postlaminectomy syndrome, not elsewhere classified. Pain for years. Bilateral hand numbness. History of fibromyalgia. TECHNIQUE: Unenhanced multiplanar, multisequence MR imaging of the cervical spine. COMPARISON: None Available. FINDINGS: Straightening of normal cervical lordosis. Mild loss of intervertebral disc space height and marginal osteophyte formation C4-C5 and C5-C6. Degenerative changes o f the C1-C2 articulation and craniocervical junction otherwise of normal relationship. Cervical facet arthrosis. Prevertebral soft tissues of normal appearance. Examination through the cranial cervical junction showing it to be widely patent. Examination through the C2-C3 intervertebral level revealing facet arthrosis and uncovertebral degenerative changes. No significant central stenosis. Moderate RIGHT foraminal narrowing. Mild LEFT foraminal narrowing. Examination through the C3-C4 intervertebral level revealing facet arthrosis and uncovertebral degenerative changes. Moderate to severe bilateral foraminal narrowing. Examination through the C4-C5 intervertebral level revealing facet arthrosis with uncovertebral degenerative changes and posterior disc osteophyte. Effacement of the CSF. Mild cord flattening. No cord signal changes. Moderate RIGHT foraminal narrowing. Moderate to severe LEFT foraminal narrowing. Examination through the C5-C6 intervertebral level revealing facet arthrosis. Uncovertebral degenerative changes and posterior disc osteophyte. Effacement of ventral CSF. Mild cord flattening. No cord signal changes. Moderate RIGHT foraminal narrowing. Moderate to severe LEFT foraminal narrowing. Examination through the C6-C7 intervertebral level revealing facet arthrosis and uncovertebral degenerative changes. Small posterior disc osteophyte. No significant central stenosis. Moderate bilateral foraminal narrowing. Examination through the C7-T1 intervertebral level revealing facet arthrosis. No significant central stenosis or foraminal narrowing. IMPRESSION: Spondylotic changes and facet arthrosis. No findings of fracture or listhesis. No findings to suggest acute disc protrusion. Varying degrees of relative chronic appearing central stenosis and foraminal narrowing as detailed above. Note made of mild cord flattening of the chronic appearance at C4-C5 and C5-C6. No priors are available for comparison. MR THORACIC w + wo CONTRAST, MR SPINE LUMBAR w + wo CONTRAST 08/11/23 INDICATION: Mid to low back pain with pain and weakness in both legs. Postlaminectomy syndrome. Spondylosis with radiculopathy, lumbosacral region. TECHNIQUE: Unenhanced and enhanced multiplanar, multisequence MR imaging of the thoracic and lumbar spine. Dotarem 20 mL was administered intravenously. No contrast waste documented. COMPARISON: None. FINDINGS: The examination is slightly limited due to patient motion. MRI thoracic spine: Normal alignment is demonstrated. Vertebral heights are well maintained. Bone marrow signal is within normal limits, and no suspicious osseous lesion is identified. Prevertebral and paraspinal soft tissues are within normal limits. Thoracic cord demonstrates normal course, caliber, and signal characteristics. No epidural fluid collection or hematoma is identified. No area of abnormal enhancement is identified. There are small disc bulges at T6-7 and T8-9. No significant central canal stenosis is identified. Neural foramina are patent throughout. Visualized chest and abdomen are grossly unremarkable. MRI lumbar spine: Normal alignment is demonstrated. Vertebral heights are well maintained. Bone marrow signal is within normal limits, and no suspicious osseous lesion is identified. Conus medullaris is unremarkable. No area of abnormal enhancement is identified. Paraspinal soft tissues and visualized portions of the abdomen and pelvis are unremarkable. At L1-2 there is no significant disc herniation or protrusion. No central canal or neuroforaminal stenosis is demonstrated. At L2-3 there is no significant disc herniation or protrusion. No central canal or neuroforaminal stenosis is demonstrated. At L3-4 there is a small broad-based disc bulge as well as bilateral facet hypertrophy and thickening of the ligamentum flavum. This causes mild central canal stenosis, but no neuroforaminal narrowing. At L4-5 there is no significant disc herniation or protrusion. There is bilateral facet hypertrophy and thickening of the ligamentum flavum. This causes mild central canal stenosis, but no neuroforaminal narrowing. At L5-S1 there is no significant disc herniation or protrusion. There is bilateral facet hypertrophy. No central canal or neuroforaminal stenosis is demonstrated. IMPRESSION: 1. The examination is slightly limited due to patient motion. 2. Thoracic spine demonstrates small disc bulges at T6-7 and T8-9, but no significant central canal stenosis or nerve root compromise at any level. 3. Lumbar spine demonstrates mild central canal stenosis at L3-4 and L4-5. There is no significant neuroforaminal narrowing or nerve root compromise at any level. 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 The patient reported no noted side effects. There is no evidence of misuse, abuse or diversion at this time. [employer] reviewed. Script for hydrocodone-acetaminophen 10-325 mg QID prn is sent today. Refill sent for Narcan today. All questions and concerns have been answered patient agreed. Follow-up in 4 weeks for pill count and sooner as needed. Medications: Refilled hydrocodone-acetaminophen 10-325 mg Partial Fill upon patient request. 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
[2024-11-14 09:18] VITALS: BP 150/70; PULSE 107; BMI 47.0
== END 2024-11-14 09:31 | disposition home or self-care (01) ==
PROVIDERS: PCP Internal Medicine; Visit Provider Nurse Practitioner Family
DX: M47.817 Spondylosis without myelopathy or radiculopathy, lumbosacral region (principal); M96.1 Postlaminectomy syndrome, not elsewhere classified; M79.7 Fibromyalgia; Z79.891 Long term (current) use of opiate analgesic; M50.30 Other cervical disc degeneration, unspecified cervical region; M54.50 Low back pain, unspecified; G89.29 Other chronic pain
CPT/HCPCS: 99214; G2211

== ENCOUNTER → 2024-11-14 09:09 | Outpatient (BNVA) | payer OTHER, SELFPAY | PROVIDERS: PCP Internal Medicine; Visit Provider Nurse Practitioner Family | DX: M47.817 Spondylosis without myelopathy or radiculopathy, lumbosacral region (principal); M96.1 Postlaminectomy syndrome, not elsewhere classified; M79.7 Fibromyalgia; M50.30 Other cervical disc degeneration, unspecified cervical region; M54.50 Low back pain, unspecified; G89.29 Other chronic pain; M25.561 Pain in right knee; M25.562 Pain in left knee; Z51.81 Encounter for therapeutic drug level monitoring; Z79.891 Long term (current) use of opiate analgesic | CPT/HCPCS: 99212 ==

== ENCOUNTER 2024-12-05 08:24 | Outpatient (AMB) | payer OTHER, SELFPAY ==
--- NOTE | 2024-12-05 08:51 | MHC.OFFVIS ---
Vital Signs 12/05/24 09:01 Height 5 ft 7 in Weight 302 lb 6 oz BMI 47.4 BP 188/77 H Blood Pressure Location Rt brachial Position Sitting Pulse 101 H Pulse Source Pulse Oximeter Pulse Oximetry (%) 96 Oxygen Delivery Method Room Air Intake Visit Reasons: PILL COUNT Intake Note: Cris comes in today for a pill count to hydrocodone-acetaminophen, patient should have 40 tablets and presents with 44 tablets which she last took today 12/05/24 at 7am. Pain today 5/10 Guide Escort Required: No Accompanied by: Self / Same As Patient Allergies No Known Allergies Allergy (Verified 12/05/24 08:52) HPI Comments Details: Patient presents today for a pill count. Patient is supposed to have #40 Vicodin pills and presents with #44 pills. This demonstrates a responsible attitude in regards to her medication regimen. She reports adequate analgesia on her current regime of hydrocodone-acetaminophen 10-325 mg QID as needed with no noted side effects. Patient reports low back pain with spasming across her waistline and low back with chronic left radiculopathy in L5-S1 distribution. Pain is present with most activities, walking, prolonged sitting or standing, lifting, twisting, sleep and cold weather. Previously discussed interventional treatments for axial, radicular and post-laminectomy pain syndrome. Patient was planning to follow up with her Neurosurgeon at [facility] initially with plans for updating spine MRI. Patient reports increased back pain with activities, walking and exercises. Pain is rated at 5/10. Denies any recent cough, cold, infection, fever or any other significant changes in medical history since last office visit. [facility] Medical History Spinal cord stimulator status Bipolar 1 disorder, depressed Broken humerus Surgical History S/P ORIF (open reduction internal fixation) fracture Right humeral fracture H/O: hysterectomy H/O laminectomy Social History Patient Tobacco Use Status: Never used Tobacco Current occupational status: disabled Review of Systems Const All systems reviewed & are unremarkable except as noted in HPI and below Physical Exam Vital Signs: Last Vital Signs Pulse 101 H 12/05/24 09:01 BP 188/77 H 12/05/24 09:01 Pulse Ox 96 12/05/24 09:01 Oxygen Delivery Method Room Air 12/05/24 09:01 BMI result Body Mass Index 47.4 General: Appears afebrile. Alert and oriented. Mood and affect appropriate. Follows and participates in conversation appropriately. Respiratory effort is unlabored. No cough. Able to transition from sit to stand unassisted. Ambulates with bilaterally normal heel strike and toe off. Resp Effort & Inspection: normal respiratory effort, able to speak in complete sentences, no cough, no respiratory distress and symmetric chest movement Back/Spine/Pelvis Cervical Spine: cervical ROM normal and Cervical spine tenderness Thoracic/Lumbar Spine: pain with thoraco-lumbar ROM, paraspinal muscle tenderness, thoraco-lumbar ROM limited, No thoracic spinal tenderness and No lumbar spinal tenderness Psych Appearance: grossly normal Mental Status: mental status grossly normal Speech and movement: Normal speech and movement present and Clear speech present Affect: normal affect Attitude: cooperative Thought process: Normal thought process present Thought content: Normal thought content present, suicidality (none), no hallucinations and No Depressive thoughts present Insight: Good insight present (Psych) Judgement: Good judgement present (Psych) Results Reviewed Results Reviewed: MR SPINE CERVICAL without CONTRAST 08/16/23 INDICATION: Postlaminectomy syndrome, not elsewhere classified. Pain for years. Bilateral hand numbness. History of fibromyalgia. TECHNIQUE: Unenhanced multiplanar, multisequence MR imaging of the cervical spine. COMPARISON: None Available. FINDINGS: Straightening of normal cervical lordosis. Mild loss of intervertebral disc space height and marginal osteophyte formation C4-C5 and C5-C6. Degenerative changes of the C1-C2 articulation and craniocervical junction otherwise of normal relationship. Cervical facet arthrosis. Prevertebral soft tissues of normal appearance. Examination through the cranial cervical junction showing it to be widely patent. Examination through the C2-C3 intervertebral level revealing facet arthrosis and uncovertebral degenerative changes. No significant central stenosis. Moderate RIGHT foraminal narrowing. Mild LEFT foraminal narrowing. Examination through the C3-C4 intervertebral level revealing facet arthrosis and uncovertebral degenerative changes. Moderate to severe bilateral foraminal narrowing. Examination through the C4-C5 intervertebral level revealing facet arthrosis with uncovertebral degenerative changes and posterior disc osteophyte. Effacement of the CSF. Mild cord flattening. No cord signal changes. Moderate RIGHT foraminal narrowing. Moderate to severe LEFT foraminal narrowing. Examination through the C5-C6 intervertebral level revealing facet arthrosis. Uncovertebral degenerative changes and posterior disc osteophyte. Effacement of ventral CSF. Mild cord flattening. No cord signal changes. Moderate RIGHT foraminal narrowing. Moderate to severe LEFT foraminal narrowing. Examination through the C6-C7 intervertebral level revealing facet arthrosis and uncovertebral degenerative changes. Small posterior disc osteophyte. No significant central stenosis. Moderate bilateral foraminal narrowing. Examination through the C7-T1 intervertebral level revealing facet arthrosis. No significant central stenosis or foraminal narrowing. IMPRESSION: Spondylotic changes and facet arthrosis. No findings of fracture or listhesis. No findings to suggest acute disc protrusion. Varying degrees of relative chronic appearing central stenosis and foraminal narrowing as detailed above. Note made of mild cord flattening of the chronic appearance at C4-C5 and C5-C6. No priors are available for comparison. MR THORACIC w + wo CONTRAST, MR SPINE LUMBAR w + wo CONTRAST 08/11/23 INDICATION: Mid to low back pain with pain and weakness in both legs. Postlaminectomy syndrome. Spondylosis with radiculopathy, lumbosacral region. TECHNIQUE: Unenhanced and enhanced multiplanar, multisequence MR imaging of the thoracic and lumbar spine. Dotarem 20 mL was administered intravenously. No contrast waste documented. COMPARISON: None. FINDINGS: The examination is slightly limited due to patient motion. MRI thoracic spine: Normal alignment is demonstrated. Vertebral heights are well maintained. Bone marrow signal is within normal limits, and no suspicious osseous lesion is identified. Prevertebral and paraspinal soft tissues are within normal limits. Thoracic cord demonstrates normal course, caliber, and signal characteristics. No epidural fluid collection or hematoma is identified. No area of abnormal enhancement is identified. There are small disc bulges at T6-7 and T8-9. No significant central canal stenosis is identified. Neural foramina are patent throughout. Visualized chest and abdomen are grossly unremarkable. MRI lumbar spine: Normal alignment is demonstrated. Vertebral heights are well maintained. Bone marrow signal is within normal limits, and no suspicious osseous lesion is identified. Conus medullaris is unremarkable. No area of abnormal enhancement is identified. Paraspinal soft tissues and visualized portions of the abdomen and pelvis are unremarkable. At L1-2 there is no significant disc herniation or protrusion. No central canal or neuroforaminal stenosis is demonstrated. At L2-3 there is no significant disc herniation or protrusion. No central canal or neuroforaminal stenosis is demonstrated. At L3-4 there is a small broad-based disc bulge as well as bilateral facet hypertrophy and thickening of the ligamentum flavum. This causes mild central canal stenosis, but no neuroforaminal narrowing. At L4-5 there is no significant disc herniation or protrusion. There is bilateral facet hypertrophy and thickening of the ligamentum flavum. This causes mild central canal stenosis, but no neuroforaminal narrowing. At L5-S1 there is no significant disc herniation or protrusion. There is bilateral facet hypertrophy. No central canal or neuroforaminal stenosis is demonstrated. IMPRESSION: 1. The examination is slightly limited due to patient motion. 2. Thoracic spine demonstrates small disc bulges at T6-7 and T8-9, but no significant central canal stenosis or nerve root compromise at any level. 3. Lumbar spine demonstrates mild central canal stenosis at L3-4 and L4-5. There is no significant neuroforaminal narrowing or nerve root compromise at any level. Assessment & Plan Assessment & Plan (1) Post-laminectomy syndrome: Code(s): M96.1 - Postlaminectomy syndrome, not elsewhere classified Category: Medical (2) Chronic low back pain: Code(s): M54.50 - Low back pain, unspecified; G89.29 - Other chronic pain Category: Medical (3) Lumbosacral spondylosis: Code(s): M47.817 - Spondylosis without myelopathy or radiculopathy, lumbosacral region Category: Medical (4) Fibromyalgia: Code(s): M79.7 - Fibromyalgia Category: Medical (5) Opiate analgesic contract exists: Code(s): Z79.891 - adjunct faculty for medical terminology (current) use of opiate analgesic Category: Medical (6) Disc disease, degenerative, cervical: Code(s): M50.30 - Other cervical disc degeneration, unspecified cervical region Category: Medical (7) Chronic left-sided lumbar radiculopathy: Code(s): M54.16 - Radiculopathy, lumbar region Category: Medical Plan Patient has shown accountability for her medication regimen and the pill count was accurate. The patient reported no noted side effects. There is no evidence of misuse, abuse or diversion at this time[facility] 10-325 mg QID prn with advanced date on 12/15/24. Patient has Narcan at home. Refill sent for increased dose of pregabalin and usual dose for Flexeril. Schedule Left L5-S1 TFESI with sedation and fluoroscopy for left sided radiculopathy pain. She also suffers from post-laminectomy syndrome and failed SCS implant in the past. If no relief with TFESI injection, patient will pursue Neurosurgical evaluation. Expectations, risks and benefits were reviewed. Patient is aware she will be contacted to schedule this procedure. All questions and concerns have been answered patient agreed. Follow-up in 4 weeks for pill count and sooner as needed. Medications: Changed From pregabalin 50 mg PO BID 30 days 60 caps 1RF pain G89.29 - Other chronic pain, M47.27 - Other spondylosis with radiculopathy, lumbosacral region, M54.50 - Low back pain, unspecified, M96.1 - Postlaminectomy syndrome, not elsewhere classified To pregabalin 75 mg PO BID 60 caps 0RF pain 30 days G89.29 - Other chronic pain, M47.27 - Other spondylosis with radiculopathy, lumbosacral region, M54.50 - Low back pain, unspecified, M96.1 - Postlaminectomy syndrome, not elsewhere classified Refilled hydrocodone-acetaminophen 10-325 mg Partial Fill upon patient request. 1 tab PO QID PRN 120 tabs 0RF severe pain (scale score 7-10) 30 days M25.561 - Pain in right knee, M25.562 - Pain in left knee, M47.27 - Other spondylosis with radiculopathy, lumbosacral region, M96.1 - Postlaminectomy syndrome, not elsewhere classified, Z79.891 - adjunct faculty for medical terminology (current) use of opiate analgesic cyclobenzaprine 10 mg PO BID PRN 45 tabs 1RF for muscle spasm M79.7 - Fibromyalgia, M96.1 - Postlaminectomy syndrome, not elsewhere classified Coding Level of Care Code Est Pt Level 4 (43653) Complex EM visit Add On G2211 Diagnoses Post-laminectomy syndrome M96.1 Chronic low back pain M54.50; G89.29 Lumbosacral spondylosis M47.817 Fibromyalgia M79.7 Opiate analgesic contract exists Z79.891 Disc disease, degenerative, cervical M50.30 Chronic left-sided lumbar radiculopathy M54.16
[2024-12-05 09:01] VITALS: BP 188/77; PULSE 101; O2SAT 96; BMI 47.4
== END 2024-12-05 09:38 | disposition home or self-care (01) ==
PROVIDERS: PCP Internal Medicine; Visit Provider Nurse Practitioner Family
DX: G89.29 Other chronic pain (principal); M96.1 Postlaminectomy syndrome, not elsewhere classified; M54.50 Low back pain, unspecified; Z79.891 Long term (current) use of opiate analgesic; M47.817 Spondylosis without myelopathy or radiculopathy, lumbosacral region; M79.7 Fibromyalgia; M50.30 Other cervical disc degeneration, unspecified cervical region; M54.16 Radiculopathy, lumbar region
CPT/HCPCS: 99214; G2211

== ENCOUNTER → 2024-12-05 08:24 | Outpatient (BNVA) | payer OTHER, SELFPAY | PROVIDERS: PCP Internal Medicine; Visit Provider Nurse Practitioner Family | DX: Z51.81 Encounter for therapeutic drug level monitoring (principal); M96.1 Postlaminectomy syndrome, not elsewhere classified; M54.50 Low back pain, unspecified; M47.817 Spondylosis without myelopathy or radiculopathy, lumbosacral region; M79.7 Fibromyalgia; M50.30 Other cervical disc degeneration, unspecified cervical region; M54.16 Radiculopathy, lumbar region; G89.29 Other chronic pain; Z79.891 Long term (current) use of opiate analgesic | CPT/HCPCS: 99212 ==

== ENCOUNTER 2025-01-02 09:00 | Outpatient (AMB) | payer OTHER, SELFPAY ==
--- NOTE | 2025-01-02 09:07 | MHC.OFFVIS ---
Vital Signs 01/02/25 09:11 Height 5 ft 7 in Weight 296 lb 4 oz BMI 46.4 BP 166/75 H Blood Pressure Location Rt brachial Position Sitting Pulse 97 Pulse Source Pulse Oximeter Pulse Oximetry (%) 98 Oxygen Delivery Method Room Air Intake Visit Reasons: Pill Count Intake Note: Cris comes in today for a pill count to hydrocodone-acetaminophen, patient should have 48 tablets and presents with 55 tablets which she last took today 01/02/25 at 8:45. Tone Artist Apprentice Required: No Accompanied by: Self / Same As Patient Allergies No Known Allergies Allergy (Verified 01/02/25 09:17) HPI Comments Details: Patient presents today for a pill count. Patient is supposed to have #48 Vicodin pills and presents with #55 pills. This demonstrates a responsible attitude in regards to her medication regimen. She reports adequate analgesia on her current regime of hydrocodone-acetaminophen 10-325 mg QID as needed with no noted side effects. Patient continues to endorse low back pain with spasming across her waistline and low back with chronic left radiculopathy in L5-S1 distribution. She is being scheduled for left L5-S1 TFESI which was recently approved. She requests this under sedation. Pain is present with most activities, walking, prolonged sitting or standing, lifting, twisting, sleep and cold weather. Previously discussed interventional treatments for axial, radicular and post-laminectomy pain syndrome. Patient reports increased back pain with activities, walking and exercises. Pain is rated at 5-6/10 left sided low back and left hip and leg pain. Denies any recent cough, cold, infection, fever or any other significant changes in medical history since last office visit. [facility] Medical History Fibromyalgia Polyarthralgia Follicular thyroid cancer Morbid obesity with BMI of 45.0-49.9, adult Anxiety PTSD (post-traumatic stress disorder) Chronic left-sided lumbar radiculopathy Numbness and tingling of both upper extremities Disc disease, degenerative, cervical Cervical radiculitis Chronic low back pain Lumbosacral spondylosis Right hip pain Bilateral knee pain Opiate analgesic contract exists Post-laminectomy syndrome Spondylosis of lumbosacral spine with radiculopathy Spinal cord stimulator status Bipolar 1 disorder, depressed Broken humerus Surgical History S/P ORIF (open reduction internal fixation) fracture Right humeral fracture H/O: hysterectomy H/O laminectomy Social History Patient Tobacco Use Status: Never used Tobacco Current occupational status: disabled Review of Systems Const All systems reviewed & are unremarkable except as noted in HPI and below Physical Exam Vital Signs: Last Vital Signs Pulse 97 01/02/25 09:11 BP 166/75 H 01/02/25 09:11 Pulse Ox 98 01/02/25 09:11 Oxygen Delivery Method Room Air 01/02/25 09:11 BMI result Body Mass Index 46.4 General: Appears afebrile. Alert and oriented. Mood and affect appropriate. Follows and participates in conversation appropriately. Respiratory effort is unlabored. No cough. Able to transition from sit to stand unassisted. Uses cane with ambulation. Ambulates with normal heel strike and toe off on the right, reports increased pain with heel/toe standing on the left. Resp Effort & Inspection: normal respiratory effort, able to speak in complete sentences, no cough, no respiratory distress and symmetric chest movement Back/Spine/Pelvis Cervical Spine: cervical ROM normal and Cervical spine tenderness Thoracic/Lumbar Spine: thoracic and lumbar spine normal to inspection, Thoracic/lumbar spine scar(s), Lasegue's sign positive on the left and localized, pain with thoraco-lumbar ROM, paraspinal muscle tenderness, thoraco-lumbar ROM limited, No thoracic spinal tenderness and lumbar spinal tenderness (L4-S1) Pelvis: buttock tenderness on the left Sacroiliac joints: bilaterally tender to palpation Extrem General: Yes capillary refill normal, Yes no clubbing, cyanosis or edema and Yes no calf tenderness Psych Appearance: grossly normal Mental Status: mental status grossly normal Speech and movement: Normal speech and movement present and Clear speech present Affect: normal affect Attitude: cooperative Thought process: Normal thought process present Thought content: Normal thought content present, suicidality (none), no hallucinations and No Depressive thoughts present Insight: Good insight present (Psych) Judgement: Good judgement present (Psych) Results Reviewed Results Reviewed: MR SPINE CERVICAL without CONTRAST 08/16/23 INDICATION: Postlaminectomy syndrome, not elsewhere classified. Pain for years. Bilateral hand numbness. History of fibromyalgia. TECHNIQUE: Unenhanced multiplanar, multisequence MR imaging of the cervical spine. COMPARISON: None Available. FINDINGS: Straightening of normal cervical lordosis. Mild loss of intervertebral disc space height and marginal osteophyte formation C4-C5 and C5-C6. Degenerative changes of the C1-C2 articulation and craniocervical junction otherwise of normal relationship. Cervical facet arthrosis. Prevertebral soft tissues of normal appearance. Examination through the cranial cervical junction showing it to be widely patent. Examination through the C2-C3 intervertebral level revealing facet arthrosis and uncovertebral degenerative changes. No significant central stenosis. Moderate RIGHT foraminal narrowing. Mild LEFT foraminal narrowing. Examination through the C3-C4 intervertebral level revealing facet arthrosis and uncovertebral degenerative changes. Moderate to severe bilateral foraminal narrowing. Examination through the C4-C5 intervertebral level revealing facet arthrosis with uncovertebral degenerative changes and posterior disc osteophyte. Effacement of the CSF. Mild cord flattening. No cord signal changes. Moderate RIGHT foraminal narrowing. Moderate to severe LEFT foraminal narrowing. Examination through the C5-C6 intervertebral level revealing facet arthrosis. Uncovertebral degenerative changes and posterior disc osteophyte. Effacement of ventral CSF. Mild cord flattening. No cord signal changes. Moderate RIGHT foraminal narrowing. Moderate to severe LEFT foraminal narrowing. Examination through the C6-C7 intervertebral level revealing facet arthrosis and uncovertebral degenerative changes. Small posterior disc osteophyte. No significant central stenosis. Moderate bilateral foraminal narrowing. Examination through the C7-T1 intervertebral level revealing facet arthrosis. No significant central stenosis or foraminal narrowing. IMPRESSION: Spondylotic changes and facet arthrosis. No findings of fracture or listhesis. No findings to suggest acute disc protrusion. Varying degrees of relative chronic appearing central stenosis and foraminal narrowing as detailed above. Note made of mild cord flattening of the chronic appearance at C4-C5 and C5-C6. No priors are available for comparison. MR THORACIC w + wo CONTRAST, MR SPINE LUMBAR w + wo CONTRAST 08/11/23 INDICATION: Mid to low back pain with pain and weakness in both legs. Postlaminectomy syndrome. Spondylosis with radiculopathy, lumbosacral region. TECHNIQUE: Unenhanced and enhanced multiplanar, multisequence MR imaging of the thoracic and lumbar spine. Dotarem 20 mL was administered intravenously. No contrast waste documented. COMPARISON: None. FINDINGS: The examination is slightly limited due to patient motion. MRI thoracic spine: Normal alignment is demonstrated. Vertebral heights are well maintained. Bone marrow signal is within normal limits, and no suspicious osseous lesion is identified. Prevertebral and paraspinal soft tissues are within normal limits. Thoracic cord demonstrates normal course, caliber, and signal characteristics. No epidural fluid collection or hematoma is identified. No area of abnormal enhancement is identified. There are small disc bulges at T6-7 and T8-9. No significant central canal stenosis is identified. Neural foramina are patent throughout. Visualized chest and abdomen are grossly unremarkable. MRI lumbar spine: Normal alignment is demonstrated. Vertebral heights are well maintained. Bone marrow signal is within normal limits, and no suspicious osseous lesion is identified. Conus medullaris is unremarkable. No area of abnormal enhancement is identified. Paraspinal soft tissues and visualized portions of the abdomen and pelvis are unremarkable. At L1-2 there is no significant disc herniation or protrusion. No central canal or neuroforaminal stenosis is demonstrated. At L2-3 there is no significant disc herniation or protrusion. No central canal or neuroforaminal stenosis is demonstrated. At L3-4 there is a small broad-based disc bulge as well as bilateral facet hypertrophy and thickening of the ligamentum flavum. This causes mild central canal stenosis, but no neuroforaminal narrowing. At L4-5 there is no significant disc herniation or protrusion. There is bilateral facet hypertrophy and thickening of the ligamentum flavum. This causes mild central canal stenosis, but no neuroforaminal narrowing. At L5-S1 there is no significant disc herniation or protrusion. There is bilateral facet hypertrophy. No central canal or neuroforaminal stenosis is demonstrated. IMPRESSION: 1. The examination is slightly limited due to patient motion. 2. Thoracic spine demonstrates small disc bulges at T6-7 and T8-9, but no significant central canal stenosis or nerve root compromise at any level. 3. Lumbar spine demonstrates mild central canal stenosis at L3-4 and L4-5. There is no significant neuroforaminal narrowing or nerve root compromise at any level. Assessment & Plan Assessment & Plan (1) Post-laminectomy syndrome: Code(s): M96.1 - Postlaminectomy syndrome, not elsewhere classified Category: Medical (2) Chronic low back pain: Code(s): M54.50 - Low back pain, unspecified; G89.29 - Other chronic pain Category: Medical (3) Lumbosacral spondylosis: Code(s): M47.817 - Spondylosis without myelopathy or radiculopathy, lumbosacral region Category: Medical (4) Fibromyalgia: Code(s): M79.7 - Fibromyalgia Category: Medical (5) Opiate analgesic contract exists: Code(s): Z79.891 - watermelon inspector (current) use of opiate analgesic Category: Medical (6) Disc disease, degenerative, cervical: Code(s): M50.30 - Other cervical disc degeneration, unspecified cervical region Category: Medical (7) Chronic left-sided lumbar radiculopathy: Code(s): M54.16 - Radiculopathy, lumbar region Category: Medical Plan Patient has shown accountability for her medication regimen and the pill count was accurate. The patient reported no noted side effects. There is no evidence of misuse, abuse or diversion at this time. TabSprintT reviewed. Script for hydrocodone-acetaminophen 10-325 mg QID prn with advanced date on 01/11/25. Patient has Narcan at home. Continue pregabalin and Flexeril. Patient also requests topical cream through compounding pharmacy for current pain generators. Scripts provided for medications per patient's request. Proceed with Left L5-S1 TFESI with sedation and fluoroscopy for left sided radiculopathy pain as planned. Patient also suffers from post-laminectomy syndrome and failed SCS implant in the past. If no relief with TFESI injection, patient will pursue Neurosurgical evaluation. All questions and concerns have been answered patient agreed. Follow-up in 4-5 weeks for pill count and sooner as needed. Medications: New cream base no.171 (bulk) (CompoundMax Base cream) apply 1 (one) pump 3-5 times daily to painful areas as needed 240 grams 1RF pain G89.29 - Other chronic pain, M47.817 - Spondylosis without myelopathy or radiculopathy, lumbosacral region, M50.30 - Other cervical disc degeneration, unspecified cervical region, M54.50 - Low back pain, unspecified, M79.7 - Fibromyalgia, M96.1 - Postlaminectomy syndrome, not elsewhere classified Refilled hydrocodone-acetaminophen 10-325 mg Partial Fill upon patient request. 1 tab PO QID 30 days PRN 120 tabs 0RF severe pain (scale score 7-10) M25.561 - Pain in right knee, M25.562 - Pain in left knee, M47.27 - Other spondylosis with radiculopathy, lumbosacral region, M96.1 - Postlaminectomy syndrome, not elsewhere classified, Z79.891 - watermelon inspector (current) use of opiate analgesic cyclobenzaprine 10 mg PO BID PRN 45 tabs 3RF for muscle spasm M79.7 - Fibromyalgia, M96.1 - Postlaminectomy syndrome, not elsewhere classified pregabalin 75 mg PO BID 30 days 60 caps 1RF pain G89.29 - Other chronic pain, M47.27 - Other spondylosis with radiculopathy, lumbosacral region, M54.50 - Low back pain, unspecified, M96.1 - Postlaminectomy syndrome, not elsewhere classified Coding Level of Care Code Est Pt Level 4 (03947) Complex EM visit Add On G2211 Diagnoses Post-laminectomy syndrome M96.1 Chronic low back pain M54.50; G89.29 Lumbosacral spondylosis M47.817 Fibromyalgia M79.7 Opiate analgesic contract exists Z79.891 Disc disease, degenerative, cervical M50.30 Chronic left-sided lumbar radiculopathy M54.16
[2025-01-02 09:11] VITALS: BP 166/75; PULSE 97; O2SAT 98; BMI 46.4
--- OUTSIDE RECORDS SUMMARY | 2025-01-02 09:53 | XMS_ITS | Clinical Summary ---
Author Organization [facility] Address [address] [place] [phone] Phone Care Team Providers Care Jewel Bearing Polisher Name Role Phone Melissa Pennington MD Primary Care Provider [phone] Allergies No known active allergies Medications pregabalin (LYRICA) 50 mg capsule Take 1 capsule (50 mg total) by mouth 2 (two) times a day. Active fluticasone HFA (FLOVENT HFA) 220 mcg/actuation inhaler Inhale 1 puff by mouth 2 (two) times a day. Rinse mouth with water after use to reduce aftertaste and incidence of candidiasis. Do not swallow. Active cyclobenzaprine (FLEXERIL) 10 mg tablet Take 1 tablet (10 mg total) by mouth 1 (one) time each day. Active benzonatate (TESSALON) 100 mg capsule Take 1 capsule (100 mg total) by mouth 2 (two) times a day. Do not crush or chew. Active lamoTRIgine (LaMICtal) 150 mg tablet Take 1 tablet (150 mg total) by mouth 2 (two) times a day. Active montelukast (SINGULAIR) 10 mg tablet Take 1 tablet (10 mg total) by mouth at bedtime. Active citalopram (CeleXA) 20 mg tablet Take 1 tablet (20 mg total) by mouth 1 (one) time each day. Active ipratropium-alb uteroL (COMBIVENT RESPIMAT) 20-100 mcg/actuation inhaler Inhale 1 puff by mouth 4 (four) times a day. Active HYDROcodone-jeffery taminophen (NORCO) 10-325 mg per tablet 1 tablet every 6 (six) hours if needed for severe pain. Active Active Problems Problem Noted Date Diagnosed Date Malignant neoplasm of thyroid gland 09/27/2024 Surgical History Surgery Date Site/Laterality Comments THYROID SURGERY R LOBE ORIF HUMERUS FRACTURE X5 WITH HARDWARE SPINAL CORD STIMULATOR IMPLANT SPINAL CORD STIMULATOR REMOVAL HYSTERECTOMY BACK SURGERY BACK SURGERY MULTIPLE Medical History Medical History Date Comments Cancer (CMS/HCC) THYROID Bipolar 1 disorder (CMS/HCC) Anxiety Depression Fibromyalgia Arthritis SPINE COPD (chronic obstructive pulmonary disease) (CM S/HCC) Asthma Disease of thyroid gland Social History Tobacco Use Types Packs/Day Years Used Date Smoking Tobacco: Never Smokeless Tobacco: Never Tobacco Cessation:Counseling Given: Not Answered Interpersonal Safety Answer Date Record ed Physical Abuse 09/27/2024 Verbal Abuse 09/27/2024 Comments No Sex and Gender Information Value Date Recorded Sex Assigned at Female 09/27/2024 10:46 AM EST Legal Sex Female 12:04 PM EST Gender Identity Female 09/27/2024 10:46 AM EST Sexual Orientation Straight 09/27/2024 10 :46 AM EST Obstetrics History Last Filed Vital Signs Vital Sign Reading Time Taken Comments Blood Pressure 151/72 09/28/2024 7:58 AM EST Pulse 83 09/28/2024 7:58 AM EST Temperature 36.6 ??C (97.8 ??F) 09/28/2024 7:58 AM ES T Respiratory Rate 16 09/28/2024 7:58 AM EST Oxygen Saturation 97% 09/28/2024 7:58 AM EST Inhaled Oxygen Concentration - - Weight 132 kg (290 lb) 09/27/2024 11:27 AM EST Height 170.2 cm (5' 7 ) 09/27/2024 11:27 AM EST Body Mass Index 45.42 09/27/2024 11:27 AM EST Plan of Treatment Health Maintenance Due Date Last Done Comments Breast Cancer Screening 1965 Hepatitis A Vaccines (1 of 2 - Risk 2-dose series) 1984 Hepatitis B Vaccines (1 of 3 - 19+ 3-dose series) 1984 Pneumococcal Vaccine: 50+ Years (1 of 2 - PCV) 1984 Pneumococcal Vaccine: Pediatrics (0 to 5 Years) and At-Risk Patients (6 to 64 Years) (1 of 2 - PCV) 1984 Zoster Vaccines (1 of 2) 1984 Cervical Cancer Screening: P ap Smear 1986 COVID-19 Vaccine (2023-2 5 season) 2024 10/14/2021, 01/15/2021, 12/18/2020 Influenza Vaccine (#1) 2024 3, 08/29/2021, 08/26/2020 Cholesterol Screening (Lipid Panel) 09/14/2024 Colorectal Cancer Screening: Colonoscopy 09/14/2024 Depression Screening 09/14/2024 HIV Screening 09/14/2024 Hepatitis C Screening 09/14/2024 Social Influencers of Health Screening 09/14/2024 DTaP,Tdap,and Td Vaccines (2 - Td or Tdap) 08/26/2030 08/26/2020 RSV Immunization Patients 60 + Years Old (1 - 1-dose 75+ series) 2040 HIB Vaccines Aged Out No longer eligi ble based on patient's age to complete this topic HPV Vaccines Aged Out No longer eligi ble based on patient's age to complete this topic IPV Vaccines Aged Out No longer eligi ble based on patient's age to complete this topic MMR Vaccines Aged Out No longer eligi ble based on patient's age to complete this topic Meningococcal ACWY Vaccine Aged Out N o longer eligible based on patient's age to complete this topic Meningococcal B Vacine Aged Out No lo nger eligible based on patient's age to complete this topic RSV Immunization Patients Under 20 months Aged Out No longer eligible b ased on patient's age to complete this topic Varicella Vaccines Aged Out No longer eligible based on patient's age to complete this topic Medical Devices Implanted Type Area Bundle Cutter Device Identifier Shelf Expiration Date Model / Serial / Lot Drsg Hemostat 4x8in Abs Ster Surgicel - Sn/A - [id number] Implanted:Qty: 1 on 09/27/2024 by Toby Carson MD at [facility] Hemostasis Left: Thyroid [employer] 12/23/20271951 / N/A / N/A Plates Implants Right: Arm Insurance MEDICAID ADVANTAGE Advance Directives * Full Code - Default (Latest Code Status on File) Date Activated Date Inactivated Comments 09/27/2024 3:20 PM 09/28/2024 5:33 PM This is orde r is used when code status has not been discussed with the patient, or code status is otherwise unknown/unconfirmed To update the patient's code status, place a code status order. Do not modify or discontinue any currently active code status orders. Care Teams Jewel Bearing Polisher Relationship Specialty Start Date End Date Melissa Pennington MD [address] [place] [id number] PCP - General Internal Medicine 09/25/24
--- OUTSIDE RECORDS SUMMARY | 2025-01-02 09:53 | XMS_ITS | Patient Health Record ---
Author Organization [facility] Address [address] [place] [address] Care Team Providers Care Sediment Remediation Consultant Name Role Phone Osbaldo Domínguez DO Primary Care Provider STEPHY Caballero Unavailable [phone] Reason For Referral No Information Social History Tobacco Use: Social History Observation Description Date Details (start date - stop date) Never Smoker NA - NA Smoking MU Question Answer Notes Are you a: nonsmoker Additional Findings: Tobacco Non-User Current no n-smoker Alcohol MU Question Answer Notes Interpretation Negative Problems Problem Type SNOMED Code ICD Code Onset Dates Problem Status W/U Status Risk Notes Problem Disorder of kidney and/or ureter (424480427) 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 [place] [address] [id number] Cris Wallace Self - patient is the insured Medical (General) History Medical History History ICD Code asthma COPD degenerative disc disease fibromyalgia bipolar disorder Surgical History Surgery Date(Month/Year) back surgery 2009 appendectomy 2010 neuro stimulator 2014 hysterectomy 2009?
== END 2025-01-02 09:29 | disposition home or self-care (01) ==
LOC: HO.PMC 09:01
PROVIDERS: PCP Internal Medicine; Visit Provider Nurse Practitioner Family
DX: M96.1 Postlaminectomy syndrome, not elsewhere classified (principal); M54.50 Low back pain, unspecified; G89.29 Other chronic pain; M47.817 Spondylosis without myelopathy or radiculopathy, lumbosacral region; M79.7 Fibromyalgia; Z79.891 Long term (current) use of opiate analgesic; M50.30 Other cervical disc degeneration, unspecified cervical region; M54.16 Radiculopathy, lumbar region
CPT/HCPCS: 99214; G2211

== ENCOUNTER → 2025-01-02 09:00 | Outpatient (BNVA) | payer OTHER, SELFPAY | PROVIDERS: PCP Internal Medicine; Visit Provider Nurse Practitioner Family | DX: Z51.81 Encounter for therapeutic drug level monitoring (principal); M96.1 Postlaminectomy syndrome, not elsewhere classified; M54.50 Low back pain, unspecified; M47.817 Spondylosis without myelopathy or radiculopathy, lumbosacral region; M79.7 Fibromyalgia; M50.30 Other cervical disc degeneration, unspecified cervical region; M54.16 Radiculopathy, lumbar region; G89.29 Other chronic pain; Z79.891 Long term (current) use of opiate analgesic | CPT/HCPCS: 99212 ==

== ENCOUNTER 2025-02-06 08:50 | Outpatient (AMB) | payer OTHER, SELFPAY ==
--- NOTE | 2025-02-06 08:52 | MHC.OFFVIS ---
Vital Signs 02/06/25 09:55 Height 5 ft 7 in Weight 294 lb 6 oz BMI 46.1 BP 182/74 H Blood Pressure Location Rt brachial Position Sitting Pulse 97 Pulse Source Pulse Oximeter Pulse Oximetry (%) 96 Oxygen Delivery Method Room Air Intake Visit Reasons: Pill Count Intake Note: Cris comes in today for a pill count to hydrocodone-acetaminophen, patient should have 20 tablets and presents with 25 tablets which she last took today 02/06/25 at 7:30am. 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 Patient is supposed to have #20 Vicodin pills and presents with #25 pills. This demonstrates a responsible attitude in regards to her medication regimen. She reports adequate analgesia on her current regime of hydrocodone-acetaminophen 10-325 mg QID as needed with no noted side effects. Patient continues to endorse low back pain with spasming across her waistline and low back with chronic left radiculopathy in L5-S1 distribution. She is pending for left L5-S1 TFESI which was recently approved but would like to wait until upcoming Neurosurgical evaluation next week at [facility]. Pain is present with most activities, walking, prolonged sitting or standing, lifting, twisting, sleep and cold weather. Previously discussed interventional treatments for axial, radicular and post-laminectomy pain syndrome. Patient reports increased back pain with activities, walking and exercises. Pain is rated at 4-6/10 left sided low back and left hip and leg pain. Denies any recent cough, cold, infection, fever or any other significant changes in medical history since last office visit. [facility] Medical History Fibromyalgia Polyarthralgia Follicular thyroid cancer Morbid obesity with BMI of 45.0-49.9, adult Anxiety PTSD (post-traumatic stress disorder) Chronic left-sided lumbar radiculopathy Numbness and tingling of both upper extremities Disc disease, degenerative, cervical Cervical radiculitis Chronic low back pain Lumbosacral spondylosis Right hip pain Bilateral knee pain Opiate analgesic contract exists Post-laminectomy syndrome Spondylosis of lumbosacral spine with radiculopathy Spinal cord stimulator status Bipolar 1 disorder, depressed Broken humerus Surgical History S/P ORIF (open reduction internal fixation) fracture Right humeral fracture H/O: hysterectomy H/O laminectomy Social History Patient Tobacco Use Status: Never used Tobacco Current occupational status: disabled Review of Systems Const All systems reviewed & are unremarkable except as noted in HPI and below Physical Exam General: Appears afebrile. Alert and oriented. Mood and affect appropriate. Follows and participates in conversation appropriately. Respiratory effort is unlabored. No cough. Able to transition from sit to stand unassisted. Uses cane with ambulation. Ambulates with normal heel strike and toe off on the right, reports increased pain with heel/toe standing on the left. Resp Effort & Inspection: normal respiratory effort, able to speak in complete sentences, no cough, no respiratory distress and symmetric chest movement Back/Spine/Pelvis Cervical Spine: cervical ROM normal and Cervical spine tenderness Thoracic/Lumbar Spine: thoracic and lumbar spine normal to inspection, Thoracic/lumbar spine scar(s), Lasegue's sign positive (L5-S1 distribution) on the left and localized, pain with thoraco-lumbar ROM, paraspinal muscle tenderness, thoraco-lumbar ROM limited, No thoracic spinal tenderness and lumbar spinal tenderness (L4-S1) Pelvis: buttock tenderness on the left Sacroiliac joints: bilaterally tender to palpation Psych Appearance: grossly normal Mental Status: mental status grossly normal Speech and movement: Normal speech and movement present and Clear speech present Affect: normal affect Attitude: cooperative Thought process: Normal thought process present Thought content: Normal thought content present, suicidality (none), no hallucinations and No Depressive thoughts present Insight: Good insight present (Psych) Judgement: Good judgement present (Psych) Results Reviewed Results Reviewed: MR SPINE CERVICAL without CONTRAST 08/16/23 INDICATION: Postlaminectomy syndrome, not elsewhere classified. Pain for years. Bilateral hand numbness. History of fibromyalgia. TECHNIQUE: Unenhanced multiplanar, multisequence MR imaging of the cervical spine. COMPARISON: None Available. FINDINGS: Straightening of normal cervical lordosis. Mild loss of intervertebral disc space height and marginal osteophyte formation C4-C5 and C5-C6. Degenerative changes of the C1-C2 articulation and craniocervical junction otherwise of normal relationship. Cervical facet arthrosis. Prevertebral soft tissues of normal appearance. Examination through the cranial cervical junction showing it to be widely patent. Examination through the C2-C3 intervertebral level revealing facet arthrosis and uncovertebral degenerative changes. No significant central stenosis. Moderate RIGHT foraminal narrowing. Mild LEFT foraminal narrowing. Examination through the C3-C4 intervertebral level revealing facet arthrosis and uncovertebral degenerative changes. Moderate to severe bilateral foraminal narrowing. Examination through the C4-C5 intervertebral level revealing facet arthrosis with uncovertebral degenerative changes and posterior disc osteophyte. Effacement of the CSF. Mild cord flattening. No cord signal changes. Moderate RIGHT foraminal narrowing. Moderate to severe LEFT foraminal narrowing. Examination through the C5-C6 intervertebral level revealing facet arthrosis. Uncovertebral degenerative changes and posterior disc osteophyte. Effacement of ventral CSF. Mild cord flattening. No cord signal changes. Moderate RIGHT foraminal narrowing. Moderate to severe LEFT foraminal narrowing. Examination through the C6-C7 intervertebral level revealing facet arthrosis and uncovertebral degenerative changes. Small posterior disc osteophyte. No significant central stenosis. Moderate bilateral foraminal narrowing. Examination through the C7-T1 intervertebral level revealing facet arthrosis. No significant central stenosis or foraminal narrowing. IMPRESSION: Spondylotic changes and facet arthrosis. No findings of fracture or listhesis. No findings to suggest acute disc protrusion. Varying degrees of relative chronic appearing central stenosis and foraminal narrowing as detailed above. Note made of mild cord flattening of the chronic appearance at C4-C5 and C5-C6. No priors are available for comparison. MR THORACIC w + wo CONTRAST, MR SPINE LUMBAR w + wo CONTRAST 08/11/23 INDICATION: Mid to low back pain with pain and weakness in both legs. Postlaminectomy syndrome. Spondylosis with radiculopathy, lumbosacral region. TECHNIQUE: Unenhanced and enhanced multiplanar, multisequence MR imaging of the thoracic and lumbar spine. Dotarem 20 mL was administered intravenously. No contrast waste documented. COMPARISON: None. FINDINGS: The examination is slightly limited due to patient motion. MRI thoracic spine: Normal alignment is demonstrated. Vertebral heights are well maintained. Bone marrow signal is within normal limits, and no suspicious osseous lesion is identified. Prevertebral and paraspinal soft tissues are within normal limits. Thoracic cord demonstrates normal course, caliber, and signal characteristics. No epidural fluid collection or hematoma is identified. No area of abnormal enhancement is identified. There are small disc bulges at T6-7 and T8-9. No significant central canal stenosis is identified. Neural foramina are patent throughout. Visualized chest and abdomen are grossly unremarkable. MRI lumbar spine: Normal alignment is demonstrated. Vertebral heights are well maintained. Bone marrow signal is within normal limits, and no suspicious osseous lesion is identified. Conus medullaris is unremarkable. No area of abnormal enhancement is identified. Paraspinal soft tissues and visualized portions of the abdomen and pelvis are unremarkable. At L1-2 there is no significant disc herniation or protrusion. No central canal or neuroforaminal stenosis is demonstrated. At L2-3 there is no significant disc herniation or protrusion. No central canal or neuroforaminal stenosis is demonstrated. At L3-4 there is a small broad-based disc bulge as well as bilateral facet hypertrophy and thickening of the ligamentum flavum. This causes mild central canal stenosis, but no neuroforaminal narrowing. At L4-5 there is no significant disc herniation or protrusion. There is bilateral facet hypertrophy and thickening of the ligamentum flavum. This causes mild central canal stenosis, but no neuroforaminal narrowing. At L5-S1 there is no significant disc herniation or protrusion. There is bilateral facet hypertrophy. No central canal or neuroforaminal stenosis is demonstrated. IMPRESSION: 1. The examination is slightly limited due to patient motion. 2. Thoracic spine demonstrates small disc bulges at T6-7 and T8-9, but no significant central canal stenosis or nerve root compromise at any level. 3. Lumbar spine demonstrates mild central canal stenosis at L3-4 and L4-5. There is no significant neuroforaminal narrowing or nerve root compromise at any level. Assessment & Plan Assessment & Plan (1) Post-laminectomy syndrome: Code(s): M96.1 - Postlaminectomy syndrome, not elsewhere classified Category: Medical (2) Chronic low back pain: Code(s): M54.50 - Low back pain, unspecified; G89.29 - Other chronic pain Category: Medical (3) Lumbosacral spondylosis: Code(s): M47.817 - Spondylosis without myelopathy or radiculopathy, lumbosacral region Category: Medical (4) Fibromyalgia: Code(s): M79.7 - Fibromyalgia Category: Medical (5) Opiate analgesic contract exists: Code(s): Z79.891 - termite helper (current) use of opiate analgesic Category: Medical (6) Disc disease, degenerative, cervical: Code(s): M50.30 - Other cervical disc degeneration, unspecified cervical region Category: Medical (7) Chronic left-sided lumbar radiculopathy: Code(s): M54.16 - Radiculopathy, lumbar region Category: Medical (8) Muscle spasm: Code(s): M62.838 - Other muscle spasm Category: Medical Plan Patient has shown accountability for her medication regimen and the pill count was accurate. The patient reported no noted side effects. There is no evidence of misuse, abuse or diversion at this time. [facility] reviewed. Script for hydrocodone-acetaminophen 10-325 mg QID prn with advanced date on 02/10/25. Patient has Narcan at home. Continue pregabalin and Flexeril. Patient also requests topical cream through compounding pharmacy for current pain generators. Scripts provided for medications per patient's request. She requests muscle relaxant to use during the day as cyclobenzaprine is only taken at bedtime due to partial drowsiness effect. Script sent for methocarbamol, side effects and precautions were discussed with patient. Pending Left L5-S1 TFESI with sedation and fluoroscopy for left sided radiculopathy pain until Neurosurgical re-evaluation next week with Dr. Rodriguez at [facility]. Patient also suffers from post-laminectomy syndrome and failed SCS implant in the past. All questions and concerns have been answered patient agreed. Follow-up in 4-5 weeks for pill count and sooner as needed. Medications: New methocarbamol 750 mg PO BID PRN 60 tabs 0RF muscle spasm G89.29 - Other chronic pain, M54.50 - Low back pain, unspecified, M62.838 - Other muscle spasm, M79.7 - Fibromyalgia Refilled hydrocodone-acetaminophen 10-325 mg Partial Fill upon patient request. 1 tab PO QID 30 days PRN 120 tabs 0RF severe pain (scale score 7-10) M25.561 - Pain in right knee, M25.562 - Pain in left knee, M47.27 - Other spondylosis with radiculopathy, lumbosacral region, M96.1 - Postlaminectomy syndrome, not elsewhere classified, Z79.891 - intermediate (current) use of opiate analgesic Coding Level of Care Code Est Pt Level 4 (69635) Complex EM visit Add On G2211 Diagnoses Post-laminectomy syndrome M96.1 Chronic low back pain M54.50; G89.29 Lumbosacral spondylosis M47.817 Fibromyalgia M79.7 Opiate analgesic contract exists Z79.891 Disc disease, degenerative, cervical M50.30 Chronic left-sided lumbar radiculopathy M54.16 Muscle spasm M62.838
--- OUTSIDE RECORDS SUMMARY | 2025-02-06 09:18 | XMS_ITS | Patient Health Record ---
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 [place] [address] [id number] Cris Wallace Self - patient is the insured Medical (General) History Medical History History ICD Code asthma COPD degenerative disc disease fibromyalgia bipolar disorder Surgical History Surgery Date(Month/Year) back surgery 2009 appendectomy 2010 neuro stimulator 2014 hysterectomy 2009?
--- OUTSIDE RECORDS SUMMARY | 2025-02-06 09:18 | XMS_ITS | Clinical Summary ---
Author Organization [facility] Address [address] [place] [id number] Phone Care Team Providers Care Interlibrary Loan Specialist Name Role Phone Melissa Pennington MD Primary Care Provider [phone] Allergies No known active allergies Medications pregabalin [...] Noted Date Diagnosed Date Malignant neoplasm of thyroi d gland ([facility] V24, [facility] V28) 09/27/2024 Surgical History Surgery Date Site/Laterality Comments THYROID SURGERY R LOBE ORIF HUMERUS FRACTURE X5 WITH HARDWARE SPINAL CORD STIMULATOR IMPLANT SPINAL CORD STIMULATOR REMOVAL HYSTERECTOMY BACK SURGERY BACK SURGERY MULTIPLE Medical History Medical History Date Comments Cancer ([facility] V24, [facility] V28) THYROID Bipolar 1 disorder ([facility] V24, [facility] V28) Anxiety Depression Fibromyalgia Arthritis SPINE COPD (chronic obstructive pulmonary disease) ([facility] V24, [facility] V28) Asthma Disease of thyroid gland Social History [...] (2023-2 5 season) 2024 10/14/2021, 01/15/2021, 12/18/2020 Cholesterol Screening (Lipid Panel) 09/14/2024 Colorectal Cancer Screening: Colonoscopy 09/14/2024 Depression Screening 09/14/2024 HIV Screening 09/14/2024 Hepatitis C Screening 09/14/2024 Social Influencers of Health Screening 09/14/2024 Influenza Vaccine (Season Ended) 2025 09/22/2023, 08/29/2021, 08/26/2020 DTaP,Tdap,and Td Vaccines (2 - Td or Tdap) 08/26/2030 08/26/2020 RSV Immunization Adult Patients (1 - 1-dose 75+ series) 2040 HIB [...] age to complete this topic Meningococcal B Vaccine Aged Out No l onger eligible based on patient's age to complete this topic RSV Immunization Patients Under 20 months Aged Out No longer eligible b ased on patient's age to complete this topic Varicella Vaccines Aged Out No longer eligible based on patient's age to complete this topic Medical Devices Implanted Type Area Turning Machine Set Up Operator Device Identifier Shelf Expiration Date Model / Serial / Lot Drsg Hemostat 4x8in Abs Ster Surgicel - Sn/A - [id number] Implanted:Qty: 1 on 09/27/2024 by Toby Carson MD at [facility] Hemostasis Left: Thyroid [employer] 12/23/2027 1952 / N/A / N/A Plates Implants Right: Arm [place] [address] [place] [address] MEDICAID ADVANTAGE Advance Directives * Full Code [...] currently active code status orders. Care Teams Interlibrary Loan Specialist Relationship Specialty Start Date End Date Melissa Pennington MD [address] [place] [address] PCP - General Internal Medicine 09/25/24
[2025-02-06 09:55] VITALS: BP 182/74; PULSE 97; O2SAT 96; BMI 46.1
== END 2025-02-06 09:13 | disposition home or self-care (01) ==
LOC: HO.PMC 08:51
PROVIDERS: PCP Internal Medicine; Visit Provider Nurse Practitioner Family
DX: M96.1 Postlaminectomy syndrome, not elsewhere classified (principal); M54.50 Low back pain, unspecified; G89.29 Other chronic pain; M47.817 Spondylosis without myelopathy or radiculopathy, lumbosacral region; M79.7 Fibromyalgia; Z79.891 Long term (current) use of opiate analgesic; M50.30 Other cervical disc degeneration, unspecified cervical region; M54.16 Radiculopathy, lumbar region; M62.838 Other muscle spasm
CPT/HCPCS: 99214; G2211

== ENCOUNTER → 2025-02-06 08:50 | Outpatient (BNVA) | payer OTHER, SELFPAY | PROVIDERS: PCP Internal Medicine; Visit Provider Nurse Practitioner Family | DX: M96.1 Postlaminectomy syndrome, not elsewhere classified (principal); M54.50 Low back pain, unspecified; G89.29 Other chronic pain; M47.817 Spondylosis without myelopathy or radiculopathy, lumbosacral region; M79.7 Fibromyalgia; M50.30 Other cervical disc degeneration, unspecified cervical region; M54.16 Radiculopathy, lumbar region; M62.838 Other muscle spasm; Z51.81 Encounter for therapeutic drug level monitoring; Z79.891 Long term (current) use of opiate analgesic | CPT/HCPCS: 99212 ==

== ENCOUNTER 2025-03-06 08:33 | Outpatient (AMB) | payer OTHER, SELFPAY ==
--- NOTE | 2025-03-06 08:35 | A.OFFVIS_ITS ---
Vital Signs 03/06/25 08:44 Height 5 ft 7 in Weight 292 lb BMI 45.7 BP 166/73 H Blood Pressure Location Rt brachial Position Sitting Pulse 95 Pulse Source Pulse Oximeter Pulse Oximetry (%) 98 Oxygen Delivery Method Room Air Intake Visit Reasons: Pill count Intake Note: Cris comes in today for a pill count to hydrocodone-acetaminophen, patient should have 32 tablets and presents with 34 tablets which she last took today 03/06/25 at 7am. 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 Patient is supposed to have #32 Vicodin pills and presents with #34 pills. This demonstrates a responsible attitude in regards to her medication regimen. She reports adequate analgesia on her current regime of hydrocodone-acetaminophen 10-325 mg QID as needed with no noted side effects. Patient completed lumbar spine MRI at [place] yesterday and has upcoming follow up with Dr. Mackenzie, Neurosurgery at [facility] for chronic left sided radiculopathy. Previously discussed interventional treatments for axial, radicular and post-laminectomy pain syndrome. Patient reports increased back pain with activities, walking and exercises. Pain is rated at 4/10 left sided low back and left hip and leg pain and widespread body pain with muscle stiffness and spasms which she attributes to fibromyalgia. Denies any recent cough, cold, infection, fever or any other significant changes in medical history since last office visit. [facility] Medical History Fibromyalgia Polyarthralgia Follicular thyroid cancer Morbid obesity with BMI of 45.0-49.9, adult Anxiety PTSD (post-traumatic stress disorder) Chronic left-sided lumbar radiculopathy Numbness and tingling of both upper extremities Disc disease, degenerative, cervical Cervical radiculitis Chronic low back pain Lumbosacral spondylosis Right hip pain Bilateral knee pain Opiate analgesic contract exists Post-laminectomy syndrome Spondylosis of lumbosacral spine with radiculopathy Spinal cord stimulator status Bipolar 1 disorder, depressed Broken humerus Surgical History S/P ORIF (open reduction internal fixation) fracture Right humeral fracture H/O: hysterectomy H/O laminectomy Social History Patient Tobacco Use Status: Never used Tobacco Current occupational status: disabled Review of Systems Const All systems reviewed & are unremarkable except as noted in HPI and below Physical Exam Vital Signs: Last Vital Signs Pulse 95 03/06/25 08:44 BP 166/73 H 03/06/25 08:44 Pulse Ox 98 03/06/25 08:44 Oxygen Delivery Method Room Air 03/06/25 08:44 BMI result Body Mass Index 45.7 General: Appears afebrile. Alert and oriented. Mood and affect appropriate. Follows and participates in conversation appropriately. Respiratory effort is unlabored. No cough. Able to transition from sit to stand unassisted. Ambulates with normal heel strike and toe off bilaterally. Resp Effort & Inspection: normal respiratory effort, able to speak in complete sentences, no cough and no respiratory distress General: Yes no CVA tenderness Back/Spine/Pelvis Other: Lumbar extension reproduces moderate pain. Flexion is intact and reproduces mild pain. Multiple widespread TTPs 16/16 bilaterally, including upper and lower extremities. Back: no CVA tenderness Cervical Spine: cervical ROM normal, cervical muscular tenderness and Cervical spine tenderness Thoracic/Lumbar Spine: thoracic and lumbar spine normal to inspection, Thoracic/lumbar spine scar(s), Lasegue's sign positive (L5-S1 distribution) on the left and diffuse, pain with thoraco-lumbar ROM, paraspinal muscle tenderness, thoraco-lumbar ROM limited, No thoracic spinal tenderness and lumbar spinal tenderness (L4-S1) Pelvis: buttock tenderness on the left Sacroiliac joints: bilaterally tender to palpation Extrem General: Yes capillary refill normal, Yes no clubbing, cyanosis or edema and Yes no calf tenderness Psych Appearance: grossly normal Mental Status: mental status grossly normal Speech and movement: Normal speech and movement present and Clear speech present Affect: normal affect Attitude: cooperative Thought process: Normal thought process present Thought content: Normal thought content present, suicidality (none), no hallucinations and Depressive thoughts present Insight: Good insight present (Psych) Judgement: Good judgement present (Psych) Results Reviewed Results Reviewed: MR SPINE CERVICAL without CONTRAST 08/16/23 INDICATION: Postlaminectomy syndrome, not elsewhere classified. Pain for years. Bilateral hand numbness. History of fibromyalgia. TECHNIQUE: Unenhanced multiplanar, multisequence MR imaging of the cervical spine. COMPARISON: None Available. FINDINGS: Straightening of normal cervical lordosis. Mild loss of intervertebral disc space height and marginal osteophyte formation C4-C5 and C5-C6. Degenerative changes of the C1-C2 articulation and craniocervical junction otherwise of normal relationship. Cervical facet arthrosis. Prevertebral soft tissues of normal appearance. Examination through the cranial cervical junction showing it to be widely patent. Examination through the C2-C3 intervertebral level revealing facet arthrosis and uncovertebral degenerative changes. No significant central stenosis. Moderate RIGHT foraminal narrowing. Mild LEFT foraminal narrowing. Examination through the C3-C4 intervertebral level revealing facet arthrosis and uncovertebral degenerative changes. Moderate to severe bilateral foraminal narrowing. Examination through the C4-C5 intervertebral level revealing facet arthrosis with uncovertebral degenerative changes and posterior disc osteophyte. Effacement of the CSF. Mild cord flattening. No cord signal changes. Moderate RIGHT foraminal narrowing. Moderate to severe LEFT foraminal narrowing. Examination through the C5-C6 intervertebral level revealing facet arthrosis. Uncovertebral degenerative changes and posterior disc osteophyte. Effacement of ventral CSF. Mild cord flattening. No cord signal changes. Moderate RIGHT foraminal narrowing. Moderate to severe LEFT foraminal narrowing. Examination through the C6-C7 intervertebral level revealing facet arthrosis and uncovertebral degenerative changes. Small posterior disc osteophyte. No significant central stenosis. Moderate bilateral foraminal narrowing. Examination through the C7-T1 intervertebral level revealing facet arthrosis. No significant central stenosis or foraminal narrowing. IMPRESSION: Spondylotic changes and facet arthrosis. No findings of fracture or listhesis. No findings to suggest acute disc protrusion. Varying degrees of relative chronic appearing central stenosis and foraminal narrowing as detailed above. Note made of mild cord flattening of the chronic appearance at C4-C5 and C5-C6. No priors are available for comparison. MR THORACIC w + wo CONTRAST, MR SPINE LUMBAR w + wo CONTRAST 08/11/23 INDICATION: Mid to low back pain with pain and weakness in both legs. Postlaminectomy syndrome. Spondylosis with radiculopathy, lumbosacral region. TECHNIQUE: Unenhanced and enhanced multiplanar, multisequence MR imaging of the thoracic and lumbar spine. Dotarem 20 mL was administered intravenously. No contrast waste documented. COMPARISON: None. FINDINGS: The examination is slightly limited due to patient motion. MRI thoracic spine: Normal alignment is demonstrated. Vertebral heights are well maintained. Bone marrow signal is within normal limits, and no suspicious osseous lesion is identified. Prevertebral and paraspinal soft tissues are within normal limits. Thoracic cord demonstrates normal course, caliber, and signal characteristics. No epidural fluid collection or hematoma is identified. No area of abnormal enhancement is identified. There are small disc bulges at T6-7 and T8-9. No significant central canal stenosis is identified. Neural foramina are patent throughout. Visualized chest and abdomen are grossly unremarkable. MRI lumbar spine: Normal alignment is demonstrated. Vertebral heights are well maintained. Bone marrow signal is within normal limits, and no suspicious osseous lesion is identified. Conus medullaris is unremarkable. No area of abnormal enhancement is identified. Paraspinal soft tissues and visualized portions of the abdomen and pelvis are unremarkable. At L1-2 there is no significant disc herniation or protrusion. No central canal or neuroforaminal stenosis is demonstrated. At L2-3 there is no significant disc herniation or protrusion. No central canal or neuroforaminal stenosis is demonstrated. At L3-4 there is a small broad-based disc bulge as well as bilateral facet hypertrophy and thickening of the ligamentum flavum. This causes mild central canal stenosis, but no neuroforaminal narrowing. At L4-5 there is no significant disc herniation or protrusion. There is bilateral facet hypertrophy and thickening of the ligamentum flavum. This causes mild central canal stenosis, but no neuroforaminal narrowing. At L5-S1 there is no significant disc herniation or protrusion. There is bilateral facet hypertrophy. No central canal or neuroforaminal stenosis is demonstrated. IMPRESSION: 1. The examination is slightly limited due to patient motion. 2. Thoracic spine demonstrates small disc bulges at T6-7 and T8-9, but no significant central canal stenosis or nerve root compromise at any level. 3. Lumbar spine demonstrates mild central canal stenosis at L3-4 and L4-5. There is no significant neuroforaminal narrowing or nerve root compromise at any level. Assessment & Plan Assessment & Plan (1) Post-laminectomy syndrome: Code(s): M96.1 - Postlaminectomy syndrome, not elsewhere classified Category: Medical (2) Chronic low back pain: Code(s): M54.50 - Low back pain, unspecified; G89.29 - Other chronic pain Category: Medical (3) Lumbosacral spondylosis: Code(s): M47.817 - Spondylosis without myelopathy or radiculopathy, lumbosacral region Category: Medical (4) Fibromyalgia: Code(s): M79.7 - Fibromyalgia Category: Medical (5) Opiate analgesic contract exists: Code(s): Z79.891 - skilled nursing (current) use of opiate analgesic Category: Medical (6) Disc disease, degenerative, cervical: Code(s): M50.30 - Other cervical disc degeneration, unspecified cervical region Category: Medical (7) Chronic left-sided lumbar radiculopathy: Code(s): M54.16 - Radiculopathy, lumbar region Category: Medical (8) Muscle spasm: Code(s): M62.838 - Other muscle spasm Category: Medical Plan Patient has shown accountability for her medication regimen and the pill count was accurate. The patient reported no noted side effects. There is no evidence of misuse, abuse or diversion at this time. [facility] reviewed. Script for hydrocodone-acetaminophen 10-325 mg QID prn with advanced date on 03/13/25. Patient also takes cyclobenzaprine and alternates methocarbamol or tizanidine. 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 She is aware and verbalized an agreement to take the medications at least 2-4 hours apart and she has Narcan at home. Patient has upcoming follow up with Dr. Mackenzie at [facility] to discuss recent lumbar spine MRI results, completed on 03/05/25 at [place], report is not available for review today. Previously discussed Left L5-S1 TFESI with sedation and fluoroscopy for left sided radiculopathy pain, pending Neurosurgery re- evaluation. Patient also suffers from post-laminectomy syndrome and failed SCS implant in the past. All questions and concerns have been answered patient agreed. Follow-up in 4-5 weeks for pill count and sooner as needed. Medications: Refilled pregabalin 75 mg PO BID 30 days 60 caps 1RF pain G89.29 - Other chronic pain, M47.27 - Other spondylosis with radiculopathy, lumbosacral region, M54.50 - Low back pain, unspecified, M96.1 - Postlaminectomy syndrome, not elsewhere classified hydrocodone-acetaminophen 10-325 mg Partial Fill upon patient request. 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
[2025-03-06 08:44] VITALS: BP 166/73; PULSE 95; O2SAT 98; BMI 45.7
--- OUTSIDE RECORDS SUMMARY | 2025-03-06 08:51 | XMS_ITS | Patient Health Record ---
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 [place] [address] [id number] Cris Wallace Self - patient is the insured Medical (General) History Medical History History ICD Code asthma COPD degenerative disc disease fibromyalgia bipolar disorder Surgical History Surgery Date(Month/Year) back surgery 2009 appendectomy 2010 neuro stimulator 2014 hysterectomy 2009?
--- OUTSIDE RECORDS SUMMARY | 2025-03-06 08:51 | XMS_ITS | Clinical Summary ---
Author Organization [facility] Address [address] [place] [phone] Phone Care Team Providers Care Union Contract Representative Name Role Phone Melissa Pennington MD Primary Care Provider Allergies No known active allergies Medications pregabalin [...] Date Malignant neoplasm of thyroi d gland ([facility] V24, [facility] V28) 09/27/2024 Surgical History Surgery Date Site/Laterality Comments THYROID SURGERY R LOBE ORIF HUMERUS FRACTURE X5 WITH HARDWARE SPINAL CORD STIMULATOR IMPLANT SPINAL CORD STIMULATOR REMOVAL HYSTERECTOMY BACK SURGERY BACK SURGERY MULTIPLE Medical History Medical History Date Comments Cancer ([facility] V24, [facility] V28) THYROID Bipolar 1 disorder ([facility] V24, [facility] V28) Anxiety Depression Fibromyalgia Arthritis SPINE COPD (chronic obstructive pulmonary disease) ([facility] V24, [facility] V28) Asthma Disease of thyroid gland Social [...] this topic Medical Devices Implanted Type Area Business Center Representative Device Identifier Shelf Expiration Date Model / Serial / Lot Drsg Hemostat 4x8in Abs Ster Surgicel - Sn/A - [id number] Implanted:Qty: 1 on 09/27/2024 by Toby Carson MD at [facility] Hemostasis Left: Thyroid [employer] 12/23/2027 1952 / N/A / N/A Plates Implants Right: Arm [place] [address] [place] [address] MEDICAID ADVANTAGE Advance Directives * Full Code [...] currently active code status orders. Care Teams Union Contract Representative Relationship Specialty Start Date End Date Melissa Pennington MD [address] [place] [address] PCP - General Internal Medicine 09/25/24
--- OUTSIDE RECORDS SUMMARY | 2025-03-06 08:51 | XMS_ITS | Data Portability ---
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 There is less than 1% risk of recurrence. Nonetheless patient feels strongly that she would like to have completion thyroidectomy. She understands there will be a need for long-term thyroid replacement. A referral to endocrinology will be arranged so she can have appropriate surveillance postoperatively I discussed the risks, benefits, and alternatives of left hemithyroidectomy including ipsilateral vocal cord paralysis causing temporary or permanent hoarseness, remote risk of hypocalcemia due to damage to the parathyroid glands, risk of permanent hypothyroidism, bleeding, hematoma, infection, and the surgical scar. I also discussed the risks, benefits, and alternatives of total thyroidectomy including risk to both recurrent laryngeal nerves with damage causing hoarseness and the remote risk of bilateral paralysis requiring tracheostomy, risk of temporary or permanent hypocalcemia, the need for lifelong thyroid replacement, bleeding, hematoma, infection and the surgical scar. To minimize the risk of injury to the voice I use an instrument during the surgery to monitor the function of the recurrent laryngeal nerve. [email or web address] Not available 08/22/2024 16:43:58 10/03/2024 10/03/2024 59 year old ramiro hagen presents for routine postoperative follow up appointment status post completion left thyroidectomy. Steri strips were removed and wound is healing well. Pathology found no additional cancer on left lobe. A benign parathyroid was removed which leaves 2 remaining parathyroid glands. She is to continue the Levothyroxyine and Tums as prescribed. Lifting restriction remains in place to assure wound continues to heal well. She has follow up in October with Dr. Carr and will go home and check to make sure that she has an endocrinology follow up appointment scheduled. [email or web address] Not available 10/03/2024 14:58:14 10/30/2024 10/30/2024 Patient has follow-up with endocrinology for thyroid replacement hormone management. She will get her lab testing later today. Her incision appears to be healing well. She has secondary concern of hearing loss. We will schedule a hearing test for her to further investigate [email or web address] Not available 10/30/2024 15:17:09 01/29/2025 01/29/2025 Hearing levels a re normal. Reassurance is given. Discussed auditory processing as she has some difficulty with group environments or when the speaker is facing away. Her description of tinnitus appears to be controlled with normal day-to-day activity and is not disruptive. [email or web address] Not available 01/29/2025 14:07:19 Plan of Treatment Reminders Order Date Submit Date Provider Last Modified By Organization Details Last Modified Time Details Appointments None recorded. Lab None recorded. Referral endocrinol ogy referral - Referral for to discuss thyroid replacemen t and surveillan ce of follicular ca. Thank you. 2023 024 [email or web address] 2 [facility] Endocrinology Scheduling Dept, [address] [place] [address], [place], [address], 09:42:52 Procedures None recorded. Surgeries thyroidect denzel, partial (SURG) 2023 024 9 Not available 16:46:26 Imaging None recorded. Medication Orders None recorded. Patient TargetsNo targets recorded. Patient InstructionsNo instructions recorded. Reason for Referral Endocrinology Referral for P rimary malignant neoplasm of thyroid gland Referral for to discuss thyroid replacement and surveillance of follicular ca. Thank you. Referring Physician: Toby Carr, Otolaryngology, Encounter Date: 08/22/2024 Results Created Date Observation Date Name Description Value Unit Range Abnormal Flag Note LastModifiedBy Organization Detail LastModifiedTime 09/27/20 24 09/27/2024 TISSU E EXAM .note See Note Origi nal Order ing Provi tameka: TRICIA L [facility]K [facility] - [address], [place] [address]aez [place], [place] [address] Not Available [address], [address], 09/29/2024 14:59:25 09/27/20 24 09/27/2024 TISSU E EXAM final diagnosis Thyroi d, left thyroi d-lobe ctomy: -ALEJANDRO GN THYRO ID WITH NO SPECI FIC PATHO LOGIC ROSI E -One benig n parat hyroi d gland with no speci fic patho logic jc e Elect sara gentile d by Lorin rainey MD on 2023 at 2:53 PM Not Available [address], [address], 09/29/2024 14:59:25 09/27/20 24 09/27/2024 TISSU E EXAM gross description A. Thyroi d, Left, left thyroi d: Label ed left thyro id . Recei lorraine in forma yanique is a 7 g, 4.2 x 2.1 x 1.4 cm left thyro id lobe witho ut defin itive isthm us fernanda n. The capsu le is pink- red and sierra h to shagg y with focal surfa ce disru ption . No lymph nodes or parat hyroi d gland s are appre ciate d. The super ficia l aspec t is inked blue, deep black . The speci men is seria lly secti oned from super ior to infer ior. The cut surfa maryanne displ ay a red-b rown glist ening paren chyma with no sherry s or lesio ns appre ciate d. The speci men is entir simon submi tted seque ntial ly from super ior to infer ior in casse ttes (aba ette one, two, three , four, and 9 = 2 piece s; casse tte 5-8, one piece each) . ONIEL oh Not Available [address], [address], 09/29/2024 14:59:25 09/27/20 24 09/27/2024 TISSU E EXAM disclaimer Unles s other steiner speci fied, all tissu e is 10% NB forma yanique fixed and paraf fin embed ded. Not Available [address], [address], 09/29/2024 14:59:25 09/27/20 24 09/27/2024 H&P No observ ation record ed. [address], [address], 09/29/2024 14:38:20 09/27/20 24 09/27/2024 op note No observ ation record ed. [address], [address], 09/29/2024 14:38:20 09/28/20 24 09/27/2024 disch arge summa ry No observ ation record ed. [email or web address] [address], [address], 09/29/2024 09:14:48 01/30/20 25 audio gram No observ ation record ed. BARCODE Not Available 2024 15:43:46 Result Notes None recorded. Problems Name Problem SNOMED Code Status Onset Date Resolution Date Notes Provider Name and Address Organization Details Recorded Time Thyroid nodule 629970089 Active 2023 TOBY CARR MD [address] [place] [address], [place], [address] [place] [address] - [facility] 11:34:16 Non-toxic uninodula r goiter 139844245 Active 2023 Nontoxic single thyroid nodule; Note: Date Diagnosed : 12/30/2023 11:26 AM (E04.1) TOBY CARR MD [address] [facility] [place], [place], [address], [place] - [facility] 4 11:59:41 Primary malignant neoplasm of thyroid gland 59499962 Active 2023 Right thyroid follicula r carcinoma [id number] TOBY CARR MD 100 [facility],[address], [place], [address], [place] - [facility] 4 11:29:18 Subjectiv e pulsatile tinnitus of left ear 301145749592 9103 Active 2024 PRITI GARCIA AUD 100 [facility],[address], [place], [address], [place] - [facility] 5 13:44:54 Abnormal auditory perceptio n 84415182 Active 2024 TOBY CARR MD 100 [facility], [address], [place], [address], [place] - [facility] 5 14:07:00 Problem Notes None recorded. Procedures Surgical History Date Name Laterality Status Provider Name and Address Organization Details Recorded Time 5 Air & Speech Audio with Tymps - 30978, 13180 & 34408 completed ERI CONRAD [address] [facility] [place],[address], [address], [facility] - [facility] 01/29/2025 13:50:54 4 Repeat thyroid surgery completed TOBY CARR MD 100 [facility],[place] [address], [place], [address], [facility] - [facility] 09/27/2024 14:57:30 4 Partial removal of thyroid completed TOBY CARR MD 100 [facility],[address], [address], [facility] - [facility] 08/14/2024 11:59:31 4 THYROIDECTOM Y, PARTIAL (SURG) completed Baltazar Marcus [place] - [facility] 08/21/2024 09:08:04 Imaging Results Imaging Date Name Status LastModified by Organiz ation Details LastModified Time 09/27/2024 H&P completed [address], [address], 09/29/2024 14:38:20 09/27/2024 op note completed [address], [address], 09/29/2024 14:38:20 09/27/2024 discharge summary completed [email or web address] [place] [address], [address], 09/29/2024 09:14:48 01/29/2025 audiogram completed BARCODE Information no t available 01/29/2025 15:43:46 Procedure Notes None recorded. Medical Equipment None Reported. Allergies No known drug allergies Medications Name Sig Start Date Stop Date Status Note LastModified by Organization Details LastModified Time cyclobenz aprine 10 mg tablet TAKE 1 TABLET BY MOUTH TWICE DAILY NEEDED FOR MUSCLE SPASM active Not Available Not Available No t Available fluconazo le 100 mg tablet TAKE 1 TABLET BY MOUTH DAILY active Not Available Not Available No t Available lamotrigi ne 150 mg tablet TAKE 1 TABLET BY MOUTH TWICE DAILY active Not Available Not Available No t Available azithromy margaux 250 mg tablet 01/29 completed Not Available Not Available Not Available prednison e 20 mg tablet TAKE 2 TABLETS BY MOUTH DAILY active Not Available Not Available No t Available hydrocodo ne 10 mg-acetam inophen 325 mg tablet TAKE 1 TABLET BY MOUTH FOUR TIMES DAILY NEEDED FOR SEVERE PAIN active Not Available Not Available No t Available citalopra m 20 mg tablet TAKE 1 TABLET BY MOUTH DAILY active Not Available Not Available No t Available benzonata te 100 mg capsule TAKE 1 CAPSULE BY MOUTH THREE TIMES DAILY FOR 10 DAYS NEEDED FOR COUGH 01/29 completed Not Available Not Available Not Available Advair Diskus 250 mcg-50 mcg/dose powder for inhalatio n INHALE 1 PUFF BY MOUTH TWICE DAILY. RINSE MOUTH AND THROAT AFTER USE active Not Available Not Available No t Available Antacid Ultra Strength 400 mg (calcium carb 1,000 mg) chewable tablet TAKE 1 TABLET BY MOUTH TWICE DAILY active Not Available Not Available No t Available docusate sodium 100 mg capsule TAKE 1 CAPSULE BY MOUTH TWICE DAILY FOR CONSTIPA TION active Not Available Not Available No t Available diclofena c sodium 75 mg tablet,de layed release TAKE 1 TABLET BY MOUTH TWICE DAILY active Not Available Not Available No t Available monteluka st 10 mg tablet TAKE 1 TABLET BY MOUTH DAILY active Not Available Not Available No t Available levothyro xine 200 mcg tablet TAKE 1 TABLET BY MOUTH EVERY DAY FOR THYROID REPLACEM ENT active Not Available Not Available No t Available epinephri ne 0.3 mg/0.3 mL injection , auto-inje ctor ADMINIST ER 0.3 MG IN THE MUSCLE 1 TIME. MAY REPEAT IF NECESSAR Y active Not Available Not Available No t Available methylpre dnisolone 4 mg tablets in a dose pack TAKE DIRECTED 01/29 completed Not Available Not Available Not Available ketoconaz ole 2 % topical cream APPLY TO SKIN TOPICALL Y THREE TIMES DAILY NEEDED FOR 14 DAYS active Not Available Not Available No t Available amoxicill in 875 mg-potass ium clavulana te 125 mg tablet TAKE 1 TABLET BY MOUTH EVERY 12 HOURS FOR 5 DAYS 01/29 completed Not Available Not Available Not Available azithromy margaux 500 mg tablet TAKE 1 TABLET BY MOUTH DAILY 01/29 completed Not Available Not Available Not Available Flovent HFA 220 mcg/actua tion aerosol inhaler INHALE 1 PUFF BY MOUTH TWICE DAILY active Not Available Not Available No t Available pregabali n 50 mg capsule TAKE 1 CAPSULE BY MOUTH TWICE DAILY FOR PAIN active Not Available Not Available No t Available pregabali n 75 mg capsule TAKE 1 CAPSULE BY MOUTH TWICE DAILY FOR PAIN active Not Available Not Available No t Available Lamictal active Medicati on ID: [id number] B rand Name: Lamictal Send Method: E-Prescr ibed Sub s Allowed: subs OK Medic ationGen ericName : Lamictal Not Available Not Available Not Available Combivent Respimat 20 mcg-100 mcg/actua tion solution for inhalatio n INHALE 1 PUFF BY MOUTH FOUR TIMES DAILY active Not Available Not Available No t Available naloxone 4 mg/actuat ion nasal spray CALL 911. SPR CONTENTS OF ONE SPRAYER (0.1ML) INTO ONE NOSTRIL. REPEAT IN 2-3 MIN IF SYMPTOMS OF OPIOID EMERGENC Y PERSIST, ALTERNAT E NOSTRILS active Not Available Not Available No t Available BinaxNOW COVID-19 Ag Self Test kit TEST DIRECTED TODAY active Not Available Not Available No t Available Vitals Date Recorded Body height Provider Name an d Address Organization Details Last Updated DateTime 01/29/2025 170.18 cm GREGORY ALVAREZ [place] - [facility] 01/29/2025 13:56:22 Date Recorded Body height Body mass index (BMI) Body weight Provider Name and Address Organization Details Last Updated DateTime 08/22/2024 170.18 cm 46.2 kg/m2 307622.75 g Romy Dunlap [place] - [facility] 08/22/2024 16:18:22 Date Recorded Body height Body mass index (BMI) Body weight Provider Name and Address Organization Details Last Updated DateTime 10/03/2024 170.18 cm 45.4 kg/m2 334663.79 g Cy Aparicio [place] - [facility] 10/03/2024 14:46:09 Date Recorded Body height Body mass index (BMI) Body weight Provider Name and Address Organization Details Last Updated DateTime 10/30/2024 170.18 cm 45.4 kg/m2 178969.79 g Romy Dunlap [place] - [facility] 10/30/2024 15:02:51 Social History None recorded. Functional Status None recorded. Mental Status None recorded. Family History Nothing Reported. Medical History No medical history recorded. Gynecological HistoryNo gynecological history recorded. Obstetrics History GPAL:G 0 P 0 0 0 0 Past Encounters Encounter ID Performer Location Encounter Start Date Encounter Closed Date Diagnosis/Indication Diagnosis SNOMED-CT Code Diagnosis ICD10 Code Diagnosis Note [id number] TOBY CARR MD [facility] [address] [place] [address] 08/22/2024 16:09:24 08/22/2024 16:42:36 Primary malignant neoplasm of thyroid gland 64826775 C73 completion left thyroidect denzel [id number] BRIJESH GALEANA PA-C [facility] [address] [address] 10/03/2024 14:40:18 10/03/2024 14:54:17 Primary malignant neoplasm of thyroid gland 19783944 C73 [id number] TOBY CARR MD [facility] [address] [address] 10/30/2024 14:46:36 10/30/2024 16:11:15 Primary malignant neoplasm of thyroid gland 25893603 C73 [id number] TOBY CARR MD [facility] [address] [address] 01/29/2025 13:25:55 01/29/2025 14:06:54 Abnormal auditory perception 68279085 H93.299 Right Ear:Normal hearing with excellent speech discrimina tion.Type A tympanogra m.Left Ear:Normal hearing with excellent speech discrimina tion.Type A tympanogra m. Health Concerns Section Related Observation LastModified by Organization Detai ls LastModified Time None Recorded Concern Status LastModified by Organization Details LastModified Time None Recorded Advance Directives Directive None Recorded Payers Insurance Date Sequence Insurance Name Policy Number Policy Bean Covered Member ID Bean Member ID Guarantor Name 01/24/2025 1 [facility] (MEDICAID HMO) [id number] Cris Sue [id number] Cris Sue 08/22/2024 2 [facility] (MEDICAID HMO) [id number] Cris Sue [id number] Cris Sue Notes Date Note Type Note Provider Name and Address Organization Details Recorded Time 08/22/2024 text/html 08/14/24 John HARO right hemithyroidpath: 18mm minimally invasive follicular carcinomastage: [id number] TOBY CARR MD [address] [place] [address], [address], [facility] - [facility] 08/22/2024 16:44:13 10/03/2024 text/html 59 year old ramiro hagen presents for routine postoperative appointment status post completion left thyroidectomy. She is taking the Levothyroxine and Tums. Denies paresthesias around the mouth. She does have some longstanding numbness and tingling in her feet which is not worsened. She is unsure if she has endocrinology follow up appointment. RAMSES WOLF MD 100 [facility],[place] [address], [place], [address], [facility] - [facility] 10/04/2024 07:49:15 10/30/2024 text/html Voice feels norm alhas lab testing with Dr Eden and then followupon levothyroxine 200mcgdone with calcium 08/14/24 Yamileth HARO right hemithyroidpath: 18mm minimally invasive follicular carcinomastage: [id number] 09/27/24 Yamileth Alvarez completion left hemithyroidpath - no malignancy TOBY CARR MD 100 [facility],[place] [address], [place], [address], [facility] - [facility] 10/30/2024 15:17:48 01/29/2025 text/html hearing losswas having difficulty with background noise or if speaker is not making eye contact Dr Eden, Endocrine replacement hdtcece75/21/24 Yamileth HARO right hemithyroidpath: 18mm minimally invasive follicular carcinomastage: [id number]/4/24 Yamileth Alvarez completion left hemithyroidpath - no malignancy TOBY CARR MD [address] [facility] [place] [address], [place], [address], [facility] 01/29/2025 14:07:31 OBGyn Episode No OBEpisode recorded.
== END 2025-03-06 09:11 | disposition home or self-care (01) ==
LOC: HO.PMC 08:33
PROVIDERS: PCP Internal Medicine; Visit Provider Nurse Practitioner Family
DX: M96.1 Postlaminectomy syndrome, not elsewhere classified (principal); M54.50 Low back pain, unspecified; G89.29 Other chronic pain; M47.817 Spondylosis without myelopathy or radiculopathy, lumbosacral region; M79.7 Fibromyalgia; Z79.891 Long term (current) use of opiate analgesic; M50.30 Other cervical disc degeneration, unspecified cervical region; M54.16 Radiculopathy, lumbar region; M62.838 Other muscle spasm
CPT/HCPCS: 99214; G2211

== ENCOUNTER → 2025-03-06 08:33 | Outpatient (BNVA) | payer OTHER, SELFPAY | PROVIDERS: PCP Internal Medicine; Visit Provider Nurse Practitioner Family | DX: Z51.81 Encounter for therapeutic drug level monitoring (principal); M96.1 Postlaminectomy syndrome, not elsewhere classified; M54.50 Low back pain, unspecified; M47.817 Spondylosis without myelopathy or radiculopathy, lumbosacral region; M79.7 Fibromyalgia; M50.30 Other cervical disc degeneration, unspecified cervical region; M54.16 Radiculopathy, lumbar region; M62.838 Other muscle spasm; G89.29 Other chronic pain | CPT/HCPCS: 99212 ==

== ENCOUNTER 2025-03-22 07:47 | Outpatient (REF) | payer OTHER, SELFPAY ==
--- OUTSIDE RECORDS SUMMARY | 2025-03-22 07:52 | XMS_ITS | Clinical Summary ---
Author Organization [facility] Address [address] [place] [address] Phone Care Team Providers Care Production Solderer Name Role Phone Melissa Pennington MD Primary Care Provider [phone] Allergies No known active allergies Medications pregabalin [...] Date Malignant neoplasm of thyroi d gland ([facility] V24, [facility] V28) 09/27/2024 Surgical History Surgery Date Site/Laterality Comments THYROID SURGERY R LOBE ORIF HUMERUS FRACTURE X5 WITH HARDWARE SPINAL CORD STIMULATOR IMPLANT SPINAL CORD STIMULATOR REMOVAL HYSTERECTOMY BACK SURGERY BACK SURGERY MULTIPLE Medical History Medical History Date Comments Cancer ([facility] V24, [facility] V28) THYROID Bipolar 1 disorder ([facility] V24, [facility] V28) Anxiety Depression Fibromyalgia Arthritis SPINE COPD (chronic obstructive pulmonary disease) ([facility] V24, [facility] V28) Asthma Disease of thyroid gland Social [...] this topic Medical Devices Implanted Type Area Early Childhood Education Specialist Device Identifier Shelf Expiration Date Model / Serial / Lot Drsg Hemostat 4x8in Abs Ster Surgicel - Sn/A - [id number] Implanted:Qty: 1 on 09/27/2024 by Toby Carson MD at [facility] Hemostasis Left: Thyroid [employer] 12/23/2027 1952 / N/A / N/A Plates Implants Right: Arm [place] [place] [address] MEDICAID ADVANTAGE Advance Directives * Full Code [...] currently active code status orders. Care Teams Production Solderer Relationship Specialty Start Date End Date Melissa Pennington MD [address] [place] [address] PCP - General Internal Medicine 09/25/24
== END 2025-03-22 07:48 | disposition home or self-care (01) ==
LOC: CF 07:47
DX: Z13.89 Encounter for screening for other disorder (principal)

== ENCOUNTER 2025-04-03 08:36 | Outpatient (AMB) | payer OTHER, SELFPAY ==
--- NOTE | 2025-04-03 08:38 | MHC.OFFVIS ---
Vital Signs 04/03/25 08:45 Height 5 ft 7 in Weight 282 lb BMI 44.2 BP 150/67 H Blood Pressure Location Rt radial Position Right Lateral Respiration 15 Pulse 81 Pulse Source Pulse Oximeter Pulse Oximetry (%) 97 Oxygen Delivery Method Room Air Intake Visit Reasons: PILL COUNT Intake Note: Patient presents today for a pill count of #36 pills for Hydrocodone. Patient had #53. Patient took one at 7am today. Pre Press Manager Required: No Accompanied by: Self / Same As Patient Allergies No Known Allergies Allergy (Verified 04/03/25 08:46) HPI Comments Details: Patient presents today for a pill count. Patient is supposed to have #36 Vicodin pills and presents with #53 pills. This demonstrates a responsible attitude in regards to her medication regimen. Her current pain management includes hydrocodone-acetaminophen up to four doses a day, pregabalin, and methocarbamol, reserving cyclobenzaprine usage for nighttime. She reports adequate analgesia on her current regime of hydrocodone-acetaminophen 10-325 mg QID as needed with no noted side effects. The patient is actively engaging in recreational fishing, indicating a beneficial physical activity which attributes to recent weight loss along with some dietary adjustments. Patient is undergoing further testing for neurosurgical evaluation and routine thyroid function due to her history of thyroid cancer. Pain is rated at 4/10 left sided low back and left hip and leg pain and widespread body pain with muscle stiffness and spasms which she attributes to fibromyalgia. Denies any recent cough, cold, infection, fever or any other significant changes in medical history since last office visit. Denies any changes to medications, medical history or recent hospitalizations. [facility] Medical History Fibromyalgia Polyarthralgia Follicular thyroid cancer Morbid obesity with BMI of 45.0-49.9, adult Anxiety PTSD (post-traumatic stress disorder) Chronic left-sided lumbar radiculopathy Numbness and tingling of both upper extremities Disc disease, degenerative, cervical Cervical radiculitis Chronic low back pain Lumbosacral spondylosis Right hip pain Bilateral knee pain Opiate analgesic contract exists Post-laminectomy syndrome Spondylosis of lumbosacral spine with radiculopathy Spinal cord stimulator status Bipolar 1 disorder, depressed Broken humerus Surgical History S/P ORIF (open reduction internal fixation) fracture Right humeral fracture H/O: hysterectomy H/O laminectomy Social History Patient Tobacco Use Status: Never used Tobacco Current occupational status: disabled Review of Systems Const Details: - Musculoskeletal: Reports chronic back pain, radiating leg pain, right hip pain, muscle cramps. - Neurological: Reports nerve-related back pain, denies bladder or bowel dysfunction, or saddle anesthesia. - Integumentary: Reports easy bruising. - Endocrine: Status post-thyroidectomy for thyroid cancer, ongoing routine thyroid screening. All systems reviewed & are unremarkable except as noted in HPI and below Physical Exam Vital Signs: Last Vital Signs Pulse 81 04/03/25 08:45 Resp 15 04/03/25 08:45 BP 150/67 H 04/03/25 08:45 Pulse Ox 97 04/03/25 08:45 Oxygen Delivery Method Room Air 04/03/25 08:45 BMI result Body Mass Index 44.2 General: Appears afebrile. Alert and oriented. Mood and affect appropriate. Follows and participates in conversation appropriately. Respiratory effort is unlabored. No cough. Able to transition from sit to stand unassisted. Ambulates with normal heel strike and toe off bilaterally. Resp Effort & Inspection: normal respiratory effort, able to speak in complete sentences, no cough and no respiratory distress General: Yes no CVA tenderness Back/Spine/Pelvis Other: Limited lumbar ROM. Lumbar extension reproduces moderate pain. Flexion is intact and reproduces mild pain. Multiple widespread TTPs 16/16 bilaterally, including upper and lower extremities. Back: no CVA tenderness Cervical Spine: cervical ROM normal, cervical muscular tenderness and Cervical spine tenderness Thoracic/Lumbar Spine: thoracic and lumbar spine normal to inspection, Thoracic/lumbar spine scar(s), Lasegue's sign positive (L5-S1 distribution) on the left and diffuse, pain with thoraco-lumbar ROM, paraspinal muscle tenderness, thoraco-lumbar ROM limited, No thoracic spinal tenderness and lumbar spinal tenderness (L4-S1) Pelvis: buttock tenderness on the left Sacroiliac joints: bilaterally tender to palpation Extrem General: Yes capillary refill normal, Yes no clubbing, cyanosis or edema and Yes no calf tenderness Psych Appearance: grossly normal Mental Status: mental status grossly normal Speech and movement: Normal speech and movement present and Clear speech present Affect: normal affect Attitude: cooperative Thought process: Normal thought process present Thought content: Normal thought content present, suicidality (none), no hallucinations and Depressive thoughts present Insight: Good insight present (Psych) Judgement: Good judgement present (Psych) Results Reviewed Results Reviewed: MR SPINE CERVICAL without CONTRAST 08/16/23 INDICATION: Postlaminectomy syndrome, not elsewhere classified. Pain for years. Bilateral hand numbness. History of fibromyalgia. TECHNIQUE: Unenhanced multiplanar, multisequence MR imaging of the cervical spine. COMPARISON: None Available. FINDINGS: Straightening of normal cervical lordosis. Mild loss of intervertebral disc space height and marginal osteophyte formation C4-C5 and C5-C6. Degenerative changes of the C1-C2 articulation and craniocervical junction otherwise of normal relationship. Cervical facet arthrosis. Prevertebral soft tissues of normal appearance. Examination through the cranial cervical junction showing it to be widely patent. Examination through the C2-C3 intervertebral level revealing facet arthrosis and uncovertebral degenerative changes. No significant central stenosis. Moderate RIGHT foraminal narrowing. Mild LEFT foraminal narrowing. Examination through the C3-C4 intervertebral level revealing facet arthrosis and uncovertebral degenerative changes. Moderate to severe bilateral foraminal narrowing. Examination through the C4-C5 intervertebral level revealing facet arthrosis with uncovertebral degenerative changes and posterior disc osteophyte. Effacement of the CSF. Mild cord flattening. No cord signal changes. Moderate RIGHT foraminal narrowing. Moderate to severe LEFT foraminal narrowing. Examination through the C5-C6 intervertebral level revealing facet arthrosis. Uncovertebral degenerative changes and posterior disc osteophyte. Effacement of ventral CSF. Mild cord flattening. No cord signal changes. Moderate RIGHT foraminal narrowing. Moderate to severe LEFT foraminal narrowing. Examination through the C6-C7 intervertebral level revealing facet arthrosis and uncovertebral degenerative changes. Small posterior disc osteophyte. No significant central stenosis. Moderate bilateral foraminal narrowing. Examination through the C7-T1 intervertebral level revealing facet arthrosis. No significant central stenosis or foraminal narrowing. IMPRESSION: Spondylotic changes and facet arthrosis. No findings of fracture or listhesis. No findings to suggest acute disc protrusion. Varying degrees of relative chronic appearing central stenosis and foraminal narrowing as detailed above. Note made of mild cord flattening of the chronic appearance at C4-C5 and C5-C6. No priors are available for comparison. MR THORACIC w + wo CONTRAST, MR SPINE LUMBAR w + wo CONTRAST 08/11/23 INDICATION: Mid to low back pain with pain and weakness in both legs. Postlaminectomy syndrome. Spondylosis with radiculopathy, lumbosacral region. TECHNIQUE: Unenhanced and enhanced multiplanar, multisequence MR imaging of the thoracic and lumbar spine. Dotarem 20 mL was administered intravenously. No contrast waste documented. COMPARISON: None. FINDINGS: The examination is slightly limited due to patient motion. MRI thoracic spine: Normal alignment is demonstrated. Vertebral heights are well maintained. Bone marrow signal is within normal limits, and no suspicious osseous lesion is identified. Prevertebral and paraspinal soft tissues are within normal limits. Thoracic cord demonstrates normal course, caliber, and signal characteristics. No epidural fluid collection or hematoma is identified. No area of abnormal enhancement is identified. There are small disc bulges at T6-7 and T8-9. No significant central canal stenosis is identified. Neural foramina are patent throughout. Visualized chest and abdomen are grossly unremarkable. MRI lumbar spine: Normal alignment is demonstrated. Vertebral heights are well maintained. Bone marrow signal is within normal limits, and no suspicious osseous lesion is identified. Conus medullaris is unremarkable. No area of abnormal enhancement is identified. Paraspinal soft tissues and visualized portions of the abdomen and pelvis are unremarkable. At L1-2 there is no significant disc herniation or protrusion. No central canal or neuroforaminal stenosis is demonstrated. At L2-3 there is no significant disc herniation or protrusion. No central canal or neuroforaminal stenosis is demonstrated. At L3-4 there is a small broad-based disc bulge as well as bilateral facet hypertrophy and thickening of the ligamentum flavum. This causes mild central canal stenosis, but no neuroforaminal narrowing. At L4-5 there is no significant disc herniation or protrusion. There is bilateral facet hypertrophy and thickening of the ligamentum flavum. This causes mild central canal stenosis, but no neuroforaminal narrowing. At L5-S1 there is no significant disc herniation or protrusion. There is bilateral facet hypertrophy. No central canal or neuroforaminal stenosis is demonstrated. IMPRESSION: 1. The examination is slightly limited due to patient motion. 2. Thoracic spine demonstrates small disc bulges at T6-7 and T8-9, but no significant central canal stenosis or nerve root compromise at any level. 3. Lumbar spine demonstrates mild central canal stenosis at L3-4 and L4-5. There is no significant neuroforaminal narrowing or nerve root compromise at any level. 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 The patient reported no noted side effects. There is no evidence of misuse, abuse or diversion at this time. [employer] reviewed. Script for hydrocodone-acetaminophen 10-325 mg QID prn with advanced date on 04/15/25. Patient also takes pregabalin, and alternates methocarbamol with cyclobenzaprine. Discussed with the patient the risks associated with muscle relaxants and other medications with potential [employer]ER depression and opioid use. She is aware and verbalized an agreement to take the medications at least 2-4 hours apart and she has Narcan at home. Encouragement of swimming and other aerobic activities will be considered for its benefits in managing fibromyalgia symptoms. Patient has upcoming follow up with Dr. Mackenzie at [facility] to discuss recent lumbar spine [place] results [place] and has pending flexion and extension lumbar imaging ([facility] Previously discussed Left L5-S1 TFESI with sedation and fluoroscopy for left sided radiculopathy pain, pending Neurosurgery re-evaluation. Patient also suffers from post-laminectomy syndrome and failed SCS implant in the past. All questions and concerns have been answered patient agreed. Follow-up in 4-5 weeks for pill count and sooner as needed. Patient was informed and verbally consented to the use of an ambient scribe for clinic note documentation during this visit. Medications: Refilled methocarbamol 750 mg PO BID PRN 60 tabs 0RF muscle spasm G89.29 - Other chronic pain, M54.50 - Low back pain, unspecified, M62.838 - Other muscle spasm, M79.7 - Fibromyalgia hydrocodone-acetaminophen 10-325 mg Partial Fill upon patient request. 1 tab PO QID 30 days PRN 120 tabs 0RF severe pain (scale score 7-10) M25.561 - Pain in right knee, M25.562 - Pain in left knee, M47.27 - Other spondylosis with radiculopathy, lumbosacral region, M96.1 - Postlaminectomy syndrome, not elsewhere classified, Z79.891 - USP (current) use of opiate analgesic pregabalin 75 mg PO BID 30 days 60 caps 1RF pain G89.29 - Other chronic pain, M47.27 - Other spondylosis with radiculopathy, lumbosacral region, M54.50 - Low back pain, unspecified, M96.1 - Postlaminectomy syndrome, not elsewhere classified Coding Level of Care Code Est Pt Level 4 (91996) Complex EM visit Add On G2211 Diagnoses Post-laminectomy syndrome M96.1 Chronic low back pain M54.50; G89.29 Lumbosacral spondylosis M47.817 Fibromyalgia M79.7 Opiate analgesic contract exists Z79.891 Disc disease, degenerative, cervical M50.30 Chronic left-sided lumbar radiculopathy M54.16 Muscle spasm M62.838
[2025-04-03 08:45] VITALS: BP 150/67; PULSE 81; RESP 15; O2SAT 97; BMI 44.2
--- OUTSIDE RECORDS SUMMARY | 2025-04-03 08:59 | XMS_ITS | Clinical Summary ---
Author Organization [facility] Address [address] [place] [phone] Phone Care Team Providers Care Roll Icer Name Role Phone Melissa Pennington MD Primary [...] Date Malignant neoplasm of thyroi d gland ([facility] V24, [facility] V28) 09/27/2024 Surgical History Surgery Date Site/Laterality Comments THYROID SURGERY R LOBE ORIF HUMERUS FRACTURE X5 WITH HARDWARE SPINAL CORD STIMULATOR IMPLANT SPINAL CORD STIMULATOR REMOVAL HYSTERECTOMY BACK SURGERY BACK SURGERY MULTIPLE Medical History Medical History Date Comments Cancer ([facility] V24, [facility] V28) THYROID Bipolar 1 disorder ([facility] V24, [facility] V28) Anxiety Depression Fibromyalgia Arthritis SPINE COPD (chronic obstructive pulmonary disease) ([facility] V24, [facility] V28) Asthma [...] this topic Medical Devices Implanted Type Area Fund Accountant Device Identifier Shelf Expiration Date Model / Serial / Lot Drsg Hemostat 4x8in Abs Ster Surgicel - Sn/A - [id number] Implanted:Qty: 1 on 09/27/2024 by Toby Carson MD at [facility] Hemostasis Left: Thyroid [employer] 12/23/2027 1952 / N/A / N/A Plates Implants Right: Arm [place] [address] [place] [address] MEDICAID ADVANTAGE Advance Directives * Full Code [...] currently active code status orders. Care Teams Roll Icer Relationship Specialty Start Date End Date Melissa Pennington MD [address] [place] [address] PCP - General Internal Medicine 09/25/24
== END 2025-04-03 09:01 | disposition home or self-care (01) ==
LOC: HO.PMC 08:37
PROVIDERS: PCP Internal Medicine; Visit Provider Nurse Practitioner Family
DX: M96.1 Postlaminectomy syndrome, not elsewhere classified (principal); M54.50 Low back pain, unspecified; G89.29 Other chronic pain; M47.817 Spondylosis without myelopathy or radiculopathy, lumbosacral region; M79.7 Fibromyalgia; Z79.891 Long term (current) use of opiate analgesic; M50.30 Other cervical disc degeneration, unspecified cervical region; M54.16 Radiculopathy, lumbar region; M62.838 Other muscle spasm
CPT/HCPCS: 99214; G2211

== ENCOUNTER → 2025-04-03 08:36 | Outpatient (BNVA) | payer OTHER, SELFPAY | PROVIDERS: PCP Internal Medicine; Visit Provider Nurse Practitioner Family | DX: M96.1 Postlaminectomy syndrome, not elsewhere classified (principal); M47.817 Spondylosis without myelopathy or radiculopathy, lumbosacral region; M54.16 Radiculopathy, lumbar region; M79.7 Fibromyalgia; M54.50 Low back pain, unspecified; M50.30 Other cervical disc degeneration, unspecified cervical region; G89.29 Other chronic pain; M62.838 Other muscle spasm; Z79.891 Long term (current) use of opiate analgesic | CPT/HCPCS: 99212 ==

== ENCOUNTER → 2025-05-08 09:18 | Outpatient (BNVA) | payer OTHER, SELFPAY | PROVIDERS: PCP Internal Medicine | DX: Z79.891 Long term (current) use of opiate analgesic (principal) ==

== ENCOUNTER 2025-07-09 08:58 | Outpatient (AMB) | payer OTHER, SELFPAY ==
--- OUTSIDE RECORDS SUMMARY | 2023-02-02 | XMS_ITS | Encounter Summary ---
Author Organization [facility] Address [address] [facility] [address] [place] [phone] Phone Care Team Providers Care Regional Extension Service Specialist Name Role Phone Unavailable Primary Care Provider Unavailabl e Encounter Details Date Type Department Care Team ([facility] st Contact Info) Description 02/02/2023 Hospital Encounter [facility] [address] [place] [phone] Toby Tatum MD [address] [place] [phone] [email or web address] Social History Tobacco Use Types Packs/Day Years [...] It is not the complete legal health record.[facility]
--- NOTE | 2025-07-09 09:04 | A.OFFVIS_ITS ---
Vital Signs 07/09/25 09:16 Height 5 ft 7 in Weight 279 lb 2 oz BMI 43.7 BP 135/65 Blood Pressure Location Rt brachial Position Sitting Pulse 78 Pulse Source Pulse Oximeter Pulse Oximetry (%) 97 Oxygen Delivery Method Room Air Intake Visit Reasons: PILL COUNT Intake Note: Cris comes in today for a pill count to hydrocodone-acetaminophen, patient should have 28 tablets and presents with 29 tablets which she last took today 07/09/25 at 7:15am.Pain today 03/03 Buffer Automatic Required: No Accompanied by: Self / Same As Patient Allergies No Known Allergies Allergy (Verified 07/09/25 09:16) HPI Comments Details: Patient presents today for a pill count. Patient is supposed to have #28 Vicodin pills and presents with #53 pills. This demonstrates a responsible attitude in regards to her medication regimen. Her current pain management includes hydrocodone-acetaminophen up to four doses a day, pregabalin reserving cyclobenzaprine usage for nighttime. Patient reports adequate analgesia on her current regime of hydrocodone- acetaminophen 10-325 mg QID as needed with no noted side effects. Pain is rated at 5/10 left sided low back and left hip and leg pain and widespread body pain with muscle stiffness and spasms which she attributes to fibromyalgia. She was diagnosed with fibromyalgia approximately 10 to 15 years ago, with symptoms including widespread musculoskeletal pain and tenderness. She reports that her symptoms have been persistent and have not significantly improved with previous treatments, including various medications and lifestyle modifications. She also experiences neuropathic pain, particularly affecting her lower extremities, which she attributes to nerve issues related to a lack of disc space in her spine. This pain has been a longstanding issue and is exacerbated by physical activities such as driving long distances. The patient has been exposed to ticks and is concerned about possible Lyme disease, although she has not been tested recently. She also reports experiencing a butterfly rash during severe pain episodes, raising concerns about lupus, although this has not been formally diagnosed. She has tried various medications, including pregabalin and cyclobenzaprine, to manage her symptoms, with varying degrees of success. Patient has pending EMG and NVC studies per her recent Neurosurgery follow up and plans to schedule it in the near future. Denies any recent cough, cold, infection, fever or any other significant changes in medical history since last office visit. Denies any changes to medications, medical history or recent hospitalizations. PFSH Medical History Fibromyalgia Polyarthralgia Follicular thyroid cancer Morbid obesity with BMI of 45.0-49.9, adult Anxiety PTSD (post-traumatic stress disorder) Chronic left-sided lumbar radiculopathy Numbness and tingling of both upper extremities Disc disease, degenerative, cervical Cervical radiculitis Chronic low back pain Lumbosacral spondylosis Right hip pain Bilateral knee pain Opiate analgesic contract exists Post-laminectomy syndrome Spondylosis of lumbosacral spine with radiculopathy Spinal cord stimulator status Bipolar 1 disorder, depressed Broken humerus Surgical History S/P ORIF (open reduction internal fixation) fracture Right humeral fracture H/O: hysterectomy H/O laminectomy Social History Patient Tobacco Use Status: Never used Tobacco Current occupational status: disabled Review of Systems Const All systems reviewed & are unremarkable except as noted in HPI and below Physical Exam General: Appears afebrile. Alert and oriented. Mood and affect appropriate. Follows and participates in conversation appropriately. Respiratory effort is unlabored. No cough. Able to transition from sit to stand unassisted. Ambulates with normal heel strike and toe off bilaterally. Resp Effort & Inspection: normal respiratory effort, able to speak in complete s entences, no cough and no respiratory distress General: Yes no CVA tenderness Back/Spine/Pelvis Other: Limited lumbar ROM. Lumbar extension reproduces moderate pain. Flexion is intact and reproduces mild pain. Multiple widespread TTPs 16/16 bilaterally, including upper and lower extrem ities. Back: no CVA tenderness Cervical Spine: cervical ROM normal, cervical muscular tenderness and Cervical spine tenderness Thoracic/Lumbar Spine: thoracic and lumbar spine normal to inspection, Thoracic/lumbar spine scar(s), Lasegue's sign positive (L5-S1 distribution) on the left and diffuse, pain with thoraco-lumbar ROM, paraspinal muscle tenderness, thoraco-lumbar ROM limited, No thoracic spinal tenderness and lumbar spinal tenderness (L4-S1) Pelvis: buttock tenderness on the left Sacroiliac joints: bilaterally tender to palpation Extrem General: Yes capillary refill normal, Yes no clubbing, cyanosis or edema and Yes no calf tenderness Psych Appearance: grossly normal Mental Status: mental status grossly normal Speech and movement: Normal speech and movement present and Clear speech present Affect: normal affect Attitude: cooperative Thought process: Normal thought process present Thought content: Normal thought content present, suicidality (none), no hallucinations and Depressive thoughts present Insight: Good insight present (Psych) Judgement: Good judgement present (Psych) Results Reviewed Results Reviewed: MR SPINE CERVICAL without CONTRAST 08/16/23 INDICATION: Postlaminectomy syndrome, not elsewhere classified. Pain for years. Bilateral hand numbness. History of fibromyalgia. TECHNIQUE: Unenhanced multiplanar, multisequence MR imaging of the cervical spine. COMPARISON: None Available. FINDINGS: Straightening of normal cervical lordosis. Mild loss of intervertebral disc space height and marginal osteophyte formation C4-C5 and C5-C6. Degenerative changes of the C1-C2 articulation and craniocervical junction otherwise of normal relationship. Cervical facet arthrosis. Prevertebral soft tissues of normal appearance. Examination through the cranial cervical junction showing it to be widely patent. Examination through the C2-C3 intervertebral level revealing facet arthrosis and uncovertebral degenerative changes. No significant central stenosis. Moderate RIGHT foraminal narrowing. Mild LEFT foraminal narrowing. Examination through the C3-C4 intervertebral level revealing facet arthrosis and uncovertebral degenerative changes. Moderate to severe bilateral foraminal narrowing. Examination through the C4-C5 intervertebral level revealing facet arthrosis with uncovertebral degenerative changes and posterior disc osteophyte. Effacement of the CSF. Mild cord flattening. No cord signal changes. Moderate RIGHT foraminal narrowing. Moderate to severe LEFT foraminal narrowing. Examination through the C5-C6 intervertebral level revealing facet arthrosis. Uncovertebral degenerative changes and posterior disc osteophyte. Effacement of ventral CSF. Mild cord flattening. No cord signal changes. Moderate RIGHT foraminal narrowing. Moderate to severe LEFT foraminal narrowing. Examination through the C6-C7 intervertebral level revealing facet arthrosis and uncovertebral degenerative changes. Small posterior disc osteophyte. No significant central stenosis. Moderate bilateral foraminal narrowing. Examination through the C7-T1 intervertebral level revealing facet arthrosis. No significant central stenosis or foraminal narrowing. IMPRESSION: Spondylotic changes and facet arthrosis. No findings of fracture or listhesis. No findings to suggest acute disc protrusion. Varying degrees of relative chronic appearing central stenosis and foraminal narrowing as detailed above. Note made of mild cord flattening of the chronic appearance at C4-C5 and C5-C6. No priors are available for comparison. MR THORACIC w + wo CONTRAST, MR SPINE LUMBAR w + wo CONTRAST 08/11/23 INDICATION: Mid to low back pain with pain and weakness in both legs. Postlaminectomy syndrome. Spondylosis with radiculopathy, lumbosacral region. TECHNIQUE: Unenhanced and enhanced multiplanar, multisequence MR imaging of the thoracic and lumbar spine. Dotarem 20 mL was administered intravenously. No contrast waste documented. COMPARISON: None. FINDINGS: The examination is slightly limited due to patient motion. MRI thoracic spine: Normal alignment is demonstrated. Vertebral heights are well maintained. Bone marrow signal is within normal limits, and no suspicious osseous lesion is identified. Prevertebral and paraspinal soft tissues are within normal limits. Thoracic cord demonstrates normal course, caliber, and signal characteristics. No epidural fluid collection or hematoma is identified. No area of abnormal enhancement is identified. There are small disc bulges at T6-7 and T8-9. No significant central canal stenosis is identified. Neural foramina are patent throughout. Visualized chest and abdomen are grossly unremarkable. MRI lumbar spine: Normal alignment is demonstrated. Vertebral heights are well maintained. Bone marrow signal is within normal limits, and no suspicious osseous lesion is identified. Conus medullaris is unremarkable. No area of abnormal enhancement is identified. Paraspinal soft tissues and visualized portions of the abdomen and pelvis are unremarkable. At L1-2 there is no significant disc herniation or protrusion. No central canal or neuroforaminal stenosis is demonstrated. At L2-3 there is no significant disc herniation or protrusion. No central canal or neuroforaminal stenosis is demonstrated. At L3-4 there is a small broad-based disc bulge as well as bilateral facet hypertrophy and thickening of the ligamentum flavum. This causes mild central canal stenosis, but no neuroforaminal narrowing. At L4-5 there is no significant disc herniation or protrusion. There is bilateral facet hypertrophy and thickening of the ligamentum flavum. This causes mild central canal stenosis, but no neuroforaminal narrowing. At L5-S1 there is no significant disc herniation or protrusion. There is bilateral facet hypertrophy. No central canal or neuroforaminal stenosis is demonstrated. IMPRESSION: 1. The examination is slightly limited due to patient motion. 2. Thoracic spine demonstrates small disc bulges at T6-7 and T8-9, but no significant central canal stenosis or nerve root compromise at any level. 3. Lumbar spine demonstrates mild central canal stenosis at L3-4 and L4-5. There is no significant neuroforaminal narrowing or nerve root compromise at any level. Assessment & Plan Assessment & Plan (1) Post-laminectomy syndrome: Code(s): M96.1 - Postlaminectomy syndrome, not elsewhere classified Category: Medical (2) Chronic low back pain: Code(s): M54.50 - Low back pain, unspecified; G89.29 - Other chronic pain Category: Medical (3) Lumbosacral spondylosis: Code(s): M47.817 - Spondylosis without myelopathy or radiculopathy, lumbosacral region Category: Medical (4) Fibromyalgia: Code(s): M79.7 - Fibromyalgia Category: Medical (5) Opiate analgesic contract exists: Code(s): Z79.891 - shelter (current) use of opiate analgesic Category: Medical (6) Disc disease, degenerative, cervical: Code(s): M50.30 - Other cervical disc degeneration, unspecified cervical region Category: Medical (7) Chronic left-sided lumbar radiculopathy: Code(s): M54.16 - Radiculopathy, lumbar region Category: Medical (8) Muscle spasm: Code(s): M62.838 - Other muscle spasm Category: Medical Plan Patient has shown accountability for her medication regimen and the pill count was accurate. The patient reported no noted side effects. There is no evidence of misuse, abuse or diversion at this time[facility] for hydrocodone-acetaminophen 10-325 mg QID prn with advanced date on 07/15/25. Patient also takes pregabalin and cyclobenzaprine. 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 She is aware and verbalized an agreement to take the medications at least 2-4 hours apart and she has Narcan at home. Patient has been seen by Dr. Mackenzie at [facility] to follow up on recent lumbar spine MRI results ([facility]) and flexion and extension lumbar imaging ([facility]). Patient also suffers from post-laminectomy syndrome and failed SCS implant in the past. She has pending EMG/NVC studies. The patient is advised to consult with her PCP and Cranberry Grower to explore the potential diagnoses of lupus and Lyme disease. Lifestyle modifications, such as reducing physical stressors and considering tary changes, are recommended to manage metabolic syndrome and fibromyalgia symptoms. All questions and concerns have been answered patient agreed. Follow-up in 4-5 weeks for pill count and sooner as needed. Patient was informed and verbally consented to the use of an ambient scribe for clinic note documentation during this visit. Medications: Refilled pregabalin 75 mg PO BID 60 caps 2RF pain 30 days G89.29 - Other chronic pain, M47.27 - Other spondylosis with radiculopathy, lumbosacral region, M54.50 - Low back pain, unspecified, M96.1 - Postlaminectomy syndrome, not elsewhere classified hydrocodone-acetaminophen 10-325 mg Partial Fill upon patient request. 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
[2025-07-09 09:16] VITALS: BP 135/65; PULSE 78; O2SAT 97; BMI 43.7
--- OUTSIDE RECORDS SUMMARY | 2025-07-09 10:27 | XMS_ITS | Clinical Summary ---
Author Organization [facility] Address [address] [place] [id number] Phone Care Team Providers Care Side Show Entertainer Name Role Phone Melissa Pennington MD Primary Care Provider [phone] Allergies No known active allergies Medications pregabalin [...] Date Malignant neoplasm of thyroi d gland ([facility] V24, [facility] V28) 09/27/2024 Surgical History Surgery Date Site/Laterality Comments THYROID SURGERY R LOBE ORIF HUMERUS FRACTURE X5 WITH HARDWARE SPINAL CORD STIMULATOR IMPLANT SPINAL CORD STIMULATOR REMOVAL HYSTERECTOMY BACK SURGERY BACK SURGERY MULTIPLE Medical History Medical History Date Comments Cancer ([facility] V24, [facility] V28) THYROID Bipolar 1 disorder ([facility] V24, [facility] V28) Anxiety Depression Fibromyalgia Arthritis SPINE COPD (chronic obstructive pulmonary disease) ([facility] V24, [facility] V28) Asthma Disease of thyroid gland Social [...] 83 09/28/2024 7:58 AM EST Temperature 36.6 C (97.8 F) 09/28/2024 7:58 AM EST Respiratory Rate 16 09/28/2024 7:58 AM EST [...] Years (1 of 2 - PCV) 1984 Zoster Vaccines (1 of 2) 1984 Cervical Cancer Screening: P ap Smear 1986 Cholesterol Screening (Lipid Panel) 09/14/2024 Colorectal Cancer Screening: Colonoscopy 09/14/2024 HIV Screening 09/14/2024 Hepatitis C Screening 09/14/2024 Social Influencers of Health Screening 09/14/2024 Depression Screening 10/25/2024 COVID-19 Vaccine (4 - 2024-2 6 season) 2025 10/14/2021, 01/15/2021, 12/18/2020 Influenza Vaccine (#1) 2025 3, 08/29/2021, 08/26/2020 DTaP,Tdap,and Td Vaccines (2 - [...] this topic Medical Devices Implanted Type Area Medical Economics Consultant Device Identifier Shelf Expiration Date Model / Serial / Lot Drsg Hemostat 4x8in Abs Ster Surgicel - Sn/A - [id number] Implanted:Qty: 1 on 09/27/2024 by Toby Carson MD at [facility] Hemostasis Left: Thyroid [employer] 12/23/20271951 / N/A / N/A Plates Implants Right: Arm Insurance [facility] MEDICAID ADVANTAGE Advance Directives * Full Code [...] currently active code status orders. Care Teams Side Show Entertainer Relationship Specialty Start Date End Date Melissa Pennington MD [address] [place] [id number] PCP - General Internal Medicine 09/25/24
--- OUTSIDE RECORDS SUMMARY | 2025-07-09 10:27 | XMS_ITS | Clinical Summary ---
Author Organization Located [facility] Address [address] [place] [id number] Phone Care Team Providers Care Broadband Technician Name Role Phone Melissa Pennington MD Primary Care Provide r Allergies Active Allergy Reactions Criticality Noted Date Comments Mold Hives 02/11/2024 Other Reaction(s): some breathing difficulty Venom-Honey Bee Hives 02/11/2024 Medications citalopram (CELEXA) 20 MG tablet Take 1 tablet by mouth every morning. 12/01/2023 Active cyclobenzaprine (FLEXERIL) 10 MG tablet Take 10 mg by mouth 2 (two) times a day as needed. 02/03/2024 Active diclofenac sodium (VOLTAREN) 75 MG EC tablet Take 1 tablet by mouth 2 (two) times a day. 12/18/2023 Active docusate sodium (COLACE) 100 MG capsule Take 100 mg by mouth 2 (two) times a day. 11/18/2023 Active EPINEPHrine 0.3 mg/0.3 mL auto-injector Inject 0.3 mg into the muscle once as needed. 11/22/2023 Active HYDROcodone-acet aminophen (NORCO 10-325) 10-325 mg per tablet 02/04/2024 Activ e COMBIVENT RESPIMAT 20-100 mcg/actuation Mist Inhale 1 puff into the lungs every 4 (four) hours as needed. Active lamoTRIgine (LAMICTAL) 150 MG IMMEDIATE release tablet Take 1 tablet by mouth 2 (two) times a day. 01/21/2024 Active montelukast (SINGULAIR) 10 mg tablet Take 1 tablet by mouth every morning. 02/03/2024 Active pregabalin (LYRICA) 50 MG capsule Take 50 mg by mouth 2 (two) times a day. 02/07/2024 Active Social History Tobacco Use Types Packs/Day Years Used Date Smoking Tobacco: Never Smokeless Tobacco: Never Tobacco Cessation:Counseling Given: Not Answered Education Answer Date Recorded Are you interested [...] or Baldwin 02/24/2024 11 :34 AM EDT Last Filed Vital Signs Vital Sign Reading Time Taken Comments Blood Pressure - - Pulse - - Temperature - - Respiratory Rate - - Oxygen Saturation - - Inhaled Oxygen Concentration - - Weight 136.1 kg (300 lb) 02/11/2024 2:46 PM EDT Height - - Body Mass Index - - Plan of Treatment Health Maintenance Due Date Last Done Comments Adult Td,Tdap Booster 1965 LIPID PANEL 1965 DEPRESSION SCREENING 1977 HEPATITIS C SCREENING 1983 HIV ONE-TIME SCREENING (18-6 5 YEARS) 1983 PAP SMEAR 1986 SMOKING STATUS SCREENING (On ce After 26 Yrs) 1991 MAMMOGRAM 2005 COLOGUARD 2010 COLONOSCOPY 2010 COLORECTAL CANCER SCREENING 2010 FIT TEST 2010 FOBT 2010 SIGMOIDOSCOPY 2010 VIRTUAL COLONOSCOPY 2010 PNEUMOCOCCAL VACCINES (50+ years) (1 of 1 - PCV) 2015 ZOSTER VACCINES (1 of 2) 2015 COVID-19 VACCINE (4 - 2023-2 5 season) 2024 10/14/2021, 01/15/2021, 12/18/2020 INFLUENZA VACCINE (#1) 2025 , 08/29/2021 HEPATITIS A VACCINES Aged Out No long er eligible based on patient's age to complete this topic HIB VACCINES Aged Out No longer eligi ble based on patient's age to complete this topic MENINGOCOCCAL VACCINES (ACWY) Aged Out No longer eligible based on patient's age to complete this topic MENINGOCOCCAL VACCINES (B) Aged Out N o longer eligible based on patient's age to complete this topic Medical Devices Not on file Insurance [facility] ACO [facility] Member Subscriber Plan / Payer (Ef fective 2023-) Name:Cris Sue Relation to Subscriber:Self Name:Cris Sue Payer ID:Not on file Type:Medicaid Address: [place] [id number] [facility] Care Teams Broadband Technician Relationship Specialty Start Date End Date Melissa Pennington MD [address] [place] [address] PCP - General Internal Medicine 02/24/24 Additional Source Comments The information contained in this document represents components of the legal health record. It is not the complete legal health record.Loc[facility]
--- OUTSIDE RECORDS SUMMARY | 2025-07-09 10:27 | XMS_ITS | Patient Health Record ---
Author Organization [facility] Address [address] [place] [address] Care Team Providers Care Cleaning Laborer Name Role Phone Osbaldo Domínguez DO Primary Care Provider STEPHY Caballero Unavailable [phone] Reason For Referral No Information Social History Tobacco Use: Social History Observation Description Date Details (start date - stop date) Never Smoker NA - NA Social History Social History Social Info Question Answer Notes Smoking MU Are you a: nonsmoker Additional Findings: Tobacco Non-User Current no n-smoker Alcohol MU Interpretation Negative Additional Details Category Social Info Options Details Social History Alcohol: No Sexually active: Yes Problems Problem Type SNOMED Code ICD Code Onset Dates Problem Status W/U Status Risk Notes Problem Disorder of kidney and/or ureter (217517674) 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 [place] [address] [id number] Cris Wallace Self - patient is the insured Medical (General) History Medical History History ICD Code asthma COPD degenerative disc disease fibromyalgia bipolar disorder Surgical History Surgery Date(Month/Year) back surgery 2009 appendectomy 2009 neuro stimulator 2015 hysterectomy 2009?
== END 2025-07-09 09:30 | disposition home or self-care (01) ==
LOC: HO.PMC 08:59
PROVIDERS: PCP Internal Medicine; Visit Provider Nurse Practitioner Family
DX: M96.1 Postlaminectomy syndrome, not elsewhere classified (principal); M54.50 Low back pain, unspecified; G89.29 Other chronic pain; M47.817 Spondylosis without myelopathy or radiculopathy, lumbosacral region; M79.7 Fibromyalgia; Z79.891 Long term (current) use of opiate analgesic; M50.30 Other cervical disc degeneration, unspecified cervical region; M54.16 Radiculopathy, lumbar region; M62.838 Other muscle spasm
CPT/HCPCS: 99214; G2211

== ENCOUNTER → 2025-07-09 08:58 | Outpatient (BNVA) | payer OTHER, SELFPAY | PROVIDERS: PCP Internal Medicine; Visit Provider Nurse Practitioner Family | DX: M79.7 Fibromyalgia (principal); M47.817 Spondylosis without myelopathy or radiculopathy, lumbosacral region; M96.1 Postlaminectomy syndrome, not elsewhere classified; M54.50 Low back pain, unspecified; M50.30 Other cervical disc degeneration, unspecified cervical region; M54.16 Radiculopathy, lumbar region; M62.838 Other muscle spasm; Z79.891 Long term (current) use of opiate analgesic | CPT/HCPCS: 99212 ==

== ENCOUNTER 2025-08-07 08:45 | Outpatient (AMB) | payer OTHER, SELFPAY ==
--- OUTSIDE RECORDS SUMMARY | 2023-02-02 | XMS_ITS | Encounter Summary ---
Author Organization [facility] Address [address] [employer] [facility] [address] [place] [phone] Phone Care Team Providers Care Earth Science Technical Officer Name Role Phone Unavailable Primary Care Provider Unavailabl e Encounter Details Date Type Department Care Team ([facility] st Contact Info) Description 02/02/2023 Hospital Encounter [facility] [address] [place] [phone] Toby Tatum MD [address] [place] [phone] [email or web address] Social History Tobacco Use Types Packs/Day Years [...] It is not the complete legal health record.[facility]
--- NOTE | 2025-08-07 08:49 | A.OFFVIS_ITS ---
Vital Signs 08/07/25 08:56 Height 5 ft 7 in Weight 284 lb 6 oz BMI 44.5 BP 188/79 H Blood Pressure Location Rt brachial Position Sitting Pulse 90 Pulse Source Pulse Oximeter Pulse Oximetry (%) 97 Oxygen Delivery Method Room Air Intake Visit Reasons: Pill Count Intake Note: Cris comes in today for a pill count to hydrocodone-acetaminophen, patient should have 32 tablets and presents with 35 tablets which she last took today 08/07/25 at 8am. Pain today 04/03 Medical Laboratory Technician Required: No Accompanied by: Self / Same As Patient Allergies No Known Allergies Allergy (Verified 08/07/25 08:56) HPI Comments Details: Patient presents today for a pill count. Patient is supposed to have #32 Vicodin pills and presents with #35 pills. This demonstrates a responsible attitude in regards to her medication regimen. Her current pain management includes hydrocodone-acetaminophen up to four doses a day, pregabalin reserving cyclobenzaprine usage for nighttime. Patient reports mild to moderate analgesia on her current regime of hydrocodone- acetaminophen 10-325 mg QID as needed with no noted side effects. Pain is rated at 6/10 left sided low back and left hip and leg pain and widespread body pain with muscle stiffness and spasms which she attributes to fibromyalgia. She has history of post-laminectomy syndrome, which has been a persistent issue following previous back surgery. The patient reports that the pain is located in the back and radiates down posterior left leg, and she has opted against further injections as she believes they would not be beneficial due to the severe disc degeneration and loss of disc height. The patient has been experiencing polyarthralgia, particularly in the joints of her toes, which persists despite increased physical activity and weight loss. She reports that her joints hurt consistently, regardless of her activity level, and she experiences similar pain in her neck. The patient has a history of obesity, with a BMI still above 40, and acknowledges that she is not yet at a healthy weight despite efforts to stay active and eat healthily. She also has a history of anxiety, depression, PTSD, daily stressors, fibromyalgia and thyroid disorder, which may contribute to her overall pain experience. Patient is also on a regimen that includes Lyrica, which she feels is not effective, and she is considering tapering off this medication. The patient manages constipation, a side effect of her medication, with Maalox and Docusate, and she is aware of how to handle this issue effectively. Denies any recent cough, cold, infection, fever or any significant changes in medical history since last office visit. COUNT INCLUDES THE [facility] Medical History Fibromyalgia Polyarthralgia Follicular thyroid cancer Morbid obesity with BMI of 45.0-49.9, adult Anxiety PTSD (post-traumatic stress disorder) Chronic left-sided lumbar radiculopathy Numbness and tingling of both upper extremities Disc disease, degenerative, cervical Cervical radiculitis Chronic low back pain Lumbosacral spondylosis Right hip pain Bilateral knee pain Opiate analgesic contract exists Post-laminectomy syndrome Spondylosis of lumbosacral spine with radiculopathy Spinal cord stimulator status Bipolar 1 disorder, depressed Broken humerus Surgical History S/P ORIF (open reduction internal fixation) fracture Right humeral fracture H/O: hysterectomy H/O laminectomy Social History Patient Tobacco Use Status: Never used Tobacco Current occupational status: disabled Review of Systems Const All systems reviewed & are unremarkable except as noted in HPI and below Physical Exam Vital Signs: Last Vital Signs Pulse 90 08/07/25 08:56 BP 188/79 H 08/07/25 08:56 Pulse Ox 97 08/07/25 08:56 Oxygen Delivery Method Room Air 08/07/25 08:56 BMI result Body Mass Index 44.5 General: Appears afebrile. Alert and oriented. Mood and affect appropriate. Follows and participates in conversation appropriately. Respiratory effort is unlabored. No cough. Able to transition from sit to stand unassisted. Ambulates with normal heel strike and toe off bilaterally. Eyes General: appearance normal, both eyes and all related structures Resp Effort & Inspection: normal respiratory effort, able to speak in complete sentences, no cough and no respiratory distress General: Yes no CVA tenderness Back/Spine/Pelvis Other: Limited lumbar ROM. Lumbar extension reproduces moderate pain. Flexion is intact and reproduces mild pain. Multiple widespread TTPs 16/16 bilaterally, including upper and lower extremities. Back: no CVA tenderness Cervical Spine: cervical ROM normal, cervical muscular tenderness and Cervical spine tenderness Thoracic/Lumbar Spine: thoracic and lumbar spine normal to inspection, Thoracic/lumbar spine scar(s), Lasegue's sign positive (L5-S1 distribution) on the left and diffuse, pain with thoraco-lumbar ROM, paraspinal muscle ten derness, thoraco-lumbar ROM limited, No thoracic spinal tenderness and lumbar spinal tenderness (L4-S1) Pelvis: buttock tenderness on the left Sacroiliac joints: bilaterally tender to palpation Extrem General: Yes capillary refill normal, Yes no clubbing, cyanosis or edema and Yes no calf tenderness Psych Appearance: grossly normal Mental Status: mental status grossly normal Speech and movement: Normal speech and movement present and Clear speech present Affect: normal affect Attitude: cooperative Thought process: Normal thought process present Thought content: Normal thought content present, suicidality (none), no hallucinations and Depressive thoughts present Insight: Good insight present (Psych) Judgement: Good judgement present (Psych) Assessment & Plan Assessment & Plan (1) Post-laminectomy syndrome: Code(s): M96.1 - Postlaminectomy syndrome, not elsewhere classified Category: Medical (2) Chronic low back pain: Code(s): M54.50 - Low back pain, unspecified; G89.29 - Other chronic pain Category: Medical (3) Lumbosacral spondylosis: Code(s): M47.817 - Spondylosis without myelopathy or radiculopathy, lumbosacral region Category: Medical (4) Fibromyalgia: Code(s): M79.7 - Fibromyalgia Category: Medical (5) Opiate analgesic contract exists: Code(s): Z79.891 - MCC (current) use of opiate analgesic Category: Medical (6) Disc disease, degenerative, cervical: Code(s): M50.30 - Other cervical disc degeneration, unspecified cervical region Category: Medical (7) Chronic left-sided lumbar radiculopathy: Code(s): M54.16 - Radiculopathy, lumbar region Category: Medical (8) Polyarthralgia: Code(s): M25.50 - Pain in unspecified joint Category: Medical Plan Patient has shown accountability for her medication regimen and the pill count was accurate. The patient reported no noted side effects. There is no evidence of misuse, abuse or diversion at this time. DribletT reviewed. Script for hydrocodone-acetaminophen 10-325 mg QID prn with advanced date on 08/14/25. Patient also takes pregabalin and cyclobenzaprine. Discussed with the patient the risks associated with muscle relaxants and other medications with potential MECHANICAL MANUFACTURING ENGINEER depression and opioid use. She is aware and verbalized an agreement to take the medications at least 2-4 hours apart and she has Narcan at home. The plan includes tapering down Lyrica due to its perceived ineffectiveness and potential side effects, with a gradual reduction to 25 mg before discontinuation. All questions and concerns have been answered patient agreed. Follow-up in 4-5 weeks for pill count and sooner as needed. Patient was informed and verbally consented to the use of an ambient scribe for clinic note documentation during this visit. Medications: Changed From pregabalin 75 mg PO BID 30 days 60 caps 2RF pain M79.7 - Fibromyalgia To pregabalin 50 mg PO BID 60 caps 0RF pain 30 days M79.7 - Fibromyalgia Refilled hydrocodone-acetaminophen 10-325 mg Partial Fill upon patient request. 1 tab PO QID PRN 120 tabs 0RF severe pain (scale score 7-10) 30 days M25.561 - Pain in right knee, M25.562 - Pain in left knee, M47.27 - Other spondylosis with radiculopathy, lumbosacral region, M96.1 - Postlaminectomy syndrome, not elsewhere classified, Z79.891 - joint terminal attack controller (current) use of opiate analgesic Coding Level of Care Code Est Pt Level 4 (36920) Complex EM visit Add On G2211 Diagnoses Post-laminectomy syndrome M96.1 Chronic low back pain M54.50; G89.29 Lumbosacral spondylosis M47.817 Fibromyalgia M79.7 Opiate analgesic contract exists Z79.891 Disc disease, degenerative, cervical M50.30 Chronic left-sided lumbar radiculopathy M54.16 Polyarthralgia M25.50
[2025-08-07 08:56] VITALS: BP 188/79; PULSE 90; O2SAT 97; BMI 44.5
--- OUTSIDE RECORDS SUMMARY | 2025-08-07 09:16 | XMS_ITS | Data Portability ---
Author Organization [place] - [facility], Allergy Address [address] [address] Care Team Providers Care Template Worker Name Role Phone DANDYMACHO MORRISITLANA Primary Care Provider Assessment Encounter Date Assessment Date Assessment LastModified [...] 08/22/2024 16:43:58 10/03/2024 10/03/2024 59 year old femrandall hagen presents for routine postoperative follow up [...] of follicular ca. Thank you. 2023 024 [email or web address] 2 [facility] Endocrinology Scheduling Dept, [address] [place] [address], [address], 4 09:42:52 Procedures None recorded. Surgeries thyroidect denzel, partial (SURG) 2023 024 [email or web address] [id number] Not available 16:46:26 Imaging None recorded. [...] [address]ith[address] Rhonda t, Samir baez d, [place] [id number] Not Available [address], [address], 09/29/2024 14:59:25 09/27/20 24 09/27/2024 TISSU E EXAM final diagnosis Thyroi d, left thyroi d-lobe ctomy: -ALEJANDRO GN THYRO ID WITH NO SPECI FIC PATHO LOGIC JC E -One benig n parat hyroi d gland with no speci fic patho logic jc e Elect sara gentile d by Lorin rainey MD on 2023 at 2:53 PM Not Available [address], [address], 09/29/2024 14:59:25 09/27/20 24 09/27/2024 TISSU E [...] piece each) . ONIEL oh Not Available [address], [address], 09/29/2024 14:59:25 09/27/20 24 09/27/2024 TISSU E EXAM disclaimer Unles s other steiner speci fied, all tissu e is 10% NB forma yanique fixed and paraf fin embed ded. Not Available [address], [address], 09/29/2024 14:59:25 09/27/20 24 09/27/2024 H&P No observ ation record ed. [address], [address], 09/29/2024 14:38:20 09/27/20 24 09/27/2024 op note No observ ation record ed. [address], [address], 09/29/2024 14:38:20 09/28/20 24 09/27/2024 disch arge summa ry No observ ation record ed. [email or web address] [address], [address], 09/29/2024 09:14:48 01/30/20 25 audio gram No observ ation record ed. BARCODE Not Available 2024 15:43:46 Result Notes None recorded. Problems Name Problem SNOMED Code Status Onset Date Resolution Date Notes Provider Name and Address Organization Details Recorded Time Non-toxic uninodula r goiter 325773838 Active 2023 Nontoxic single thyroid nodule; Note: Date Diagnosed : 12/30/2023 11:26 AM (E04.1) TOBY CARR MD [address] [place] [address], [place], [address] [place] [address] - [facility] 11:59:41 Thyroid nodule 597011223 Active 2023 TOBY CARR MD 100 [facility],[address], [place], [address], [place] - [facility] [place] 4 11:34:16 Primary malignant neoplasm of thyroid gland 97437186 Active 2023 Right thyroid follicula r carcinoma [id number] TOBY CARR MD 100 [facility], [address], [place], [address], [place] - [facility] [place] 4 11:29:18 Subjectiv e pulsatile tinnitus of left ear 291407913622 9103 Active 2024 ERI CONRAD 100 [facility], [address], [place], [address], [place] - [facility] [place] 5 13:44:54 Abnormal auditory perceptio n 37665060 Active 2024 TOBY CARR MD 100 [facility], E [facility], [place], [address], [place] - [facility] [place] 5 14:07:00 Problem Notes None recorded. Procedures Surgical History Date Name Laterality Status Provider Name and Address Organization Details Recorded Time 5 Air & Speech Audio with Tymps - 31845, 52556 & 82194 completed ERI CONRAD 100 [facility],[address], [address], [place] - [facility] [place] 01/29/2025 13:50:54 4 Repeat thyroid surgery completed TOYB CARR MD 100 [facility],[address], [address], [place] - [facility] [place] 09/27/2024 14:57:30 4 Partial removal of thyroid completed TOBY CARR MD 100 [facility],[address], [address], [facility] - [facility] [place] 08/14/2024 11:59:31 4 THYROIDECTOM Y, PARTIAL (SURG) completed Baltazar Marcus [place] - [facility] [place] 08/21/2024 09:08:04 Imaging Results None recorded. Procedure Notes None recorded. Medical Equipment None [...] MOUTH EVERY DAY FOR THYROID REPLACEM ENT 2024 active Not Available Not Available Not Avai lable epinephri ne 0.3 mg/0.3 mL injection , [...] t Available Lamictal active Medicati on ID: [id number] B rand Name: Lamictal Send Method: E-Prescr [...] t Available Vitals Date Recorded Body height Body mass index (BMI) Body weight Provider Name and Address Organization Details Last Updated DateTime 10/30/2024 170.18 cm 45.4 kg/m2 965618.79 g Romy Dunlap [place] - [facility] 10/30/2024 15:02:51 Date Recorded Body height Provider Name an d Address Organization Details Last Updated DateTime 01/29/2025 170.18 cm GREGORY ALVAREZ [place] - [facility] 01/29/2025 13:56:22 Date Recorded Body height Body mass index (BMI) Body weight Provider Name and Address Organization Details Last Updated DateTime 08/22/2024 170.18 cm 46.2 kg/m2 090803.75 g Romy Dunlap [facility] 08/22/2024 16:18:22 Date Recorded Body height Body mass index (BMI) Body weight Provider Name and Address Organization Details Last Updated DateTime 10/03/2024 170.18 cm 45.4 kg/m2 162497.79 g Cy Aparicio [facility] 10/03/2024 14:46:09 Social History None recorded. Functional Status None recorded. Mental Status None recorded. Family History Nothing Reported. Medical History No medical history recorded. Gynecological HistoryNo gynecological history recorded. Obstetrics History GPAL:G 0 P 0 0 0 0 Past Encounters Encounter ID Performer Location Encounter Start Date Encounter Closed Date Diagnosis/Indication Diagnosis SNOMED-CT Code Diagnosis ICD10 Code Diagnosis IMO Codes Diagnosis Note [id number] TOBY CARR MD [facility] [address] [address] 08/22/2024 16:09:24 08/22/2024 16:42:36 Primary malignant neoplasm of thyroid gland 01544833 C73 completion left thyroidect denzel [id number] BRIJESH GALEANA PA-C [facility] on [address] [place] [address] 10/03/2024 14:40:18 10/03/2024 14:54:17 Primary malignant neoplasm of thyroid gland 18538868 C73 [id number] TOBY CARR MD [facility] [address] [address] 10/30/2024 14:46:36 10/30/2024 16:11:15 Primary malignant neoplasm of thyroid gland 12213190 C73 [id number] TOBY CARR MD [facility] [address] [address] 01/29/2025 13:25:55 01/29/2025 14:06:54 Abnormal auditory perception 88252520 H93.299 Right Ear:Normal hearing with excellent speech [...] Bean Member ID Guarantor Name 01/24/2025 1 [facility] (MEDICAID HMO) [id number] Cris P P Linette [id number] Cris P Linette 08/22/2024 2 [facility] (MEDICAID HMO) [id number] Cris P Linette [id number] Cris P Linette Notes Date Note Type Note Provider Name and Address Organization Details Recorded Time 08/22/2024 text/html ROS as noted in the HPI 08/14/24 Yamileth HARO right hemithyroidpath: 18mm minimally invasive follicular carcinomastage: [id number] TOBY CARR MD [address] [place] [address], [address], [facility] - [facility] 08/22/2024 16:44:13 10/03/2024 text/html ROS as noted in the HPI 59 year old female presents for routine postoperative appointment status post completion left thyroidectomy. She is taking the Levothyroxine and Tums. Denies paresthesias around the mouth. She does have some longstanding numbness and tingling in her feet which is not worsened. She is unsure if she has endocrinology follow up appointment. RAMSES WOLF MD [address] [place] [address],[address], [address], [facility] - [facility] 10/04/2024 07:49:15 10/30/2024 text/html ROS as noted in the HPI Voice feels normalhas lab testing with Dr Eden and then followupon levothyroxine 200mcgdone with calcium 08/14/24 Yamileth HARO right hemithyroidpath: 18mm minimally invasive follicular carcinomastage: [id number] 09/27/24 Yamileth Alvarez completion left hemithyroidpath - no malignancy TOBY CARR MD [address] [place] [address],[address], [address], [facility] - [facility] 10/30/2024 15:17:48 01/29/2025 text/html ROS as noted in the HPI hearing losswas having difficulty with background noise or if speaker is not making eye contact Dr Eden, Endocrine replacement urauomj11/21/24 Yamileth HARO right hemithyroidpath: 18mm minimally invasive follicular carcinomastage: [id number]/4/24 Yamileth Alvarez completion left hemithyroidpath - no malignancy TOBY CARR MD [address] [place] [address], [place], [address], [facility] 01/29/2025 14:07:31 OBGyn Episode No OBEpisode recorded.
--- OUTSIDE RECORDS SUMMARY | 2025-08-07 09:16 | XMS_ITS | Clinical Summary ---
Author Organization [facility] Address [address] [place] [phone] Phone Care Team Providers Care Production Assembly Operator Name Role Phone Melissa Pennington MD Primary Care Provider [phone] Allergies No known active allergies Medications pregabalin [...] Date Malignant neoplasm of thyroi d gland ([facility] V24, [facility] V28) 09/27/2024 Surgical History Surgery Date Site/Laterality Comments THYROID SURGERY R LOBE ORIF HUMERUS FRACTURE X5 WITH HARDWARE SPINAL CORD STIMULATOR IMPLANT SPINAL CORD STIMULATOR REMOVAL HYSTERECTOMY BACK SURGERY BACK SURGERY MULTIPLE Medical History Medical History Date Comments Cancer ([facility] V24, [facility] V28) THYROID Bipolar 1 disorder ([facility] V24, [facility] V28) Anxiety Depression Fibromyalgia Arthritis SPINE COPD (chronic obstructive pulmonary disease) ([facility] V24, [facility] V28) Asthma Disease of thyroid gland Social History Tobacco Use Types Packs/Day Years Used Date Smoking Tobacco: Never Smokeless Tobacco: Never Tobacco Cessation:Counseling Given: Not Answered Interpersonal Safety Answer Date Record ed Physical Abuse Unrecognized value 09/27/2024 Verbal Abuse Unrecognized value 09/27/2024 Comments No Sex and Gender Information [...] Last Done Comments Breast Cancer Screening 1965 Colorectal Cancer Screening: Colonoscopy 1965 Hepatitis A Vaccines (1 of 2 - Risk 2-dose series) 1984 Hepatitis B Vaccines (1 of 3 - 19+ 3-dose series) 1984 Pneumococcal Vaccine: 50+ Years (1 of 2 - PCV) 1984 Zoster Vaccines (1 of 2) 1984 Cervical Cancer Screening: P ap Smear 1986 Cholesterol Screening (Lipid Panel) 09/14/2024 HIV Screening 09/14/2024 Hepatitis C Screening [...] this topic Medical Devices Implanted Type Area Cutting Supervisor Device Identifier Shelf Expiration Date Model / Serial / Lot Drsg Hemostat 4x8in Abs Ster Surgicel - Sn/A - [id number] Implanted:Qty: 1 on 09/27/2024 by Toby Carson MD at [facility] Hemostasis Left: Thyroid [employer] [...] active code status orders. Care Teams Production Assembly Operator Relationship Specialty Start Date End Date Melissa Pennington MD [address] [place] [id number] PCP - General Internal Medicine 09/25/24
--- OUTSIDE RECORDS SUMMARY | 2025-08-07 09:16 | XMS_ITS | Clinical Summary ---
Author Organization [facility]erged With [facility] Address [address] [place] [address] Phone Care Team Providers Care Blood And Plasma Laboratory Assistant Name Role Phone Melissa Pennington MD Primary [...] 2015 ZOSTER VACCINES (1 of 2) 2015 INFLUENZA VACCINE (#1) 2025 , 08/29/2021 COVID-19 VACCINE (4 - 2024-2 6 season) 2025 10/14/2021, 01/15/2021, 12/18/2020 RSV VACCINE (1 - 1-dose 75+ series) 2040 HEPATITIS A VACCINES Aged Out No long [...] topic Medical Devices Not on file Insurance [facility] [employer] [employer] ACO [facility] Member Subscriber Plan / Payer (Ef fective 2023-Present) Name:Cris Sue Relation to Subscriber:Self Name:Cris Sue Payer ID:Not on file Type:Medicaid [address] [facility] Member Subscriber Plan / Payer (Ef fective 2023-) Name:Cris Sue Relation to Subscriber:Self Name:Cris Sue Payer ID:Not on file Type:Medicaid [address] [facility] Member Subscriber Plan / Payer (Ef fective 2023-Present) Name:Cris Sue Relation to Subscriber:Self Name:Cris Sue Payer ID:Not on file Type:Medicaid [address] [facility]CO [facility] Care Teams Blood And Plasma Laboratory Assistant Relationship Specialty Start Date End Date Melissa Pennington MD [address] [place] [phone] PCP - General Internal Medicine 02/24/24 Additional Source Comments The information contained in this document represents components of the legal health record. It is not the complete legal health record.Merged With [facility]
--- OUTSIDE RECORDS SUMMARY | 2025-08-07 09:16 | XMS_ITS | Patient Health Record ---
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 [place] [address] [id number] Cris Wallace Self - patient is the insured Medical (General) History Medical History History ICD Code asthma COPD degenerative disc disease fibromyalgia bipolar disorder Surgical History Surgery Date(Month/Year) back surgery 2009 appendectomy 2009 neuro stimulator 2015 hysterectomy 2009?
== END 2025-08-07 09:09 | disposition home or self-care (01) ==
LOC: HO.PMC 08:45
PROVIDERS: PCP Internal Medicine; Visit Provider Nurse Practitioner Family
DX: M96.1 Postlaminectomy syndrome, not elsewhere classified (principal); M54.50 Low back pain, unspecified; G89.29 Other chronic pain; M47.817 Spondylosis without myelopathy or radiculopathy, lumbosacral region; M79.7 Fibromyalgia; Z79.891 Long term (current) use of opiate analgesic; M50.30 Other cervical disc degeneration, unspecified cervical region; M54.16 Radiculopathy, lumbar region; M25.50 Pain in unspecified joint
CPT/HCPCS: 99214; G2211

== ENCOUNTER → 2025-08-07 08:45 | Outpatient (BNVA) | payer OTHER, SELFPAY | PROVIDERS: PCP Internal Medicine; Visit Provider Nurse Practitioner Family | DX: M96.1 Postlaminectomy syndrome, not elsewhere classified (principal); M79.7 Fibromyalgia; M50.30 Other cervical disc degeneration, unspecified cervical region; M54.16 Radiculopathy, lumbar region; M25.50 Pain in unspecified joint; M54.50 Low back pain, unspecified; Z79.891 Long term (current) use of opiate analgesic | CPT/HCPCS: 99212 ==

== ENCOUNTER 2025-09-04 08:40 | Outpatient (AMB) | payer OTHER, SELFPAY ==
--- OUTSIDE RECORDS SUMMARY | 2023-02-01 23:00 | XMS_ITS | Encounter Summary ---
Author Organization [facility] Address [address] [facility] [address] [place] [phone] Phone Care Team Providers Care Tv Production Assistant Name Role Phone Unavailable Primary Care Provider Unavailabl e Encounter Details Date Type Department Care Team ([facility] st Contact Info) Description 02/02/2023 Hospital Encounter [facility] [address] [place] [phone] Toby Tatum MD [address] [place] [phone] [email or web address] Social History Tobacco Use Types Packs/Day Years Used Date Smoking Tobacco: Never Smokeless Tobacco: Never Education Answer Date Recorded Are you interested in more education? Not on juan e 01/04/2024 Are you concerned about learning? Not on file 01/04/2024 No 01/04/2024 No 01/04/2024 Digital Access Answer Date Recorded No 01/04/2024 No 01/04/2024 Reliable internet access at home? Not on file 01/04/2024 Device with a working camera? Not on file Comments Unknown Sex and Gender Information Value Date Recorded Sex Assigned at Female 02/24/2024 11:34 AM EDT Legal Sex Female 11:44 AM EDT Gender Identity Female 02/24/2024 11:34 AM EDT Sexual Orientation Lesbian or Baldwin 02/24/2024 11 :34 AM EDT documented as of this encounter Plan of Treatment Not on file documented as of this encounter Procedures Procedure Name Priority Date/Time Associated Diagnosis Comments US HEAD OUTSIDE (NO INTERPRETATION) Routine 02/02/2023 12:00 AM EDT documented in this encounter Results * US Head Outside (No interpretation) (02/02/2023 12:00 AM EDT) Narrative [facility] - 02/25/2024 4:51 PM EDT This study is for PACS storage only and not for interpretation. us Toby Tatum MD IMG OUTSIDE IMAGING W/OUT INTE RPRETATION Final Result [facility] documented in this encounter Visit Diagnoses Not on filedocumented in this encounter Additional Source Comments The information contained in this document represents components of the legal health record. It is not the complete legal health record.[facility]
--- NOTE | 2025-09-04 08:43 | A.OFFVIS_ITS ---
Vital Signs 09/04/25 08:52 Height 5 ft 7 in Weight 285 lb 2 oz BMI 44.7 BP 174/77 H Blood Pressure Location Rt brachial Position Sitting Pulse 91 Pulse Source Pulse Oximeter Pulse Oximetry (%) 98 Oxygen Delivery Method Room Air Intake Visit Reasons: PILL COUNT Intake Note: Cris comes in today for a pill count to hydrocodone-acetaminophen, patient should have 36 tablets and presents with 44 tablets which she last took today 09/04/15 at 7am. 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 Patient is supposed to have #36 Vicodin pills and presents with #44 pills. This demonstrates a responsible attitude in regards to her medication regimen. She reports reasonable analgesia on her current regime of hydrocodone-acetaminophen 10-325 mg QID as needed with no noted side effects. Patient also takes cyclobenzaprine at bedtime on as needed basis and tapering down pregabalin due to adverse effects of drowsiness and incoordination. Patient reports chronic low back pain with left lower extremity neuropathy. She also has polyarthralgia and fibromyalgia. Previously discussed interventional treatments for axial, radicular and post-laminectomy pain syndrome. Patient was planning to follow up with her Neurosurgeon at [facility] initially and has completed lumbar spine MRI. Patient reports increased back pain with activities, walking, fishing and exercises. Pain is rated at 6/10. Recently, she has been exposed to environments with potential Lyme disease risk, reporting a deer tick bite and flu-like symptoms, which have worsened her fibromyalgia. She plans to follow up with her primary care provider for Lyme disease testing. Denies any recent cough, cold, infection, fever or any other significant changes in medical history since last office visit. [facility] Medical History Fibromyalgia Polyarthralgia Follicular thyroid cancer Morbid obesity with BMI of 45.0-49.9, adult Anxiety PTSD (post-traumatic stress disorder) Chronic left-sided lumbar radiculopathy Numbness and tingling of both upper extremities Disc disease, degenerative, cervical Cervical radiculitis Chronic low back pain Lumbosacral spondylosis Right hip pain Bilateral knee pain Opiate analgesic contract exists Post-laminectomy syndrome Spondylosis of lumbosacral spine with radiculopathy Spinal cord stimulator status Bipolar 1 disorder, depressed Broken humerus Surgical History S/P ORIF (open reduction internal fixation) fracture Right humeral fracture H/O: hysterectomy H/O laminectomy Social History Patient Tobacco Use Status: Never used Tobacco Current occupational status: disabled Review of Systems Const All systems reviewed & are unremarkable except as noted in HPI and below Physical Exam Vital Signs: Last Vital Signs Pulse 91 09/04/25 08:52 BP 174/77 H 09/04/25 08:52 Pulse Ox 98 09/04/25 08:52 Oxygen Delivery Method Room Air 09/04/25 08:52 BMI result Body Mass Index 44.7 General: Appears afebrile. Alert and oriented. Mood and affect appropriate. Follows and participates in conversation appropriately. Respiratory effort is unlabored. No cough. Able to transition from sit to stand unassisted. Ambulates with normal heel strike and toe off bilaterally. Eyes General: appearance normal, both eyes and all related structures Psych Appearance: grossly normal Mental Status: mental status grossly normal Speech and movement: Normal speech and movement present and Clear speech present Affect: normal affect Attitude: cooperative Thought process: Normal thought process present Thought content: Normal thought content present, suicidality (none), no hallucinations and Depressive thoughts present Insight: Good insight present (Psych) Judgement: Good judgement present (Psych) Assessment & Plan Assessment & Plan (1) Post-laminectomy syndrome: Code(s): M96.1 - Postlaminectomy syndrome, not elsewhere classified Category: Medical (2) Chronic low back pain: Code(s): M54.50 - Low back pain, unspecified; G89.29 - Other chronic pain Category: Medical (3) Lumbosacral spondylosis: Code(s): M47.817 - Spondylosis without myelopathy or radiculopathy, lumbosacral region Category: Medical (4) Fibromyalgia: Code(s): M79.7 - Fibromyalgia Category: Medical (5) Opiate analgesic contract exists: Code(s): 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 The patient reported no noted side effects. There is no evidence of misuse, abuse or diversion at this time. Sarah reviewed. Script for hydrocodone-acetaminophen 10-325 mg QID prn with advanced date on 09/13/25. 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 She is aware and verbalized an agreement to take the medications at least 2-4 hours apart and she has Narcan at home. The plan includes tapering down Lyrica due to its perceived ineffectiveness and potential side effects, with a gradual reduction to 25 mg before discontinuation. She is advised to follow up with her primary care provider for Lyme disease testing due to recent exposure and symptoms. All questions and concerns have been answered patient agreed. Follow-up in 4-5 weeks for pill count and sooner as needed. Patient was informed and verbally consented to the use of an ambient scribe for clinic note documentation during this visit. Medications: Changed From pregabalin 50 mg PO BID 30 days 60 caps 0RF pain G89.29 - Other chronic pain, M54.50 - Low back pain, unspecified, M96.1 - Postlaminectomy syndrome, not elsewhere classified To pregabalin 25 mg PO BID 60 caps 0RF pain 30 days G89.29 - Other chronic pain, M54.50 - Low back pain, unspecified, M96.1 - Postlaminectomy syndrome, not elsewhere classified Refilled hydrocodone-acetaminophen 10-325 mg Partial Fill upon patient request. 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
[2025-09-04 08:52] VITALS: BP 174/77; PULSE 91; O2SAT 98; BMI 44.7
--- OUTSIDE RECORDS SUMMARY | 2025-09-04 08:52 | XMS_ITS | Clinical Summary ---
Author Organization [facility] Address [address] [place] [id number] Phone Care Team Providers Care Medical Information Specialist Name Role Phone Melissa Pennington MD Primary Care Provider [phone] Allergies No known active allergies Medications pregabalin [...] Date Malignant neoplasm of thyroi d gland ([facility] V24, [facility] V28) 09/27/2024 Surgical History Surgery Date Site/Laterality Comments THYROID SURGERY R LOBE ORIF HUMERUS FRACTURE X5 WITH HARDWARE SPINAL CORD STIMULATOR IMPLANT SPINAL CORD STIMULATOR REMOVAL HYSTERECTOMY BACK SURGERY BACK SURGERY MULTIPLE Medical History Medical History Date Comments Cancer ([facility] V24, [facility] V28) THYROID Bipolar 1 disorder ([facility] V24, [facility] V28) Anxiety Depression Fibromyalgia Arthritis SPINE COPD (chronic obstructive pulmonary disease) ([facility] V24, [facility] V28) Asthma Disease of thyroid gland Social [...] of 2 - Risk 2-dose series) 1984 Pneumococcal Vaccine: 50+ Years (1 of 2 - PCV) 1984 Zoster Vaccines (1 of 2) 1984 Cervical Cancer Screening: P ap Smear 1986 RSV Immunization Adult Patients (1 - Risk 50-74 years 1-dose series) 2015 Cholesterol Screening (Lipid Panel) 09/14/2024 HIV Screening 09/14/2024 Hepatitis C Screening 09/14/2024 Social Influencers of Health Screening 09/14/2024 Depression Screening 10/25/2024 COVID-19 Vaccine (4 - 2024-2 6 season) 2025 10/14/2021, 01/15/2021, 12/18/2020 Influenza Vaccine (#1) 2025 3, 08/29/2021, 08/26/2020 Hepatitis B Vaccines (1 of 3 - Risk 3-dose series) 2025 DTaP,Tdap,and Td Vaccines (2 - Td or Tdap) 08/26/2030 08/26/2020 HIB Vaccines Aged Out No longer eligi [...] this topic Medical Devices Implanted Type Area Machine Setter Device Identifier Shelf Expiration Date Model / Serial / Lot Drsg Hemostat 4x8in Abs Ster Surgicel - Sn/A - [id number] Implanted:Qty: 1 on 09/27/2024 by Toby Carson MD at [facility] Hemostasis Left: Thyroid [employer] 12/23/20271951 [...] currently active code status orders. Care Teams Medical Information Specialist Relationship Specialty Start Date End Date Melissa Pennington MD [address] [place] [id number] PCP - General Internal Medicine 09/25/24
--- OUTSIDE RECORDS SUMMARY | 2025-09-04 08:52 | XMS_ITS | Clinical Summary ---
Author Organization [facility] Address [address] [place] [id number] Phone Care Team Providers Care Director Enterprise Systems Name Role Phone Melissa Pennington MD Primary [...] Devices Not on file Insurance [facility] [employer] [employer] [facility] Member Subscriber Plan / Payer (Ef fective 2023-Present) Name:Cris Sue Relation to Subscriber:Self Name:Cris Sue Payer ID:Not on file Type:Medicaid [address] [facility] Member Subscriber Plan / Payer (Ef fective 2023-) Name:Cris Sue Relation to Subscriber:Self Name:Cris Sue Payer ID:Not on file Type:Medicaid [address] [facility] Member Subscriber Plan / Payer (Ef fective 2023-Present) Name:Cris Sue Relation to Subscriber:Self Name:Cris Sue Payer ID:Not on file Type:Medicaid [address] [facility] Care Teams Director Enterprise Systems Relationship Specialty Start Date End Date Melissa Pennington MD [address] [place] [id number] PCP - General Internal Medicine 02/24/24 Additional Source Comments The information contained in this document represents components of the legal health record. It is not the complete legal health record.[facility]
--- OUTSIDE RECORDS SUMMARY | 2025-09-04 08:52 | XMS_ITS | Patient Health Record ---
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 [place] [address] [id number] Cris Wallace Self - patient is the insured Medical (General) History Medical History History ICD Code asthma COPD degenerative disc disease fibromyalgia bipolar disorder Surgical History Surgery Date(Month/Year) back surgery 2009 appendectomy 2009 neuro stimulator 2015 hysterectomy 2009?
== END 2025-09-04 09:04 | disposition home or self-care (01) ==
LOC: HO.PMC 08:40
PROVIDERS: PCP Internal Medicine; Visit Provider Nurse Practitioner Family
DX: M96.1 Postlaminectomy syndrome, not elsewhere classified (principal); M54.50 Low back pain, unspecified; G89.29 Other chronic pain; M47.817 Spondylosis without myelopathy or radiculopathy, lumbosacral region; M79.7 Fibromyalgia; Z79.891 Long term (current) use of opiate analgesic; M50.30 Other cervical disc degeneration, unspecified cervical region; M54.16 Radiculopathy, lumbar region
CPT/HCPCS: 99214; G2211

== ENCOUNTER → 2025-09-04 08:40 | Outpatient (BNVA) | payer OTHER, SELFPAY | PROVIDERS: PCP Internal Medicine; Visit Provider Nurse Practitioner Family | DX: M47.817 Spondylosis without myelopathy or radiculopathy, lumbosacral region (principal); M54.50 Low back pain, unspecified; M96.1 Postlaminectomy syndrome, not elsewhere classified; M79.7 Fibromyalgia; M50.30 Other cervical disc degeneration, unspecified cervical region; M54.16 Radiculopathy, lumbar region; G89.29 Other chronic pain; Z79.891 Long term (current) use of opiate analgesic | CPT/HCPCS: 99212 ==